=== PATIENT | male | born 1930 | race Caucasian/White ===

== ENCOUNTER 2017-02-12 05:47 | Inpatient (IN) | payer OTHER ==
[~2017-02-12] VITALS: Ht 188 cm; Wt 95.7 kg
[2017-02-12] VITALS (12 sets, daily range): BP systolic 84–130; BP diastolic 53–95; PULSE 47–72; TEMP 36.4–36.7; O2SAT 92–100; Ht 188 cm; Wt 95.7 kg
--- NOTE | 2017-02-12 08:29 | DIAGNOSTIC IMAGING REPORT ---
CHEST ONE VIEW PORTABLE HISTORY: Respiratory failure, seizure, intubated COMPARISON: Chest 02/12/2017. FINDINGS: Endotracheal tube terminates 4.3 cm from the antonino. No pleural effusions. No pneumothorax. Improved interstitial thickening within the left lung. Right perihilar airspace opacity has slightly progressed. The heart is stable in size. 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 IMPRESSION: 1. Right perihilar groundglass airspace opacities have slightly progressed. There is improvement in the interstitial thickening within the left lung. This may represent asymmetric pulmonary edema or an atypical pneumonia. 2. Endotracheal tube terminates 4.3 cm from the antonino. Electronically signed by: Warren Hwang M.D. 02/12/2017 8:27 AM Dictated Date/Time: 02/12/2017 8:20 AM
--- NOTE | 2017-02-12 09:03 | History and Physical ---
History & Physical Date & Time of Service: Feb 12, 2017 at 08:38 Chief Complaint: Encephalopathy Primary Care Physician: No Doctor, Assigned History of Present Illness Source: clinic records, hospital records Patient is an 86 y/o male, with PMHx of HTN, COPD, cardiac arrhythmia, hypothyroidism, abdominal aneurysm, CKD, h/o TIA/CVA, and GERD, who presented to [facility] due to confusion. Patient is currently intubated and history came from transferred records. Per records, patient lives with his daughter. He normally sleeps in a recliner, and was found beside the recliner, confused, slurred speech, and bedside table knocked over. He was last noted in his normal state of health around 10:00PM on 02/11. He does have a h/o TIAs in the past with similar presentation. Case was reviewed with [facility] neurologist that agreed patient did not qualify for thrombolytics. He was recently diagnosed with an abdominal aneurysm, but according to records, it has been decided that no intervention will be done. ROS cannot be obtained secondary to sedation/intubation. Per LABOR CUSTODIAN, patient was agitated at [facility] and was treated with IV Ativan. Had pulmonary edema w/ O2 sats in the 70s. Per records, patient did NOT want mechanical ventilation but POA overruled. He was treated w/ IV Bumex and has diuresed around 1200 ml since transfer. At [facility]: Head CT- unremarkable for acute process EEG- abnormal w/ moderate degree of encephalopathy and focal neuronal disturbance present in L parasagittal head region EKG without acute ischemic changes, trop mildly elevated at 0.063 Past Medical/Surgical History HTN COPD cardiac arrhythmia abdominal aneurysm h/o TIA/CVA Hypothyroidism GERD CKD Family History Unable to obtain at this time Social History Unable to obtain complete social history at this time Smoking Status: Unknown if Ever Smoked Housing status: lives with family (daughter ) Allergies Coded Allergies: Phenytoin (Verified Allergy, Severe, rash, 02/12/17) Physical Exam Vital Signs Date Time Temp Pulse Resp B/P (MAP) Pulse Ox O2 Delivery O2 Flow Rate FiO2 02/12/17 08:08 36.4 62 18 84/62 (69) 92 Mechanical Ventilator 80 General Appearance: no apparent distress Head: normocephalic, atraumatic Eyes: PERRL Neck: supple Respiratory/Chest: no accessory muscle use, + crackles (bilateral lung bases ) , + pertinent finding (intubated) Abdomen/GI: normal bowel sounds, non tender, soft Genitourinary - Male: + pertinent finding (Abebe- clear/yellow urine ) Extremities/Musculoskelatal: + swelling (+1-2 pitting edema of bilateral lower extremities ) Neurologic/Psych: + pertinent finding (sedated but responds to stimulati with movement ) Skin: normal color, warm/dry, no rash Diagnostics Laboratory Results Microbiology Results 02/12/17 MRSA DNA Surveillance Screen, Received Pending Diagnostic Radiology CHEST ONE VIEW PORTABLE HISTORY: Respiratory failure, seizure, intubated COMPARISON: Chest 02/12/2017. FINDINGS: Endotracheal tube terminates 4.3 cm from the antonino. No pleural effusions. No pneumothorax. Improved interstitial thickening within the left lung. Right perihilar airspace opacity has slightly progressed. The heart is stable in size. 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 IMPRESSION: 1. Right perihilar groundglass airspace opacities have slightly progressed. There is improvement in the interstitial thickening within the left lung. This may represent asymmetric pulmonary edema or an atypical pneumonia. 2. Endotracheal tube terminates 4.3 cm from the antonino. Electronically signed by: Warren Hwang M.D. 02/12/2017 8:27 AM Dictated Date/Time: 02/12/2017 8:20 AM The status of this report is Signed. Draft = Not yet reviewed or approved by Radiologist. Signed = Reviewed and approved by Radiologist. KUB CLINICAL HISTORY: OGT placement verification COMPARISON STUDY: No previous studies for comparison. FINDINGS: The study is performed in a portable fashion and is limited from a technical standpoint. An enteric tube projects over the gastric cardia. There is no pathologic bowel dilatation. There is a calcified abdominal aortic aneurysm. IMPRESSION: 1. Calcified abdominal aortic aneurysm measuring 5 cm uncorrected for magnification 2. Enteric tube projected over the gastric cardia Electronically signed by: Jeffry Jones M.D. 02/12/2017 11:53 AM Dictated Date/Time: 02/12/2017 11:51 AM The status of this report is Signed. Draft = Not yet reviewed or approved by Radiologist. Signed = Reviewed and approved by Radiologist. Impression Assessment and Plan Patient is an 86 y/o male, with PMHx of HTN, COPD, cardiac arrhythmia, hypothyroidism, abdominal aneurysm, CKD, h/o TIA/CVA, and GERD, who was a direct transfer from [facility] because of altered mental status, complicated by respiratory distress requiring ventilation. 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: - Intubated- sedation w/ Precedex - IV Lasix 40 mg BID - Abebe placed- monitor I&Os and daily weights - ECHO- mild LVH, systolic function normal, grade I diastolic dysfunction, right ventricular systolic pressure is normal Elevated trop, ?secondary to NSTEMI vs demand ischemia: - Cardiac monitoring - Trend cardiac enzymes - ASA 81 mg daily CKD- unknown baseline kidney function: Follow PRP Hypothyroidism- TSH 3.060: Continue Synthroid 25 mcg daily h/o TIA/CVA: Started ASA 81 mg daily Abdominal aneurysm: No surgical intervention desired GI prophylaxis: IV Pepcid DVT prophylaxis: Heparin SQ TID Code Status: FULL, NO MECHANICAL VENTILATION Dispo: From home, lives w/ daughter- will need CM and PT/OT consultation once status improves Level of Care Critical Care Resuscitation Status [facility] Prophylaxis Given or contraindicated: Unfractionated heparin SQ
[2017-02-12 09:09] LABS: BASO % 0.1 %; BASO ABS # 0.01 K/uL (0-0.2); COMPLETE YES; HEMATOCRIT 37.3 % (42-52); IG% 0.3 %; LYMPH % 5.3 %; LYMPH ABS # 0.67 K/uL (1.2-3.4); MEAN CELL VOLUME 92.6 fL (80-100); MEAN CORPUSCULAR HEMOGLOBIN 31.3 pg (25-34); MEAN CORPUSCULAR HGB CONC 33.8 g/dl (32-36); MEAN PLATELET VOLUME 10.6 fL (7.4-10.4); MONO % 13.3 %; PLATELET COUNT 119 K/uL (130-400); RED BLOOD COUNT 4.03 M/uL (4.7-6.1); WHITE BLOOD COUNT 12.67 K/uL (4.8-10.8)
[2017-02-12 09:21] LABS: INR 1.1 (0.9-1.1); PARTIAL THROMBOPLASTIN RATIO 1.1
[2017-02-12] MEDS ORDERED: PERFLUTREN LIPID MICROSPHERE (DEFINITY) IV ONE (09:29)
[2017-02-12 09:35] LABS: BUN/CREATININE RATIO 12.8 (10-20); CALCIUM 8.2 mg/dl (8.5-10.1); CREATININE 2.14 mg/dl (0.60-1.40); MAGNESIUM 1.9 mg/dl (1.8-2.4); POTASSIUM 3.6 mmol/L (3.5-5.1)
[2017-02-12] MEDS ORDERED: NURSING VERBAL MED ORDER ONE (09:45)
[2017-02-12 09:55] LABS: ALB/GLOB RATIO 1.1 (0.9-2); PHOSPHORUS 2.8 mg/dl (2.5-4.9)
[2017-02-12] MEDS ORDERED: DexMEDEtomidine HCL IV 200 MCG in SODIUM CHLORIDE 0.9% 50ML 48 ML IV STA (09:58)
[2017-02-12] MEDS ORDERED: FAMOTIDINE IV INJ 20 MG in DEXTROSE 5% 100ML 100 ML IV SCH (10:00)
[2017-02-12 10:04] LABS: ISTAT ALLEN TEST Pass; ISTAT ARTERIAL BLOOD GAS HCO3 17 meq/L (19-24); ISTAT ARTERIAL BLOOD GAS PCO2 30 mmHg (35-46); ISTAT ARTERIAL BLOOD GAS PO2 72 mmHg (80-95); ISTAT ARTERIAL BLOOD GAS pH 7.36 (7.35-7.45); ISTAT CARBON DIOXIDE 18 mEq/l (24-31); ISTAT DELIVERY SYSTEM Ventilator; ISTAT FIO2 50 %; ISTAT PEEP 5; ISTAT RATE 16; ISTAT SITE L Radial; VE 8; Vt 500
[2017-02-12] MEDS: DexMEDEtomidine HCL IV 200 MCG in SODIUM CHLORIDE 0.9% 50ML 48 ML IV PRN ×3 (10:12→20:31)
[2017-02-12] MEDS: ASPIRIN 81 MG CHEW PO SCH ×2 (10:15→11:15)
[2017-02-12] MEDS: FUROSEMIDE INJ 40 MG in SYRINGE 0 ML IV SCH ×2 (10:50→21:00)
[2017-02-12] MEDS: FAMOTIDINE IV INJ 20 MG in SYRINGE 3 ML IV SCH ×2 (10:50→22:22)
--- NOTE | 2017-02-12 11:54 | DIAGNOSTIC IMAGING REPORT ---
KUB CLINICAL HISTORY: OGT placement verification COMPARISON STUDY: No previous studies for comparison. FINDINGS: The study is performed in a portable fashion and is limited from a technical standpoint. An enteric tube projects over the gastric cardia. There is no pathologic bowel dilatation. There is a calcified abdominal aortic aneurysm. IMPRESSION: 1. Calcified abdominal aortic aneurysm measuring 5 cm uncorrected for magnification 2. Enteric tube projected over the gastric cardia Electronically signed by: Jeffry Jones M.D. 02/12/2017 11:53 AM Dictated Date/Time: 02/12/2017 11:51 AM
[2017-02-12] MEDS ORDERED: POTASSIUM CHLORIDE PWD 20 MEQ PACK PO ONE (12:00)
--- NOTE | 2017-02-12 12:05 | ECHOCARDIOGRAM REPORT ---
*NOTICE TO RECEIVING LIBERTARIAN AGENCY This information is strictly Confidential and protected under [place] law. [place] law prohibits you from making any further disclosure of this information unless further disclosure is expressly permitted by the written consent of the person to whom it pertains or is authorized by law. A general authorization for the release of medical or other information is not sufficient for this purpose. Hospital accepts no responsibility if the information is made available to any other person, INCLUDING THE PATIENT. Interpretation Summary * Name: SOCRATES SMITH Study Date: 02/12/2017 10:04 AM BP: 130/95 mmHg * Patient Location: [facility] HR: 72 * : 1930 (M/d/yyyy) Gender: Male Height: 74 in * Age: 86 yrs Ethnicity: CA Weight: 216 lb * Performed By: Sudha Caruso RDCS * * Reason For Study: AFIB * BSA: 2.2 m2 * -- Conclusions -- * Overall image quality was suboptimal * There is mild concentric left ventricular hypertrophy. * Left ventricular systolic function is normal. * Grade I diastolic dysfunction, (abnormal relaxation pattern). * Right ventricular systolic pressure is normal. Procedure Details * A contrast injection of Definity was performed to improve assessment of LV function. * Contrast was injected into an intravenous site in the right arm. * One vial of Definity ultrasound contrast was diluted in normal saline to a total volume of 10 ml. A total of '2' ml of solution was administered during imaging. * Lot # [id number] of Definity utilized for procedure. * Expiration date MAR 18. * The attending nurse who injected the contrast agent was SURINDER CONLEY. Left Ventricle * The left ventricle is grossly normal size. * There is mild concentric left ventricular hypertrophy. * Ejection Fraction = 50-55%. * Left ventricular systolic function is normal. * Grade I diastolic dysfunction, (abnormal relaxation pattern). * Regional wall motion abnormalities cannot be excluded due to limited visualization. Right Ventricle * The right ventricle is normal in size and function. * The right ventricular systolic function is normal as assessed by tricuspid annular plane systolic excursion (TAPSE) (normal >1.5 cm). Atria * The left atrial size is normal. * Right atrium not well visualized. Mitral Valve * The mitral valve is grossly normal. * Significant mitral regurgitation is absent. Tricuspid Valve * The tricuspid valve is not well visualized. * There is trace tricuspid regurgitation. * Right ventricular systolic pressure is normal. Aortic Valve * The aortic valve is not well visualized. * No hemodynamically significant valvular aortic stenosis. * There is no significant aortic regurgitation. Pericardium/Pleural * There is no pericardial effusion. MMode 2D Measurements and Calculations LA dimension 3.5 cm LVAd ap4 34.2 cm\S\2 LVLd ap4 8.8 cm EDV(MOD-sp4) 110.5 ml EDV(sp4-el) 112.4 ml LVAs ap4 19.3 cm\S\2 LVLs ap4 7.9 cm ESV(MOD-sp4) 39.9 ml ESV(sp4-el) 39.9 ml EF(MOD-sp4) 63.9 % EF(sp4-el) 64.5 % LVAd ap2 33.1 cm\S\2 LVLd ap2 8.2 cm EDV(MOD-sp2) 108.9 ml EDV(sp2-el) 112.7 ml LVAs ap2 19.8 cm\S\2 LVLs ap2 7.7 cm ESV(MOD-sp2) 42.8 ml ESV(sp2-el) 43.6 ml EF(MOD-sp2) 60.7 % EF(sp2-el) 61.3 % LVLd %diff -7.42 % EDV(MOD-bp) 114.2 ml LVLs %diff -3.11 % ESV(MOD-bp) 40.8 ml EF(MOD-bp) 64.3 % SV(MOD-sp4) 70.6 ml SI(MOD-sp4) 31.4 ml/m\S\2 SV(MOD-sp2) 66.1 ml SI(MOD-sp2) 29.4 ml/m\S\2 SV(MOD-bp) 73.5 ml SI(MOD-bp) 32.7 ml/m\S\2 SV(sp4-el) 72.5 ml SI(sp4-el) 32.3 ml/m\S\2 SV(sp2-el) 69.1 ml SI(sp2-el) 30.8 ml/m\S\2 Doppler Measurements and Calculations MV E max renita 55.3 cm/sec MV A max renita 92.9 cm/sec MV E/A 0.60 MV dec time 0.29 sec Ao V2 max 97.4 cm/sec Ao max PG 3.8 mmHg Ao max PG (full) 2.8 mmHg LV V1 max PG 0.99 mmHg LV V1 max 49.8 cm/sec TR max renita 182.8 cm/sec
--- NOTE | 2017-02-12 12:42 | Critical Care Consultation ---
Critical Care Consultation Date of Consultation: Feb 12, 2017. Attending Physician: Haider Le M.D. Reason for Consultation: Respiratory failure History of Present Illness This is a 86 year-old male transferred from [facility] for further management. The patient has a history of TIA/CVA, seizures, aortic aneurysm, carotid disease , was brought to ED of [facility] on the morning 02/11 after he was found to be confused, with slurring of the speech next to the recliner where he usually sleeps. His SBP was elevated at 190. Was admitted, CT brain was negative for CVA, neurology was contacted, deemed not a candidate for thrombolysis, recommended a CT angiogram of the brain, but could not be performed because of kidney insufficiency. Overnight, the patient was restless, was medicated with Ativan couple of times. Later he developed rapid a-fib, became restless again, developed pink frothy sputum, required endotracheal intubation. IV fluids were stopped. Patient was transferred by helicopter to our ICU. Patient displayed purposeful actions, reaching for the ET tube, was medicated with 200 mcg of fentanyl en route. Past Medical/Surgical History TIA/CVA HTN Hypothyroidism COPD Arrhythmia GERD Aortic aneurysm - refused surgery [place] Family History Unable to obtain Social History Unable to obtain Smoking Status: Unknown if Ever Smoked Allergies Coded Allergies: Phenytoin (Verified Allergy, Severe, rash, 02/12/17) Current Inpatient Medications Current Inpatient Medications Medications (Trade) Dose Ordered Sig/Casey Route Start Time Stop Time Status Last Admin Dose Admin Dexmedetomidine HCl 200 mcg/ Sodium Chloride 50 ml @ 0 mls/hr Q0M PRN IV 02/12/17 09:45 02/16/17 09:44 02/12/17 10:12 9.8 MLS/HR Furosemide 40 mg/ Syringe 4 ml @ 4 mls/min BID IV 02/12/17 10:00 03/14/17 09:59 02/12/17 10:50 4 MLS/MIN Aspirin (Aspirin Chew) 324 mg QD PO 02/12/17 10:15 03/14/17 10:14 02/12/17 11:15 324 MG Heparin Sodium (Porcine) (Heparin Sq 5000 Unit/0.5ml) 5,000 unit Q8 SQ 02/12/17 14:00 03/14/17 13:59 Famotidine 20 mg/ Syringe 5 ml @ 2.5 mls/min Q12H IV 02/12/17 11:00 03/14/17 10:59 02/12/17 10:50 2.5 MLS/MIN Potassium Chloride (Klor-Con Pwd) 40 meq ONE PO 02/12/17 11:00 03/14/17 10:59 UNV Review of Systems Unable to obtain as the patient is intubated Physical Exam Date Time Temp Pulse Resp B/P (MAP) Pulse Ox O2 Delivery O2 Flow Rate FiO2 02/12/17 10:00 72 18 130/95 (107) 100 Mechanical Ventilator 50 02/12/17 08:28 36.4 62 19 84/62 95 Mechanical Ventilator 50 02/12/17 08:08 36.4 62 18 84/62 (69) 92 Mechanical Ventilator 80 02/12/17 07:41 50 Elderly male, intubated General Appearance: WD/WN, no apparent distress Head: normocephalic, atraumatic Eyes: PERRLA, no discharge, sclerae normal Neck: trachea midline, supple Respiratory: other (bilateral crackles) Cardiovasular: regular rate/rhythm, normal S1S2 Abdomen: non tender, no rebound, no guarding Upper Extremities: no edema Lower Extremities: edema Edema: Bilateral LE (2+) Neuro: other (sedated, but has puproseful movements with greenhouse staff sedation) Laboratory Results Last 24 Hours Test 02/12/17 08:58 02/12/17 09:45 02/12/17 10:21 White Blood Count 12.67 K/uL Red Blood Count 4.03 M/uL Hemoglobin 12.6 g/dL Hematocrit 37.3 % Mean Corpuscular Volume 92.6 fL Mean Corpuscular Hemoglobin 31.3 pg Mean Corpuscular Hemoglobin Concent 33.8 g/dl Platelet Count 119 K/uL Mean Platelet Volume 10.6 fL Neutrophils (%) (Auto) 81.0 % Lymphocytes (%) (Auto) 5.3 % Monocytes (%) (Auto) 13.3 % Eosinophils (%) (Auto) 0.0 % Basophils (%) (Auto) 0.1 % Neutrophils # (Auto) 10.26 K/uL Lymphocytes # (Auto) 0.67 K/uL Monocytes # (Auto) 1.69 K/uL Eosinophils # (Auto) 0.00 K/uL Basophils # (Auto) 0.01 K/uL RDW Standard Deviation 50.8 fL RDW Coefficient of Variation 15.0 % Immature Granulocyte % (Auto) 0.3 % Immature Granulocyte # (Auto) 0.04 K/uL Prothrombin Time 12.0 SECONDS Prothromb Time International Ratio 1.1 Activated Partial Thromboplast Time 29.1 SECONDS Partial Thromboplastin Ratio 1.1 Sodium Level 141 mmol/L Potassium Level 3.6 mmol/L Chloride Level 108 mmol/L Carbon Dioxide Level 22 mmol/L Anion Gap 11.0 mmol/L Blood Urea Nitrogen 27 mg/dl Creatinine 2.14 mg/dl Est Creatinine Clear Calc Drug Dose 27.8 ml/min Estimated GFR () 30.9 Estimated GFR (Non- 26.7 BUN/Creatinine Ratio 12.8 Random Glucose 108 mg/dl Calcium Level 8.2 mg/dl Phosphorus Level 2.8 mg/dl Magnesium Level 1.9 mg/dl Total Bilirubin 1.5 mg/dl Aspartate Amino Transf (AST/SGOT) 57 U/L Alanine Aminotransferase (ALT/SGPT) 20 U/L Alkaline Phosphatase 86 U/L Total Creatine Kinase 1928 U/L Troponin I 0.394 ng/ml Pro-B-Type Natriuretic Peptide 49478 pg/ml Total Protein 6.5 gm/dl Albumin 3.4 gm/dl Globulin 3.1 gm/dl Albumin/Globulin Ratio 1.1 Thyroid Stimulating Hormone (TSH) 3.060 uIu/ml Blood Gas Sample Site L Radial Bedside Blood Gas pH (LAB) 7.36 Bedside Blood Gas pCO2 (LAB) 30 mmHg Bedside Blood Gas pO2 (LAB) 72 mmHg Bedside Blood Gas HCO3 (LAB) 17 meq/L Bedside Blood Gas Total CO2 18 mEq/l Bedside Blood Gas Base Excess (LAB) -8.0 meq/L Bedside Blood Gas O2 Saturation 95.0 % Pelon Test Pass Oxygen Delivery Device Ventilator Bedside Oxygen Rate (breaths/min) 16 Blood Gas Minute Ventilation 8 Bedside FiO2 50 % Blood Gas Tidal Volume 500 Blood Gas PEEP 5 Procalcitonin 0.19 ng/ml Diagnostic Results CXR today: 1. Right perihilar groundglass airspace opacities have slightly progressed. There is improvement in the interstitial thickening within the left lung. This may represent asymmetric pulmonary edema or an atypical pneumonia. 2. Endotracheal tube terminates 4.3 cm from the antonino. CT brain 02/11/17: No bleeding, no acute CVA Assessment & Plan 86 year old male, transferred from [facility], admitted for AMS, developed respiratory distress requiring mechanical ventilation, consistent with pulmonary edema. 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 Daily sedation vacation Avoid benzos. No evidence of seizures. EEG did not show seizures at [place] Pulmonary: Daily spontaneous breathing trials Elevate head Diuresing the patient CXR reviewed, given history, more consistent with pulmoanry edema CVS: Diuresis with BID Lasix 40 mg Monitor troponin levels. Start ASA Echo reviewed, EF seems preserved, no significant valvular disease, but has some LVH and diastolic disfunction. BP is soft, would not tolerate NTG paste HR in the 60s, which is helpful in diastolic heart failure Renal: Has known CKD, not sure of baseline creatinine Supplement K for now, especially when diuresed Keep Abebe in Endo: Resume Synthroid ID: Procalcitonin 0.19 Low threshold to institute Abx, but for the time will hold off GI: NGT inserted Start tube feedings Pepcid for GI bleeding prophylaxis DVT prophylaxis: SC heparin 5000 units q 8 h Critical care time spent with patient, reviewing the chart, greater than 35 minutes. Avtar Waters MD
[2017-02-12] MEDS: HEPARIN SOD 5000 UNIT/0.5 ML CARP SQ SCH ×2 (15:07→22:22)
[2017-02-12] MEDS ORDERED: ALBUMIN HUMAN 25% 12.5 GM/50 ML VIAL IV ONE (20:45)
[2017-02-13] VITALS (17 sets, daily range): BP systolic 111–167; BP diastolic 65–96; PULSE 41–92; TEMP 36.2–37; O2SAT 92–100
[2017-02-13] MEDS: DexMEDEtomidine HCL IV 200 MCG in SODIUM CHLORIDE 0.9% 50ML 48 ML IV PRN ×2 (01:03→04:43)
[2017-02-13] MEDS ORDERED: FENTANYL CITRATE INJ 50 MCG/1 ML 2 ML VIAL IV ONE (01:30)
[2017-02-13] MEDS ORDERED: FENTANYL CITRATE INJ 50 MCG/1 ML 2 ML VIAL IV PRN (04:45)
[2017-02-13 05:20] LABS: ISTAT ARTERIAL BLOOD GAS HCO3 22 meq/L (19-24); ISTAT ARTERIAL BLOOD GAS PCO2 36 mmHg (35-46); ISTAT ARTERIAL BLOOD GAS PO2 129 mmHg (80-95); ISTAT CARBON DIOXIDE 23 mEq/l (24-31); ISTAT DELIVERY SYSTEM Ventilator; ISTAT FIO2 40 %; ISTAT PEEP 5; ISTAT RATE 14; ISTAT SITE L Radial; VE 7.1; Vt 500
[2017-02-13] MEDS: HEPARIN SOD 5000 UNIT/0.5 ML CARP SQ SCH ×3 (06:02→21:06)
[2017-02-13 06:07] LABS: HEMATOCRIT 37.2 % (42-52); MEAN CELL VOLUME 92.1 fL (80-100); MEAN CORPUSCULAR HEMOGLOBIN 30.2 pg (25-34); MEAN CORPUSCULAR HGB CONC 32.8 g/dl (32-36); RED BLOOD COUNT 4.04 M/uL (4.7-6.1); WHITE BLOOD COUNT 9.14 K/uL (4.8-10.8)
[2017-02-13] MEDS: LEVOTHYROXINE 25 MCG TAB PO SCH (06:34)
[2017-02-13 06:40] LABS: BUN/CREATININE RATIO 18.1 (10-20); CALCIUM 8.3 mg/dl (8.5-10.1); CREATININE 2.19 mg/dl (0.60-1.40); MAGNESIUM 1.9 mg/dl (1.8-2.4); POTASSIUM 3.9 mmol/L (3.5-5.1)
[2017-02-13 06:51] LABS: CKMB/CK RATIO 0.9 (0-3.0); PHOSPHORUS 3.3 mg/dl (2.5-4.9)
--- NOTE | 2017-02-13 06:53 | DIAGNOSTIC IMAGING REPORT ---
CHEST ONE VIEW PORTABLE CLINICAL HISTORY: Tube placement. COMPARISON STUDY: Chest radiograph February 12, 2017. FINDINGS: The tip of the endotracheal tube is 4.3 cm above the antonino. The tip of the nasogastric tube is below the lower aspect of this image but at least within the body of the stomach. There is no pneumothorax. No pleural effusion is identified. Dilatation of the aortic arch and descending thoracic aorta is unchanged. Right lung and left basilar airspace opacity persists. Right lung airspace opacity is slightly improved. IMPRESSION: 1. Tip of endotracheal tube 4.3 cm above the antonino. 2. Slight improvement in extensive right lung airspace opacity with persistent left basilar opacity. The findings favor multifocal pneumonia although asymmetric pulmonary edema could appear similar. Electronically signed by: Aaron Ferreira M.D. 02/13/2017 6:52 AM Dictated Date/Time: 02/13/2017 6:49 AM
--- NOTE | 2017-02-13 07:39 | DIAGNOSTIC IMAGING REPORT ---
CHEST ONE VIEW PORTABLE CLINICAL HISTORY: Pulmonary edema. COMPARISON STUDY: Chest radiograph February 13, 2017 at 12:12 AM. FINDINGS: The tip of the nasogastric tube is below the lower aspect of this image but at least within the proximal stomach. Tip of endotracheal tube is 3.8 cm above the antonino. Aneurysmal dilatation of the aortic arch is unchanged. No pneumothorax or pleural effusion is identified. Left basilar opacity persists. Right lung airspace opacities have likely improved although this could be technical. IMPRESSION: 1. Tip of endotracheal tube 3.8 cm above the antonino. 2. Right lung and left basilar airspace opacity. Suspected slight improvement since prior exam. The findings could reflect pneumonia or asymmetric pulmonary edema. Electronically signed by: Aaron Ferreira M.D. 02/13/2017 7:38 AM Dictated Date/Time: 02/13/2017 7:36 AM
[2017-02-13 07:47] LABS: MEAN PLATELET VOLUME 11.1 fL (7.4-10.4); PLATELET COUNT 94 K/uL (130-400)
[2017-02-13 07:48] LABS: ANISOCYTOSIS PRESENT; BASO % 0.1 %; BASO ABS # 0.01 K/uL (0-0.2); COMPLETE YES; ECHINOCYTES 2+; EOS % 0.4 %; IG% 0.2 %; LYMPH % 11.5 %; LYMPH ABS # 1.05 K/uL (1.2-3.4); MONO % 9.3 %; NEUT % 78.5 %; PLT ESTIMATE DECREASED; TOXIC GRANULATION 1+
[2017-02-13] MEDS: FUROSEMIDE INJ 40 MG in SYRINGE 0 ML IV SCH ×2 (09:20→21:04)
[2017-02-13] MEDS: POTASSIUM CHLR 10 MEQ / WTR 10 MEQ in PREMIXED WATER 100 ML IV SCH ×2 (09:20→10:19)
--- NOTE | 2017-02-13 11:10 | Critical Care Progress Note ---
Critical Care Progress Note Date of Service Feb 13, 2017. ICU Day ICU Day Number: [address] Waters Subjective Patient was intubated over night, with reduction of sedation this morning and subsequent extubation. Patient's voice is hoarse after extubation, so questions deferred, but patient does denies chest pain or difficulty breathing. Will reassess patient and obtain ROS in PM Objective GENERAL: alert, well appearing, sitting in bed, no acute distress, non-toxic HEAD: NC/AT EYES: Normal sclera and conjunctiva OROPHARYNX: No exudate, no erythema. Lips, buccal mucosa, and tongue normal and mucous membranes are dry NECK: Supple, no adenopathy LUNGS: Normal chest wall mechanics, Course breath sounds, diminished sounds and diffuse crackles bibasilarly. No wheezes HEART: RRR, S1 and S2 normal, no murmurs appreciated ABDOMEN: Soft, non-tender, normo-active bowel sounds, no masses, no rebound or guarding. SKIN: Warm, pink, dry. No erythema, rashes, or bruising. EXTREMITIES: Grossly normal. Moving all 4 limbs. 1+ pitting edema. Calves supple. NEURO: Alert. No focal deficits. Cranial nerves II-XII grossly intact Current SOFA Score SOFA Score Response (Comments) Value Platelets (x10) < 100 2 Bilirubin (mg/dL) < 1.2 0 [place] Coma Score 13 - 14 1 Level of Hypotension No Hypotension 0 Creatinine (mg/dL) 2.0 - 3.4 2 Total 5 Assessment & Plan Reason critically ill: 86 year old male transferred from [facility] with AMS and respiratory distress, consistent with pulmonary edema, requiring mechanical ventilation. Neuro - RASS -1 to 0. Precedex discontinued this AM. Continue to monitor for changes in RASS - Avoid benzos. - No evidence of seizures, per EEG done at [place] - h/o CVA - monitor for facial changes/changes in mentation - Analgesia: Fentanyl 12.5mcg CV - Vitals HR sinus leonie (helpful given CHF), SBP 100-130 - hemodynamically stable - Echo: Mild concentric LV hypertrophy, EF 50-55%. Grade I diastolic dysfunction , with normal pressures. No significant valvular disease - CHF exacerbation: continue IV Lasix 40 mg BID - NSTEMI vs demand ischemia: trend troponin. Start aspirin Resp - Acute respiratory failure with hypoxia requiring ventilator support. s/p extubation this AM - CXR: Right lung and left basilar airspace opacity. Suspected slight improvement since prior exam. - Continue diuresing the patient with potential improvement in respiration GI/Nutrition - Diet: will consider post speech evaluation at bedside prior to lunch - PPx: Famotidine q12h Renal/ - Known CKD, unsure of baseline creatinine, current creatinine 2.19 - Trend BMP - will replete K+ today in setting of diuresis - Keep Abebe in today ID - No leukocytosis, afebrile, procalcitonin 0.19. Antibiotics not warranted currently - Monitor fever curve and keep low threshold to institute antibiotics if indicated Endo - No history of DM: Glucose checks per ICU protocol - Hypothyroid: Continue levothyroxine Heme - H/H stable. Platelets good. Caogs WNL Access/Line - PIV VTE Prophylaxis - SC heparin 5000 units q 8 h Resident Physician Supervision Note: I was present with Dr. Barry during the history and exam. I discussed the case with the resident and agree with the findings and plan as documented in the note. Any exceptions or clarifications are listed here: 86 year old male, transferred from [facility], admitted for AMS, developed respiratory distress requiring mechanical ventilation, consistent with pulmonary edema. 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 No evidence of seizures. EEG did not show seizures at [place] Pulmonary: Extubated today CXR reviewed, clearing up Elevate head Diuresing the patient CXR reviewed, given history, more consistent with pulmoanry edema CVS: Diuresis with BID Lasix 40 mg Troponin trending down, peaked at 0.431. Likely demand ischemia coupled with kidney failure ASA 81 mg daily Echo reviewed, EF seems preserved, no significant valvular disease, but has some LVH and diastolic disfunction. HR in the 60s, which is helpful in diastolic heart failure Renal: Has known CKD, not sure of baseline creatinine Supplement K, especially when diuresed Keep Abebe in Endo: Continue Synthroid ID: Procalcitonin 0.19 Low threshold to institute Abx, but for the time will hold off GI: Start oral diet Pepcid for GI bleeding prophylaxis DVT prophylaxis: SC heparin 5000 units q 8 h Critical care time spent with patient, reviewing the chart, greater than 35 minutes. Documented By: Avtar Waters MD Consults & Procedures Consultants: Critical care Procedures: Extubation Data Medications: Current Inpatient Medications Medications (Trade) Dose Ordered Sig/Casey Route Start Time Stop Time Status Last Admin Dose Admin Dexmedetomidine HCl 200 mcg/ Sodium Chloride 50 ml @ 0 mls/hr Q0M PRN IV 02/12/17 09:45 02/16/17 09:44 02/13/17 04:43 14.7 MLS/HR Furosemide 40 mg/ Syringe 4 ml @ 4 mls/min BID IV 02/12/17 10:00 03/14/17 09:59 02/13/17 09:20 4 MLS/MIN Heparin Sodium (Porcine) (Heparin Sq 5000 Unit/0.5ml) 5,000 unit Q8 SQ 02/12/17 14:00 03/14/17 13:59 02/13/17 06:02 5,000 UNIT Famotidine 20 mg/ Syringe 5 ml @ 2.5 mls/min Q12H IV 02/12/17 11:00 03/14/17 10:59 02/12/17 22:22 2.5 MLS/MIN Levothyroxine Sodium (Synthroid Tab) 25 mcg DAILYBB PO 02/13/17 06:00 03/15/17 05:59 02/13/17 06:34 25 MCG Fentanyl Citrate (Fentanyl Inj) 12.5 mcg Q1H PRN IV 02/13/17 04:45 02/27/17 04:44 02/13/17 05:09 12.5 MCG Potassium Chloride 10 meq/ Prmx 100 ml @ 100 mls/hr Q1H IV 02/13/17 08:45 02/13/17 10:44 02/13/17 10:19 100 MLS/HR Aspirin (Aspirin Chew) 81 mg DAILY PO 02/13/17 10:15 03/15/17 10:14 Vital Signs: Date Time Temp Pulse Resp B/P (MAP) Pulse Ox O2 Delivery O2 Flow Rate FiO2 02/13/17 10:00 62 16 140/96 (111) 99 Nasal Cannula 2.0 02/13/17 08:40 100 CPAP 30 Mechanical Ventilator 02/13/17 08:40 30 02/13/17 08:00 36.2 47 16 138/92 (107) 99 CPAP 30 Mechanical Ventilator 02/13/17 07:37 30 02/13/17 07:25 40 02/13/17 06:00 41 17 131/79 (96) 99 Mechanical Ventilator 40 02/13/17 05:10 50 02/13/17 05:01 49 14 149/87 (107) 98 Mechanical Ventilator 40 02/13/17 04:01 47 15 124/92 (103) 99 Mechanical Ventilator 40 02/13/17 04:00 99 Mechanical Ventilator 40 02/13/17 04:00 40 02/13/17 03:01 36.3 47 14 135/82 (99) 99 Mechanical Ventilator 40 02/13/17 02:10 50 02/13/17 02:00 47 16 126/85 (99) 99 Mechanical Ventilator 40 02/13/17 01:00 47 16 116/78 (91) 98 Mechanical Ventilator 40 02/13/17 00:00 36.7 52 16 127/85 (99) 99 Mechanical Ventilator 40 02/12/17 23:59 99 Mechanical Ventilator 40 02/12/17 23:59 40 02/12/17 23:00 47 17 110/74 (86) 97 Mechanical Ventilator 40 02/12/17 22:26 50 02/12/17 22:00 50 16 100/74 (83) 96 Mechanical Ventilator 40 02/12/17 21:00 51 16 107/78 (88) 97 Mechanical Ventilator 40 02/12/17 20:00 36.7 50 18 104/78 (87) 97 Mechanical Ventilator 40 02/12/17 20:00 97 Mechanical Ventilator 40 02/12/17 20:00 40 02/12/17 19:20 50 02/12/17 18:00 53 17 106/76 (86) 97 Mechanical Ventilator 40 02/12/17 17:20 50 02/12/17 16:00 50 02/12/17 16:00 36.4 54 20 118/82 (94) 98 Mechanical Ventilator 50 02/12/17 16:00 100 Mechanical Ventilator 50 02/12/17 14:10 50 02/12/17 14:00 63 22 91/72 (78) 100 Mechanical Ventilator 50 02/12/17 12:00 36.5 60 21 108/53 (71) 95 Mechanical Ventilator 50 02/12/17 12:00 95 Mechanical Ventilator 50 02/12/17 12:00 50 02/12/17 11:12 50 Laboratory Results: Last 24 Hours Test 02/12/17 11:55 02/12/17 16:10 02/12/17 18:16 02/12/17 21:56 Bedside Glucose 79 mg/dl 83 mg/dl Troponin I 0.431 ng/ml 0.352 ng/ml Test 02/13/17 00:25 02/13/17 05:03 02/13/17 05:44 02/13/17 05:47 Bedside Glucose 97 mg/dl 99 mg/dl Blood Gas Sample Site L Radial Bedside Blood Gas pH (LAB) 7.40 Bedside Blood Gas pCO2 (LAB) 36 mmHg Bedside Blood Gas pO2 (LAB) 129 mmHg Bedside Blood Gas HCO3 (LAB) 22 meq/L Bedside Blood Gas Total CO2 23 mEq/l Bedside Blood Gas Base Excess (LAB) -3.0 meq/L Bedside Blood Gas O2 Saturation 99.0 % Pelon Test NA Oxygen Delivery Device Ventilator Bedside Oxygen Rate (breaths/min) 14 Blood Gas Minute Ventilation 7.1 Bedside FiO2 40 % Blood Gas Tidal Volume 500 Blood Gas PEEP 5 White Blood Count 9.14 K/uL Red Blood Count 4.04 M/uL Hemoglobin 12.2 g/dL Hematocrit 37.2 % Mean Corpuscular Volume 92.1 fL Mean Corpuscular Hemoglobin 30.2 pg Mean Corpuscular Hemoglobin Concent 32.8 g/dl Platelet Count 94 K/uL Mean Platelet Volume 11.1 fL Neutrophils (%) (Auto) 78.5 % Lymphocytes (%) (Auto) 11.5 % Monocytes (%) (Auto) 9.3 % Eosinophils (%) (Auto) 0.4 % Basophils (%) (Auto) 0.1 % Neutrophils # (Auto) 7.17 K/uL Lymphocytes # (Auto) 1.05 K/uL Monocytes # (Auto) 0.85 K/uL Eosinophils # (Auto) 0.04 K/uL Basophils # (Auto) 0.01 K/uL RDW Standard Deviation 51.0 fL RDW Coefficient of Variation 15.0 % Immature Granulocyte % (Auto) 0.2 % Immature Granulocyte # (Auto) 0.02 K/uL Toxic Granulation 1+ Platelet Estimate DECREASED Anisocytosis PRESENT Echinocytes 2+ Sodium Level 139 mmol/L Potassium Level 3.9 mmol/L Chloride Level 106 mmol/L Carbon Dioxide Level 22 mmol/L Anion Gap 11.0 mmol/L Blood Urea Nitrogen 40 mg/dl Creatinine 2.19 mg/dl Est Creatinine Clear Calc Drug Dose 27.1 ml/min Estimated GFR () 30.1 Estimated GFR (Non- 25.9 BUN/Creatinine Ratio 18.1 Random Glucose 104 mg/dl Calcium Level 8.3 mg/dl Phosphorus Level 3.3 mg/dl Magnesium Level 1.9 mg/dl Total Bilirubin 1.0 mg/dl Aspartate Amino Transf (AST/SGOT) 39 U/L Alanine Aminotransferase (ALT/SGPT) 19 U/L Alkaline Phosphatase 75 U/L Total Creatine Kinase 556 U/L Creatine Kinase MB 5.1 ng/ml Creatine Kinase MB Ratio 0.9 Troponin I 0.263 ng/ml Total Protein 6.4 gm/dl Albumin 3.2 gm/dl Globulin 3.2 gm/dl Albumin/Globulin Ratio 1.0 Resident Tracking Resident Involvement: Resident Care Provided Care Provided: Adult Hospital Medicine
[2017-02-13] MEDS: FAMOTIDINE IV INJ 20 MG in SYRINGE 3 ML IV SCH (12:18)
[2017-02-13] MEDS: ASPIRIN 81 MG CHEW PO SCH (13:33)
--- NOTE | 2017-02-13 13:47 | Hospitalist Progress Note ---
Hospitalist Progress Note Date of Service Feb 13, 2017. Subjective Pt evaluation today including: conversation w/ patient, physical exam, lab review, review of studies, review of inpatient medication list Voiding: sweeney catheter in place (draining clear/yellow urine ) Patient sleeping, easily wakes to name. Denies any complaints other than sore throat. Recalls he is at [facility] and remembers being at [place]. NPO- per ICU resident note, speech therapy to assess prior to lunch. Extubated today- now on O2 NC Patient denies any fever, chills, sweats, lightheadedness, dizziness, vision changes, CP, palpitations, edema, SOB, wheezing, cough, abdominal pain, nausea, vomiting, diarrhea, urinary symptoms, melena, numbness/tingling, weakness, muscle/joint pain, anxiety/depression, active bleeding, or new skin discoloration/changes. Medications Current Inpatient Medications Medications (Trade) Dose Ordered Sig/Casey Route Start Time Stop Time Status Last Admin Dose Admin Dexmedetomidine HCl 200 mcg/ Sodium Chloride 50 ml @ 0 mls/hr Q0M PRN IV 02/12/17 09:45 02/16/17 09:44 02/13/17 04:43 14.7 MLS/HR Furosemide 40 mg/ Syringe 4 ml @ 4 mls/min BID IV 02/12/17 10:00 03/14/17 09:59 02/13/17 09:20 4 MLS/MIN Heparin Sodium (Porcine) (Heparin Sq 5000 Unit/0.5ml) 5,000 unit Q8 SQ 02/12/17 14:00 03/14/17 13:59 02/13/17 06:02 5,000 UNIT Famotidine 20 mg/ Syringe 5 ml @ 2.5 mls/min Q12H IV 02/12/17 11:00 03/14/17 10:59 02/13/17 12:18 2.5 MLS/MIN Levothyroxine Sodium (Synthroid Tab) 25 mcg DAILYBB PO 02/13/17 06:00 03/15/17 05:59 02/13/17 06:34 25 MCG Fentanyl Citrate (Fentanyl Inj) 12.5 mcg Q1H PRN IV 02/13/17 04:45 02/27/17 04:44 02/13/17 05:09 12.5 MCG Aspirin (Aspirin Chew) 81 mg DAILY PO 02/13/17 10:15 03/15/17 10:14 Objective Vital Signs Date Time Temp Pulse Resp B/P (MAP) Pulse Ox O2 Delivery O2 Flow Rate FiO2 02/13/17 12:00 100 Nasal Cannula 02/13/17 12:00 36.2 65 16 133/91 (105) 99 Nasal Cannula 2.0 02/13/17 10:00 62 16 140/96 (111) 99 Nasal Cannula 2.0 02/13/17 08:40 100 CPAP 30 Mechanical Ventilator 02/13/17 08:40 30 02/13/17 08:00 CPAP 02/13/17 08:00 36.2 47 16 138/92 (107) 99 CPAP 30 Mechanical Ventilator 02/13/17 07:37 30 02/13/17 07:25 40 02/13/17 06:00 41 17 131/79 (96) 99 Mechanical Ventilator 40 02/13/17 05:10 50 02/13/17 05:01 49 14 149/87 (107) 98 Mechanical Ventilator 40 02/13/17 04:01 47 15 124/92 (103) 99 Mechanical Ventilator 40 02/13/17 04:00 99 Mechanical Ventilator 40 02/13/17 04:00 40 02/13/17 03:01 36.3 47 14 135/82 (99) 99 Mechanical Ventilator 40 02/13/17 02:10 50 02/13/17 02:00 47 16 126/85 (99) 99 Mechanical Ventilator 40 02/13/17 01:00 47 16 116/78 (91) 98 Mechanical Ventilator 40 02/13/17 00:00 36.7 52 16 127/85 (99) 99 Mechanical Ventilator 40 02/12/17 23:59 99 Mechanical Ventilator 40 02/12/17 23:59 40 02/12/17 23:00 47 17 110/74 (86) 97 Mechanical Ventilator 40 02/12/17 22:26 50 02/12/17 22:00 50 16 100/74 (83) 96 Mechanical Ventilator 40 02/12/17 21:00 51 16 107/78 (88) 97 Mechanical Ventilator 40 02/12/17 20:00 36.7 50 18 104/78 (87) 97 Mechanical Ventilator 40 02/12/17 20:00 97 Mechanical Ventilator 40 02/12/17 20:00 40 11/14/17 19:20 50 02/12/17 18:00 53 17 106/76 (86) 97 Mechanical Ventilator 40 02/12/17 17:20 50 02/12/17 16:00 50 02/12/17 16:00 36.4 54 20 118/82 (94) 98 Mechanical Ventilator 50 02/12/17 16:00 100 Mechanical Ventilator 50 02/12/17 14:10 50 02/12/17 14:00 63 22 91/72 (78) 100 Mechanical Ventilator 50 Physical Exam General Appearance: no apparent distress, + pertinent finding (O2 NC ) Eyes: PERRL ENT: hearing grossly normal Neck: supple Respiratory/Chest: no respiratory distress, no accessory muscle use, + decreased breath sounds Cardiovascular: regular rate, rhythm Abdomen: normal bowel sounds, non tender, soft Extremities: no calf tenderness, + swelling (+1 pitting edema to bilateral lower extremities ) Neurologic/Psychiatric: alert Skin: normal color, warm/dry, no rash Laboratory Results Last 24 Hours Test 02/12/17 16:10 02/12/17 18:16 02/12/17 21:56 02/13/17 00:25 Troponin I 0.431 ng/ml 0.352 ng/ml Bedside Glucose 83 mg/dl 97 mg/dl Test 02/13/17 05:03 02/13/17 05:44 02/13/17 05:47 Blood Gas Sample Site L Radial Bedside Blood Gas pH (LAB) 7.40 Bedside Blood Gas pCO2 (LAB) 36 mmHg Bedside Blood Gas pO2 (LAB) 129 mmHg Bedside Blood Gas HCO3 (LAB) 22 meq/L Bedside Blood Gas Total CO2 23 mEq/l Bedside Blood Gas Base Excess (LAB) -3.0 meq/L Bedside Blood Gas O2 Saturation 99.0 % Pelon Test NA Oxygen Delivery Device Ventilator Bedside Oxygen Rate (breaths/min) 14 Blood Gas Minute Ventilation 7.1 Bedside FiO2 40 % Blood Gas Tidal Volume 500 Blood Gas PEEP 5 White Blood Count 9.14 K/uL Red Blood Count 4.04 M/uL Hemoglobin 12.2 g/dL Hematocrit 37.2 % Mean Corpuscular Volume 92.1 fL Mean Corpuscular Hemoglobin 30.2 pg Mean Corpuscular Hemoglobin Concent 32.8 g/dl Platelet Count 94 K/uL Mean Platelet Volume 11.1 fL Neutrophils (%) (Auto) 78.5 % Lymphocytes (%) (Auto) 11.5 % Monocytes (%) (Auto) 9.3 % Eosinophils (%) (Auto) 0.4 % Basophils (%) (Auto) 0.1 % Neutrophils # (Auto) 7.17 K/uL Lymphocytes # (Auto) 1.05 K/uL Monocytes # (Auto) 0.85 K/uL Eosinophils # (Auto) 0.04 K/uL Basophils # (Auto) 0.01 K/uL RDW Standard Deviation 51.0 fL RDW Coefficient of Variation 15.0 % Immature Granulocyte % (Auto) 0.2 % Immature Granulocyte # (Auto) 0.02 K/uL Toxic Granulation 1+ Platelet Estimate DECREASED Anisocytosis PRESENT Echinocytes 2+ Sodium Level 139 mmol/L Potassium Level 3.9 mmol/L Chloride Level 106 mmol/L Carbon Dioxide Level 22 mmol/L Anion Gap 11.0 mmol/L Blood Urea Nitrogen 40 mg/dl Creatinine 2.19 mg/dl Est Creatinine Clear Calc Drug Dose 27.1 ml/min Estimated GFR () 30.1 Estimated GFR (Non- 25.9 BUN/Creatinine Ratio 18.1 Random Glucose 104 mg/dl Calcium Level 8.3 mg/dl Phosphorus Level 3.3 mg/dl Magnesium Level 1.9 mg/dl Total Bilirubin 1.0 mg/dl Aspartate Amino Transf (AST/SGOT) 39 U/L Alanine Aminotransferase (ALT/SGPT) 19 U/L Alkaline Phosphatase 75 U/L Total Creatine Kinase 556 U/L Creatine Kinase MB 5.1 ng/ml Creatine Kinase MB Ratio 0.9 Troponin I 0.263 ng/ml Total Protein 6.4 gm/dl Albumin 3.2 gm/dl Globulin 3.2 gm/dl Albumin/Globulin Ratio 1.0 Bedside Glucose 99 mg/dl Assessment and Plan Patient is an 86 y/o male, with PMHx of HTN, COPD, cardiac arrhythmia, hypothyroidism, abdominal aneurysm, CKD, h/o TIA/CVA, and GERD, who was a direct transfer from [facility] because of altered mental status, complicated by respiratory distress requiring ventilation. Acute respiratory failure w/ hypoxia, acute diastolic CHF exacerbation- management as per watch caser: - Admitted to ICU - Intubated- sedation w/ Precedex; Extubated on 02/13, now on O2 2L NC - IV Lasix 40 mg BID - Sweeney placed- monitor I&Os and daily weights - ECHO- mild LVH, systolic function normal, grade I diastolic dysfunction, right ventricular systolic pressure is normal Elevated trop, ?secondary to NSTEMI vs demand ischemia: - Cardiac monitoring - Trend cardiac enzymes- peak trop 0.431 - ASA 81 mg daily CKD- unknown baseline kidney function- STABLE: Follow PRP Hypothyroidism- TSH 3.060: Continue Synthroid 25 mcg daily h/o TIA/CVA: Started ASA 81 mg daily Abdominal aneurysm: No surgical intervention desired GI prophylaxis: IV Pepcid DVT prophylaxis: Heparin SQ TID Code Status: FULL, NO MECHANICAL VENTILATION Dispo: From home, lives w/ daughter- will need CM and PT/OT consultation once status improves
[2017-02-13] MEDS ORDERED: ACETAMINOPHEN 325 MG TAB PO STA (21:55)
[2017-02-14] VITALS (26 sets, daily range): BP systolic 100–189; BP diastolic 65–106; PULSE 62–93; TEMP 36.7–37.8; O2SAT 91–100
[2017-02-14] MEDS ORDERED: HydrALAZINE HCL 20 MG/ML VIAL IV. STA ×2 (00:25→22:18)
[2017-02-14] MEDS: LEVOTHYROXINE 25 MCG TAB PO SCH (05:36)
[2017-02-14] MEDS: HEPARIN SOD 5000 UNIT/0.5 ML CARP SQ SCH ×3 (05:37→20:09)
[2017-02-14 05:54] LABS: BASO % 0.2 %; BASO ABS # 0.02 K/uL (0-0.2); COMPLETE YES; EOS % 0.5 %; HEMATOCRIT 37.5 % (42-52); IG% 0.3 %; LYMPH % 13.7 %; LYMPH ABS # 1.18 K/uL (1.2-3.4); MEAN CELL VOLUME 90.1 fL (80-100); MEAN CORPUSCULAR HEMOGLOBIN 30.8 pg (25-34); MEAN CORPUSCULAR HGB CONC 34.1 g/dl (32-36); MONO % 10.9 %; NEUT % 74.4 %; PLATELET COUNT 138 K/uL (130-400); RED BLOOD COUNT 4.16 M/uL (4.7-6.1)
[2017-02-14 06:46] LABS: ALB/GLOB RATIO 1.1 (0.9-2); BUN/CREATININE RATIO 21.2 (10-20); CALCIUM 8.5 mg/dl (8.5-10.1); CREATININE 2.32 mg/dl (0.60-1.40); MAGNESIUM 2.1 mg/dl (1.8-2.4); PHOSPHORUS 2.4 mg/dl (2.5-4.9); POTASSIUM 3.1 mmol/L (3.5-5.1)
--- NOTE | 2017-02-14 06:59 | DIAGNOSTIC IMAGING REPORT ---
CHEST ONE VIEW PORTABLE CLINICAL HISTORY: Pulmonary edema COMPARISON STUDY: 02/13/2017 FINDINGS: The heart remains enlarged. There is persistent dilatation of the aortic arch. There has been interval removal of the nasogastric tube and endotracheal tube. There is minimal interval improvement in the right lung airspace opacities. Left medial basal airspace opacities remain stable. There is minor blunting of the right costophrenic angle.[ IMPRESSION: 1. Continued slight improvement in the right lung airspace opacities 2. Interval removal of the endotracheal tube and nasogastric tubes. Electronically signed by: Jeffry Jones M.D. 02/14/2017 6:57 AM Dictated Date/Time: 02/14/2017 6:56 AM
--- NOTE | 2017-02-14 07:35 | DIAGNOSTIC IMAGING REPORT ---
RIGHT HAND 3 VIEWS CLINICAL HISTORY: Right hand pain and swelling. FINDINGS: 3 portable views of the right hand are obtained. No prior studies are available for comparison at the time of dictation. The skeletal structures are osteopenic. There is a minimally distracted avulsion fracture through the base of the first distal phalanx with intra-articular extension. There is erosive change versus age indeterminant posttraumatic change seen involving the tuft of the third distal phalanx. Soft tissue edema is present throughout the hand, greatest in the thumb. There is advanced osteoarthritic change at the first carpometacarpal joint with bony sclerosis, overgrowth, subchondral cyst formation, and mild subluxation. Mild osteoarthritic change is also seen involving the first metacarpophalangeal joint as well as the interphalangeal joints. IMPRESSION: 1. There is a mildly distracted fracture through the base of the first distal phalanx with intra-articular extension. 2. There is erosive change versus age indeterminant posttraumatic change involving the tuft of the third distal phalanx. 3. Soft tissue edema is present throughout the hand. 4. Osteopenia and arthritic change as above. Electronically signed by: Mauricio Shetty M.D. 02/14/2017 7:34 AM Dictated Date/Time: 02/14/2017 7:29 AM
[2017-02-14] MEDS: POT PHOSPHATE MONOBASIC W/ SOD TAB PO SCH ×4 (08:03→20:08)
[2017-02-14] MEDS: POTASSIUM CITRATE 10 MEQ TAB PO SCH ×3 (08:04→20:07)
[2017-02-14] MEDS: FUROSEMIDE INJ 40 MG in SYRINGE 0 ML IV SCH (08:05)
[2017-02-14] MEDS: ASPIRIN 81 MG CHEW PO SCH (08:05)
--- NOTE | 2017-02-14 10:35 | Critical Care Progress Note ---
Critical Care Progress Note Date of Service Feb 14, 2017. ICU Day ICU Day Number: [address] Waters Subjective Patient well, denies acute overnight events. Is pleasantly disoriented. Says he is comfortable breathing on room air. Denies chest pain or palpitations. Tolerating diet without N/V or abdominal pain. Abebe in situ. Has not had a BM yet, but denies feeling constipated Objective GENERAL: alert, well appearing, sitting out of bed, no acute distress, non- toxic HEAD: NC/AT EYES: Normal sclera and conjunctiva OROPHARYNX: No exudate, no erythema. Lips, buccal mucosa, and tongue normal and mucous membranes are dry NECK: Supple, no adenopathy LUNGS: Normal chest wall mechanics, Course breath sounds, diminished sounds and diffuse crackles bibasilarly. No wheezes HEART: RRR, S1 and S2 normal, no murmurs appreciated ABDOMEN: Soft, non-tender, normo-active bowel sounds, no masses, no rebound or guarding. SKIN: Warm, pink, dry. No erythema, rashes, or bruising. EXTREMITIES: Grossly normal. Moving all 4 limbs. 1+ pitting edema - although skin less tense. Calves supple. NEURO: Alert. Oriented to person only. No focal deficits. Cranial nerves II-XII grossly intact Current SOFA Score SOFA Score Response (Comments) Value Platelets (x10) < 150 1 Bilirubin (mg/dL) < 1.2 0 [place] Coma Score 15 0 Level of Hypotension No Hypotension 0 Creatinine (mg/dL) 2.0 - 3.4 2 Total 3 Assessment & Plan Reason critically ill: 86 year old male transferred from [facility] with AMS and respiratory distress, consistent with pulmonary edema, requiring mechanical ventilation. Neuro - CAM ICU negative - Avoid benzos. - h/o CVA - monitor for facial changes/changes in mentation - Analgesia: Fentanyl 12.5mcg CV - Vitals 60-90, SBP 120-155 - hemodynamically stable - Echo: Mild concentric LV hypertrophy, EF 50-55%. Grade I diastolic dysfunction , with normal pressures. No significant valvular disease - CHF exacerbation: transition from IV to PO Lasix 40 mg daily. Commence metoprolol. - NSTEMI vs demand ischemia: troponin trending downwards. Continue aspirin Resp - Acute respiratory failure with hypoxia requiring ventilator support resolved - CXR: continued slight improvement in the right lung airspace opacities - Continue diuresing the patient with ongoing improvement in respiration GI/Nutrition - Diet: liquid diet - PPx: Famotidine q12h Renal/ - Known CKD, unsure of baseline creatinine, current creatinine 2.32 - Trend BMP - will replete K+ and PO4 today - Keep Abebe in today ID - No leukocytosis, afebrile, procalcitonin negative. Antibiotics not warranted currently - Monitor fever curve and keep low threshold to institute antibiotics if indicated Endo - No history of DM: Glucose checks per ICU protocol - Hypothyroid: Continue levothyroxine Heme - H/H stable. Platelets good. Caogs WNL MSK/Skin - Hand XR: mildly distracted fracture through the base of the first distal phalanx with intra-articular extension. Erosive change versus age indeterminant posttraumatic change involving the tuft of the third distal phalanx. Soft tissue edema is present throughout the hand. Osteopenia and arthritic change. Access/Line - PIV VTE Prophylaxis - SC heparin 5000 units q8h Resident Physician Supervision Note: I was present with Dr. Barry during the history and exam. I discussed the case with the resident and agree with the findings and plan as documented in the note. Any exceptions or clarifications are listed here: 86 year old male, transferred from [facility], admitted for AMS, developed respiratory distress requiring mechanical ventilation, consistent with pulmonary edema. 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 No evidence of seizures. EEG did not show seizures at [place] [facility] Pulmonary: Extubated on 02/13 CXR reviewed, continues to clear up Elevate head. Out of bed to chair Continue diuresis CVS: Diuresis with BID Lasix 40 mg, may decrease to Lasix 40 mg po daily now Troponin trending down, peaked at 0.431. Likely demand ischemia coupled with kidney failure ASA 81 mg daily Echo reviewed, EF seems preserved, no significant valvular disease, but has some LVH and diastolic disfunction. Add metoprolol 12.5 mg bid, uptitrate as tolerated Renal: Has known CKD, not sure of baseline creatinine Supplement K and phos Keep Abebe in for today Endo: Continue Synthroid ID: Procalcitonin 0.19 Low threshold to institute Abx, but for the time will hold off GI: Start oral diet Pepcid for GI bleeding prophylaxis DVT prophylaxis: SC heparin 5000 units q 8 h Critical care time spent with patient, reviewing the chart, greater than 25 minutes. Documented By: Avtar Waters MD Consults & Procedures Consultants: Critical care Procedures: Extubation Data Medications: Current Inpatient Medications Medications (Trade) Dose Ordered Sig/Casey Route Start Time Stop Time Status Last Admin Dose Admin Heparin Sodium (Porcine) (Heparin Sq 5000 Unit/0.5ml) 5,000 unit Q8 SQ 02/12/17 14:00 03/14/17 13:59 02/14/17 05:37 5,000 UNIT Levothyroxine Sodium (Synthroid Tab) 25 mcg DAILYBB PO 02/13/17 06:00 03/15/17 05:59 02/14/17 05:36 25 MCG Aspirin (Aspirin Chew) 81 mg DAILY PO 02/13/17 10:15 03/15/17 10:14 02/14/17 08:05 81 MG Famotidine 20 mg/ Syringe 5 ml @ 2.5 mls/min Q24H IV 02/14/17 11:00 03/16/17 10:59 Potassium Citrate (Urocit-K Tab) 20 meq TID PO 02/14/17 09:00 02/15/17 08:59 02/14/17 08:04 20 MEQ Potassium/ Phosphorus/Sodium (Phospha 250 Neutral 155-852-130 Mg) 2 tab QID PO 02/14/17 09:00 02/15/17 08:59 02/14/17 08:03 2 TAB Furosemide (Lasix Tab) 40 mg QAM PO 02/15/17 09:00 03/17/17 08:59 Vital Signs: Date Time Temp Pulse Resp B/P (MAP) Pulse Ox O2 Delivery O2 Flow Rate FiO2 02/14/17 09:00 36.8 71 23 91 Room Air 02/14/17 08:01 74 22 100/69 (79) 100 02/14/17 08:00 Room Air 02/14/17 08:00 Room Air 02/14/17 08:00 76 21 100 02/14/17 07:00 80 13 95 02/14/17 06:00 78 20 167/96 (119) 96 Room Air 02/14/17 04:00 37.2 89 20 149/75 (99) 97 Room Air 02/14/17 04:00 Room Air 02/14/17 02:00 81 14 139/65 (89) 95 Room Air 02/14/17 00:01 37.8 84 14 181/93 (122) 97 Room Air 02/13/17 23:59 Room Air 02/13/17 22:00 92 20 165/65 (98) 92 Nasal Cannula 2.0 02/13/17 20:00 Nasal Cannula 2.0 02/13/17 20:00 36.8 83 20 167/65 (99) 93 Nasal Cannula 2.0 02/13/17 18:00 80 16 111/83 (92) 93 Room Air 02/13/17 16:00 37.0 74 16 127/82 (97) 95 Room Air 02/13/17 16:00 95 Room Air 02/13/17 14:00 68 16 117/87 (97) 97 Nasal Cannula 2.0 02/13/17 12:00 100 Nasal Cannula 02/13/17 12:00 36.2 65 16 133/91 (105) 99 Nasal Cannula 2.0 Laboratory Results: Last 24 Hours Test 02/13/17 12:38 02/13/17 18:17 02/13/17 21:52 02/14/17 05:33 Bedside Glucose 74 mg/dl 88 mg/dl 75 mg/dl White Blood Count 8.60 K/uL Red Blood Count 4.16 M/uL Hemoglobin 12.8 g/dL Hematocrit 37.5 % Mean Corpuscular Volume 90.1 fL Mean Corpuscular Hemoglobin 30.8 pg Mean Corpuscular Hemoglobin Concent 34.1 g/dl Platelet Count 138 K/uL Mean Platelet Volume 11.0 fL Neutrophils (%) (Auto) 74.4 % Lymphocytes (%) (Auto) 13.7 % Monocytes (%) (Auto) 10.9 % Eosinophils (%) (Auto) 0.5 % Basophils (%) (Auto) 0.2 % Neutrophils # (Auto) 6.39 K/uL Lymphocytes # (Auto) 1.18 K/uL Monocytes # (Auto) 0.94 K/uL Eosinophils # (Auto) 0.04 K/uL Basophils # (Auto) 0.02 K/uL RDW Standard Deviation 49.1 fL RDW Coefficient of Variation 14.8 % Immature Granulocyte % (Auto) 0.3 % Immature Granulocyte # (Auto) 0.03 K/uL Sodium Level 139 mmol/L Potassium Level 3.1 mmol/L Chloride Level 105 mmol/L Carbon Dioxide Level 22 mmol/L Anion Gap 12.0 mmol/L Blood Urea Nitrogen 49 mg/dl Creatinine 2.32 mg/dl Est Creatinine Clear Calc Drug Dose 25.6 ml/min Estimated GFR () 28.0 Estimated GFR (Non- 24.2 BUN/Creatinine Ratio 21.2 Random Glucose 93 mg/dl Calcium Level 8.5 mg/dl Phosphorus Level 2.4 mg/dl Magnesium Level 2.1 mg/dl Total Bilirubin 1.1 mg/dl Aspartate Amino Transf (AST/SGOT) 34 U/L Alanine Aminotransferase (ALT/SGPT) 21 U/L Alkaline Phosphatase 78 U/L Troponin I 0.239 ng/ml Total Protein 6.6 gm/dl Albumin 3.5 gm/dl Globulin 3.1 gm/dl Albumin/Globulin Ratio 1.1 Resident Tracking Resident Involvement: Resident Care Provided Care Provided: Adult Hospital Medicine
[2017-02-14] MEDS: FAMOTIDINE IV INJ 20 MG in SYRINGE 3 ML IV SCH (11:03)
--- NOTE | 2017-02-14 12:56 | Hospitalist Progress Note ---
Hospitalist Progress Note Date of Service Feb 14, 2017. Subjective Pt evaluation today including: conversation w/ patient, physical exam, lab review, review of studies, review of inpatient medication list Voiding: sweeney catheter in place (draining clear/yellow urine ) Patient resting in bed. Alert. Slowly advancing diet per ICU physician. Patient denies any fever, chills, CP, palpitations, SOB,cough, abdominal pain, nausea, vomiting, diarrhea, muscle/joint pain, anxiety/depression. Medications Current Inpatient Medications Medications (Trade) Dose Ordered Sig/Casey Route Start Time Stop Time Status Last Admin Dose Admin Heparin Sodium (Porcine) (Heparin Sq 5000 Unit/0.5ml) 5,000 unit Q8 SQ 02/12/17 14:00 03/14/17 13:59 02/14/17 05:37 5,000 UNIT Levothyroxine Sodium (Synthroid Tab) 25 mcg DAILYBB PO 02/13/17 06:00 03/15/17 05:59 02/14/17 05:36 25 MCG Aspirin (Aspirin Chew) 81 mg DAILY PO 02/13/17 10:15 03/15/17 10:14 02/14/17 08:05 81 MG Famotidine 20 mg/ Syringe 5 ml @ 2.5 mls/min Q24H IV 02/14/17 11:00 03/16/17 10:59 02/14/17 11:03 2.5 MLS/MIN Potassium Citrate (Urocit-K Tab) 20 meq TID PO 02/14/17 09:00 02/15/17 08:59 02/14/17 08:04 20 MEQ Potassium/ Phosphorus/Sodium (Phospha 250 Neutral 155-852-130 Mg) 2 tab QID PO 02/14/17 09:00 02/15/17 08:59 02/14/17 12:12 2 TAB Furosemide (Lasix Tab) 40 mg QAM PO 02/15/17 09:00 03/17/17 08:59 Metoprolol Tartrate (Lopressor Tab) 12.5 mg BID PO 02/14/17 21:00 03/16/17 20:59 Objective Vital Signs Date Time Temp Pulse Resp B/P (MAP) Pulse Ox O2 Delivery O2 Flow Rate FiO2 02/14/17 11:19 Room Air 02/14/17 11:07 36.8 80 20 131/97 (108) 94 Room Air 02/14/17 10:30 75 10 95 02/14/17 10:01 72 21 112/79 (90) 98 02/14/17 09:30 93 21 02/14/17 09:00 36.8 71 23 91 Room Air 02/14/17 08:01 74 22 100/69 (79) 100 02/14/17 08:00 Room Air 02/14/17 08:00 Room Air 02/14/17 08:00 76 21 100 02/14/17 07:00 80 13 95 02/14/17 06:00 78 20 167/96 (119) 96 Room Air 02/14/17 04:00 37.2 89 20 149/75 (99) 97 Room Air 02/14/17 04:00 Room Air 02/14/17 02:00 81 14 139/65 (89) 95 Room Air 02/14/17 00:01 37.8 84 14 181/93 (122) 97 Room Air 02/13/17 23:59 Room Air 02/13/17 22:00 92 20 165/65 (98) 92 Nasal Cannula 2.0 02/13/17 20:00 Nasal Cannula 2.0 02/13/17 20:00 36.8 83 20 167/65 (99) 93 Nasal Cannula 2.0 02/13/17 18:00 80 16 111/83 (92) 93 Room Air 02/13/17 16:00 37.0 74 16 127/82 (97) 95 Room Air 02/13/17 16:00 95 Room Air 02/13/17 14:00 68 16 117/87 (97) 97 Nasal Cannula 2.0 Physical Exam General Appearance: no apparent distress Eyes: PERRL ENT: hearing grossly normal Neck: supple Respiratory/Chest: + decreased breath sounds, + crackles (bilateral lung bases ) Cardiovascular: regular rate, rhythm Abdomen: normal bowel sounds, non tender, soft Extremities: + swelling (+1 pitting edema to bilateral lower extremities ), + pertinent finding (SCDs on ) Neurologic/Psychiatric: alert Skin: normal color, warm/dry, no rash Laboratory Results Last 24 Hours Test 02/13/17 18:17 02/13/17 21:52 02/14/17 05:33 Bedside Glucose 88 mg/dl 75 mg/dl White Blood Count 8.60 K/uL Red Blood Count 4.16 M/uL Hemoglobin 12.8 g/dL Hematocrit 37.5 % Mean Corpuscular Volume 90.1 fL Mean Corpuscular Hemoglobin 30.8 pg Mean Corpuscular Hemoglobin Concent 34.1 g/dl Platelet Count 138 K/uL Mean Platelet Volume 11.0 fL Neutrophils (%) (Auto) 74.4 % Lymphocytes (%) (Auto) 13.7 % Monocytes (%) (Auto) 10.9 % Eosinophils (%) (Auto) 0.5 % Basophils (%) (Auto) 0.2 % Neutrophils # (Auto) 6.39 K/uL Lymphocytes # (Auto) 1.18 K/uL Monocytes # (Auto) 0.94 K/uL Eosinophils # (Auto) 0.04 K/uL Basophils # (Auto) 0.02 K/uL RDW Standard Deviation 49.1 fL RDW Coefficient of Variation 14.8 % Immature Granulocyte % (Auto) 0.3 % Immature Granulocyte # (Auto) 0.03 K/uL Sodium Level 139 mmol/L Potassium Level 3.1 mmol/L Chloride Level 105 mmol/L Carbon Dioxide Level 22 mmol/L Anion Gap 12.0 mmol/L Blood Urea Nitrogen 49 mg/dl Creatinine 2.32 mg/dl Est Creatinine Clear Calc Drug Dose 25.6 ml/min Estimated GFR () 28.0 Estimated GFR (Non- 24.2 BUN/Creatinine Ratio 21.2 Random Glucose 93 mg/dl Calcium Level 8.5 mg/dl Phosphorus Level 2.4 mg/dl Magnesium Level 2.1 mg/dl Total Bilirubin 1.1 mg/dl Aspartate Amino Transf (AST/SGOT) 34 U/L Alanine Aminotransferase (ALT/SGPT) 21 U/L Alkaline Phosphatase 78 U/L Troponin I 0.239 ng/ml Total Protein 6.6 gm/dl Albumin 3.5 gm/dl Globulin 3.1 gm/dl Albumin/Globulin Ratio 1.1 Assessment and Plan Patient is an 86 y/o male, with PMHx of HTN, COPD, cardiac arrhythmia, hypothyroidism, abdominal aneurysm, CKD, h/o TIA/CVA, and GERD, who was a direct transfer from [facility] because of altered mental status, complicated by respiratory distress requiring ventilation. 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: - Admitted to ICU - Intubated- sedation w/ Precedex; Extubated on 02/13, now on RA - IV Lasix 40 mg BID- transitioned to PO 40 mg daily - Sweeney placed- monitor I&Os and daily weights - ECHO- mild LVH, systolic function normal, grade I diastolic dysfunction, right ventricular systolic pressure is normal Elevated trop, likely secondary to demand ischemia: - Cardiac monitoring - Trend cardiac enzymes- peak trop 0.431 - ASA 81 mg daily - Started Metoprolol 12.5 mg BID Hypokalemia: Replacing with PO KCL supplement, follow PRP and replace PRN Hypophosphatemia: Continue Phosphate supplement CKD- unknown baseline kidney function- STABLE: Slight increase in Cr.- transitioned to PO Lasix- follow PRP Mildly distracted fracture through the base of the first distal phalanx with intra-articular extension Hypothyroidism- TSH 3.060: Continue Synthroid 25 mcg daily h/o TIA/CVA: Started ASA 81 mg daily Abdominal aneurysm: No surgical intervention desired GI prophylaxis: IV Pepcid DVT prophylaxis: Heparin SQ TID Code Status: FULL, NO MECHANICAL VENTILATION Dispo: From home, lives w/ daughter- CM and PT/OT consulted
[2017-02-14] MEDS ORDERED: METOPROLOL TARTRATE 25 MG TAB PO ONE (13:30)
[2017-02-14] MEDS: METOPROLOL TARTRATE 25 MG TAB PO SCH (20:06)
[2017-02-15] VITALS (10 sets, daily range): BP systolic 97–164; BP diastolic 54–105; PULSE 59–84; TEMP 36.5–37; O2SAT 92–100
[2017-02-15 05:49] LABS: HEMATOCRIT 38.9 % (42-52); MEAN CELL VOLUME 90.5 fL (80-100); MEAN CORPUSCULAR HEMOGLOBIN 31.2 pg (25-34); MEAN CORPUSCULAR HGB CONC 34.4 g/dl (32-36); MEAN PLATELET VOLUME 10.4 fL (7.4-10.4); PLATELET COUNT 146 K/uL (130-400); WHITE BLOOD COUNT 8.89 K/uL (4.8-10.8)
[2017-02-15] MEDS: LEVOTHYROXINE 25 MCG TAB PO SCH (05:51)
[2017-02-15] MEDS: HEPARIN SOD 5000 UNIT/0.5 ML CARP SQ SCH ×3 (05:52→20:09)
[2017-02-15 06:22] LABS: BUN/CREATININE RATIO 21.8 (10-20); CALCIUM 8.3 mg/dl (8.5-10.1); CREATININE 2.35 mg/dl (0.60-1.40); MAGNESIUM 2.2 mg/dl (1.8-2.4); POTASSIUM 3.3 mmol/L (3.5-5.1)
[2017-02-15 06:27] LABS: PHOSPHORUS 4.8 mg/dl (2.5-4.9)
[2017-02-15] MEDS: FUROSEMIDE 40 MG TAB PO SCH (08:09)
[2017-02-15] MEDS: POTASSIUM CHLORIDE 20 MEQ TABCR PO SCH ×2 (08:09→20:06)
[2017-02-15] MEDS: METOPROLOL TARTRATE 25 MG TAB PO SCH ×2 (08:10→20:05)
[2017-02-15] MEDS: ASPIRIN 81 MG CHEW PO SCH (08:25)
--- NOTE | 2017-02-15 09:57 | Critical Care Progress Note ---
Critical Care Progress Note Date of Service Feb 15, 2017. ICU Day ICU Day Number: [address] Waters Subjective Patient well, denies acute overnight events. Is pleasantly disoriented. Denies issues with chest pain, dyspnea or palpitations. Tolerating diet without N/V or abdominal pain. Says he had no issues with sleep. Abebe in situ. Has not had a BM yet, but denies feeling constipated. Objective GENERAL: alert, well appearing, sitting out of bed, no acute distress, non- toxic HEAD: NC/AT EYES: Normal sclera and conjunctiva OROPHARYNX: No exudate, no erythema. Lips, buccal mucosa, and tongue normal and mucous membranes are dry NECK: Supple, no adenopathy LUNGS: Normal chest wall mechanics, Course breath sounds, diminished sounds and diffuse crackles bibasilarly. No wheezes HEART: RRR, S1 and S2 normal, no murmurs appreciated ABDOMEN: Soft, non-tender, normo-active bowel sounds, no masses, no rebound or guarding. SKIN: Warm, pink, dry. No erythema, rashes, or bruising. EXTREMITIES: Grossly normal. Moving all 4 limbs. 1+ pitting edema - although skin less tense. Calves supple. SCDs on NEURO: Alert. Oriented to person only. No focal deficits. Cranial nerves II-XII grossly intact Current SOFA Score SOFA Score Response (Comments) Value Platelets (x10) < 150 1 Bilirubin (mg/dL) < 1.2 0 [place] Coma Score 15 0 Level of Hypotension No Hypotension 0 Creatinine (mg/dL) 2.0 - 3.4 2 Total 3 Assessment & Plan Reason critically ill: 86 year old male transferred from [facility] with AMS and respiratory distress, consistent with pulmonary edema, requiring mechanical ventilation. Neuro - CAM ICU negative - Avoid benzos. - h/o CVA - monitor for facial changes/changes in mentation - Analgesia: Fentanyl 12.5mcg PRN CV - Vitals 60-90, SBP 120-160 - hemodynamically stable - Echo: Mild concentric LV hypertrophy, EF 50-55%. Grade I diastolic dysfunction , with normal pressures. No significant valvular disease - CHF exacerbation: continue PO Lasix 40 mg daily and metoprolol. - NSTEMI vs demand ischemia: troponin trending downwards. Continue aspirin Resp - Acute respiratory failure with hypoxia requiring ventilator support resolved - Continue diuresing the patient with ongoing improvement in respiration GI/Nutrition - Diet: AHA diet - PPx: Famotidine q12h Renal/ - Known CKD, unsure of baseline creatinine, current creatinine 2.35 - Trend BMP - will replete K+ today - D/C Abebe in today ID - No leukocytosis, afebrile, procalcitonin negative. Antibiotics not warranted currently - Monitor fever curve and keep low threshold to institute antibiotics if indicated Endo - No history of DM: Glucose checks per ICU protocol - Hypothyroid: Continue levothyroxine Heme - H/H stable. Platelets good. Caogs WNL MSK/Skin - Splint on right hand for mildly distracted fracture through the base of the first distal phalanx with intra-articular extension and posttraumatic change involving the tuft of the third distal phalanx Access/Line - PIV VTE Prophylaxis - SC heparin 5000 units q8h Resident Physician Supervision Note: I was present with Dr. Barry during the history and exam. I discussed the case with the resident and agree with the findings and plan as documented in the note. Any exceptions or clarifications are listed here: 86 year old male, transferred from [facility], admitted for AMS, developed respiratory distress requiring mechanical ventilation, consistent with pulmonary edema. 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 No evidence of seizures. EEG did not show seizures at [place] [facility] Pulmonary: Extubated on 02/13 CXR reviewed, continues to clear up Elevate head. Out of bed to chair Continue diuresis CVS: Diuresis with Lasix 40 mg po daily now, still achieving a negative balance Troponin trending down, peaked at 0.431. Likely demand ischemia coupled with kidney failure ASA 81 mg daily Echo reviewed, EF seems preserved, no significant valvular disease, but has some LVH and diastolic disfunction. Metoprolol increased to 25 mg bid Renal: Has known CKD, not sure of baseline creatinine Supplement K May discontinue Abebe Endo: Continue Synthroid ID: Procalcitonin 0.19 Doubt pneumonic process, CXR clearing up without any antibiotic treatment GI: Tolerating oral diet Pepcid for GI bleeding prophylaxis Musculoskeletal: Hand xray showing fracture of first phalanx. Splint applied. Consider ortho consult DVT prophylaxis: SC heparin 5000 units q 8 h Critical care time spent with patient, reviewing the chart, greater than 25 minutes. At this point the patient is stable for transfer to monitored floor Documented By: Avtar Waters MD Consults & Procedures Consultants: Critical care Procedures: Extubation Data Medications: Current Inpatient Medications Medications (Trade) Dose Ordered Sig/Casey Route Start Time Stop Time Status Last Admin Dose Admin Heparin Sodium (Porcine) (Heparin Sq 5000 Unit/0.5ml) 5,000 unit Q8 SQ 02/12/17 14:00 03/14/17 13:59 02/15/17 05:52 5,000 UNIT Levothyroxine Sodium (Synthroid Tab) 25 mcg DAILYBB PO 02/13/17 06:00 03/15/17 05:59 02/15/17 05:51 25 MCG Aspirin (Aspirin Chew) 81 mg DAILY PO 02/13/17 10:15 03/15/17 10:14 02/15/17 08:25 81 MG Famotidine 20 mg/ Syringe 5 ml @ 2.5 mls/min Q24H IV 02/14/17 11:00 03/16/17 10:59 02/14/17 11:03 2.5 MLS/MIN Furosemide (Lasix Tab) 40 mg QAM PO 02/15/17 09:00 03/17/17 08:59 02/15/17 08:09 40 MG Metoprolol Tartrate (Lopressor Tab) 12.5 mg BID PO 02/14/17 21:00 03/16/17 20:59 02/15/17 08:10 12.5 MG Potassium Chloride (Klor-Con Tab) 20 meq BID PO 02/15/17 09:00 02/18/17 08:59 02/15/17 08:09 20 MEQ Vital Signs: Date Time Temp Pulse Resp B/P (MAP) Pulse Ox O2 Delivery O2 Flow Rate FiO2 02/15/17 08:00 Room Air 02/15/17 08:00 36.8 75 21 163/91 (115) 100 Room Air 02/15/17 06:00 36.8 74 23 146/105 (119) 97 Room Air 02/15/17 04:00 36.7 75 14 160/72 (101) 94 Room Air 02/15/17 04:00 94 Room Air 02/15/17 02:00 84 16 157/79 (105) 95 Room Air 02/15/17 00:00 36.7 68 14 97/70 (79) 95 Room Air 02/15/17 00:00 95 Room Air 02/14/17 23:00 83 163/92 (115) 02/14/17 22:00 79 24 189/90 (123) 96 Room Air 02/14/17 20:00 36.7 86 19 126/82 (97) 94 Room Air 02/14/17 20:00 95 Room Air 02/14/17 18:01 70 19 126/83 (97) 97 Room Air 02/14/17 17:30 74 22 96 02/14/17 16:30 36.9 68 23 98 02/14/17 16:15 Room Air 02/14/17 16:00 63 13 145/106 (119) 96 Room Air 02/14/17 15:45 76 15 124/80 (95) 96 02/14/17 15:00 62 20 96 02/14/17 14:01 69 19 124/80 (95) 97 02/14/17 14:00 66 24 97 02/14/17 13:00 90 19 96 02/14/17 12:01 78 15 140/99 (113) 92 02/14/17 12:00 85 23 97 02/14/17 11:19 Room Air 02/14/17 11:07 36.8 80 20 131/97 (108) 94 Room Air 02/14/17 10:30 75 10 95 02/14/17 10:01 72 21 112/79 (90) 98 Laboratory Results: Last 24 Hours Test 02/14/17 21:26 02/15/17 05:38 02/15/17 05:42 Bedside Glucose 84 mg/dl 93 mg/dl White Blood Count 8.89 K/uL Red Blood Count 4.30 M/uL Hemoglobin 13.4 g/dL Hematocrit 38.9 % Mean Corpuscular Volume 90.5 fL Mean Corpuscular Hemoglobin 31.2 pg Mean Corpuscular Hemoglobin Concent 34.4 g/dl RDW Standard Deviation 49.4 fL RDW Coefficient of Variation 15.0 % Platelet Count 146 K/uL Mean Platelet Volume 10.4 fL Sodium Level 139 mmol/L Potassium Level 3.3 mmol/L Chloride Level 103 mmol/L Carbon Dioxide Level 24 mmol/L Anion Gap 12.0 mmol/L Blood Urea Nitrogen 51 mg/dl Creatinine 2.35 mg/dl Est Creatinine Clear Calc Drug Dose 25.3 ml/min Estimated GFR () 27.6 Estimated GFR (Non- 23.8 BUN/Creatinine Ratio 21.8 Random Glucose 100 mg/dl Calcium Level 8.3 mg/dl Phosphorus Level 4.8 mg/dl Magnesium Level 2.2 mg/dl Resident Tracking Resident Involvement: Resident Care Provided Care Provided: Adult Hospital Medicine
[2017-02-15] MEDS ORDERED: POLYETHYLENE (MIRALAX) 17 GM PACK PO PRN (10:45)
[2017-02-15] MEDS ORDERED: POLYETHYLENE (MIRALAX) 17 GM PACK PO ONE (11:00)
[2017-02-15] MEDS: FAMOTIDINE IV INJ 20 MG in SYRINGE 3 ML IV SCH (11:52)
--- NOTE | 2017-02-15 14:36 | Hospitalist Progress Note ---
Hospitalist Progress Note Date of Service Feb 15, 2017. Subjective Pt evaluation today including: conversation w/ patient, physical exam, lab review, review of inpatient medication list Patient sitting in wheelchair at bedside- transferring to tele Abebe removed. Denies chest pain, SOB, cough, abdominal pain, muscle/joint pain. Medications Current Inpatient Medications Medications (Trade) Dose Ordered Sig/Casey Route Start Time Stop Time Status Last Admin Dose Admin Heparin Sodium (Porcine) (Heparin Sq 5000 Unit/0.5ml) 5,000 unit Q8 SQ 02/12/17 14:00 03/14/17 13:59 02/15/17 14:12 5,000 UNIT Levothyroxine Sodium (Synthroid Tab) 25 mcg DAILYBB PO 02/13/17 06:00 03/15/17 05:59 02/15/17 05:51 25 MCG Aspirin (Aspirin Chew) 81 mg DAILY PO 02/13/17 10:15 03/15/17 10:14 02/15/17 08:25 81 MG Famotidine 20 mg/ Syringe 5 ml @ 2.5 mls/min Q24H IV 02/14/17 11:00 03/16/17 10:59 02/15/17 11:52 2.5 MLS/MIN Furosemide (Lasix Tab) 40 mg QAM PO 02/15/17 09:00 03/17/17 08:59 02/15/17 08:09 40 MG Metoprolol Tartrate (Lopressor Tab) 12.5 mg BID PO 02/14/17 21:00 03/16/17 20:59 02/15/17 08:10 12.5 MG Potassium Chloride (Klor-Con Tab) 20 meq BID PO 02/15/17 09:00 02/18/17 08:59 02/15/17 08:09 20 MEQ Polyethylene (Miralax Powder Packet) 17 gm DAILY PRN PO 02/15/17 10:45 03/17/17 10:44 Docusate Sodium (coLACE CAP) 100 mg BID PO 02/15/17 21:00 03/17/17 20:59 Objective Vital Signs Date Time Temp Pulse Resp B/P (MAP) Pulse Ox O2 Delivery O2 Flow Rate FiO2 02/15/17 12:00 Room Air 02/15/17 12:00 36.8 78 21 100/54 (69) 94 Room Air 02/15/17 10:00 68 14 150/87 (108) 96 Room Air 02/15/17 08:00 Room Air 02/15/17 08:00 36.8 75 21 163/91 (115) 100 Room Air 02/15/17 06:00 36.8 74 23 146/105 (119) 97 Room Air 02/15/17 04:00 36.7 75 14 160/72 (101) 94 Room Air 02/15/17 04:00 94 Room Air 02/15/17 02:00 84 16 157/79 (105) 95 Room Air 02/15/17 00:00 36.7 68 14 97/70 (79) 95 Room Air 02/15/17 00:00 95 Room Air 02/14/17 23:00 83 163/92 (115) 02/14/17 22:00 79 24 189/90 (123) 96 Room Air 02/14/17 20:00 36.7 86 19 126/82 (97) 94 Room Air 02/14/17 20:00 95 Room Air 02/14/17 18:01 70 19 126/83 (97) 97 Room Air 02/14/17 17:30 74 22 96 02/14/17 16:30 36.9 68 23 98 02/14/17 16:15 Room Air 02/14/17 16:00 63 13 145/106 (119) 96 Room Air 02/14/17 15:45 76 15 124/80 (95) 96 02/14/17 15:00 62 20 96 Physical Exam General Appearance: no apparent distress Eyes: PERRL ENT: hearing grossly normal Neck: supple Respiratory/Chest: no respiratory distress, no accessory muscle use, + decreased breath sounds (throughout- poor inspiratory effort ) Cardiovascular: regular rate, rhythm Abdomen: normal bowel sounds, non tender, soft Extremities: no calf tenderness, + swelling (trace pitting edema to bilateral lower extremities ) Neurologic/Psychiatric: alert, + disoriented Skin: normal color, warm/dry, no rash Laboratory Results Last 24 Hours Test 02/14/17 21:26 02/15/17 05:38 02/15/17 05:42 Bedside Glucose 84 mg/dl 93 mg/dl White Blood Count 8.89 K/uL Red Blood Count 4.30 M/uL Hemoglobin 13.4 g/dL Hematocrit 38.9 % Mean Corpuscular Volume 90.5 fL Mean Corpuscular Hemoglobin 31.2 pg Mean Corpuscular Hemoglobin Concent 34.4 g/dl RDW Standard Deviation 49.4 fL RDW Coefficient of Variation 15.0 % Platelet Count 146 K/uL Mean Platelet Volume 10.4 fL Sodium Level 139 mmol/L Potassium Level 3.3 mmol/L Chloride Level 103 mmol/L Carbon Dioxide Level 24 mmol/L Anion Gap 12.0 mmol/L Blood Urea Nitrogen 51 mg/dl Creatinine 2.35 mg/dl Est Creatinine Clear Calc Drug Dose 25.3 ml/min Estimated GFR () 27.6 Estimated GFR (Non- 23.8 BUN/Creatinine Ratio 21.8 Random Glucose 100 mg/dl Calcium Level 8.3 mg/dl Phosphorus Level 4.8 mg/dl Magnesium Level 2.2 mg/dl Assessment and Plan Patient is an 86 y/o male, with PMHx of HTN, COPD, cardiac arrhythmia, hypothyroidism, abdominal aneurysm, CKD, h/o TIA/CVA, and GERD, who was a direct transfer from [facility] because of altered mental status, complicated by respiratory distress requiring ventilation. Acute respiratory failure w/ hypoxia, acute diastolic CHF exacerbation- RESOLVING: - Admitted to ICU- transfer to [facility] on 02/15 - Intubated- sedation w/ Precedex; Extubated on 02/13, now on RA - IV Lasix 40 mg BID- transitioned to PO 40 mg daily - Abebe placed- monitor I&Os and daily weights - ECHO- mild LVH, systolic function normal, grade I diastolic dysfunction, right ventricular systolic pressure is normal Elevated trop, likely secondary to demand ischemia: - Cardiac monitoring - Trend cardiac enzymes- peak trop 0.431 - ASA 81 mg daily - Started Metoprolol 12.5 mg BID Hypokalemia: Replacing with PO KCL supplement, follow PRP and replace PRN Hypophosphatemia- RESOLVED: Replaced with PO phosphate supplement CKD- unknown baseline kidney function- STABLE: Follow PRP Mildly distracted fracture through the base of the first distal phalanx with intra-articular extension- Splint Hypothyroidism- TSH 3.060: Continue Synthroid 25 mcg daily h/o TIA/CVA: Started ASA 81 mg daily Abdominal aneurysm: No surgical intervention desired GI prophylaxis: IV Pepcid DVT prophylaxis: Heparin SQ TID Code Status: FULL, NO MECHANICAL VENTILATION Dispo: From home, lives w/ daughter- CM and PT/OT consulted
[2017-02-15] MEDS: DOCUSATE SODIUM 100 MG CAP PO SCH (20:06)
[2017-02-16] VITALS (10 sets, daily range): BP systolic 124–188; BP diastolic 78–98; PULSE 57–79; TEMP 36.4–37.5; O2SAT 94–98
[2017-02-16 06:15] LABS: BUN/CREATININE RATIO 24.4 (10-20); CALCIUM 8.1 mg/dl (8.5-10.1); CREATININE 2.35 mg/dl (0.60-1.40); POTASSIUM 3.5 mmol/L (3.5-5.1)
[2017-02-16] MEDS: LEVOTHYROXINE 25 MCG TAB PO SCH (06:27)
[2017-02-16] MEDS: HEPARIN SOD 5000 UNIT/0.5 ML CARP SQ SCH ×3 (06:29→21:21)
[2017-02-16] MEDS: DOCUSATE SODIUM 100 MG CAP PO SCH ×2 (07:48→21:20)
[2017-02-16] MEDS: METOPROLOL TARTRATE 25 MG TAB PO SCH ×2 (07:48→21:20)
[2017-02-16] MEDS: FUROSEMIDE 40 MG TAB PO SCH (07:48)
[2017-02-16] MEDS: ASPIRIN 81 MG CHEW PO SCH (08:36)
[2017-02-16] MEDS: POTASSIUM CHLORIDE 20 MEQ TABCR PO SCH ×2 (08:37→21:19)
[2017-02-16] MEDS: FAMOTIDINE IV INJ 20 MG in SYRINGE 3 ML IV SCH (11:56)
--- NOTE | 2017-02-16 14:58 | Progress Note ---
Subjective Date of Service: Feb 16, 2017. Subjective Pt evaluation today including: conversation w/ patient, physical exam, review of inpatient medication list Pain: no pain PO Intake: adequate Voiding: no voiding problems patient doing well, no new issues completed mini mental exam, did not perform well, will update daughter vitals and labs stable, transfer to the floor today Review of Systems Constitutional: + weakness, + fatigue All Other Systems: Reviewed and Negative Medications Current Inpatient Medications Medications (Trade) Dose Ordered Sig/Casey Route Start Time Stop Time Status Last Admin Dose Admin Heparin Sodium (Porcine) (Heparin Sq 5000 Unit/0.5ml) 5,000 unit Q8 SQ 02/12/17 14:00 03/14/17 13:59 02/16/17 13:59 5,000 UNIT Levothyroxine Sodium (Synthroid Tab) 25 mcg DAILYBB PO 02/13/17 06:00 03/15/17 05:59 02/16/17 06:27 25 MCG Aspirin (Aspirin Chew) 81 mg DAILY PO 02/13/17 10:15 03/15/17 10:14 02/16/17 08:36 81 MG Famotidine 20 mg/ Syringe 5 ml @ 2.5 mls/min Q24H IV 02/14/17 11:00 03/16/17 10:59 02/16/17 11:56 2.5 MLS/MIN Furosemide (Lasix Tab) 40 mg QAM PO 02/15/17 09:00 03/17/17 08:59 02/16/17 07:48 40 MG Metoprolol Tartrate (Lopressor Tab) 12.5 mg BID PO 02/14/17 21:00 03/16/17 20:59 02/16/17 07:48 12.5 MG Potassium Chloride (Klor-Con Tab) 20 meq BID PO 02/15/17 09:00 02/18/17 08:59 02/16/17 08:37 20 MEQ Polyethylene (Miralax Powder Packet) 17 gm DAILY PRN PO 02/15/17 10:45 03/17/17 10:44 Docusate Sodium (coLACE CAP) 100 mg BID PO 02/15/17 21:00 03/17/17 20:59 02/16/17 07:48 100 MG Objective Vital Signs Date Time Temp Pulse Resp B/P (MAP) Pulse Ox O2 Delivery O2 Flow Rate FiO2 02/16/17 12:00 Room Air 02/16/17 11:24 36.7 62 18 160/78 (105) 97 02/16/17 08:00 Room Air 02/16/17 07:48 36.8 79 18 143/98 (113) 98 02/16/17 04:04 37.5 57 17 124/80 (95) 95 Room Air 02/16/17 04:00 Room Air 02/16/17 00:02 Room Air 02/15/17 22:51 36.6 64 18 164/80 (108) 97 Room Air 02/15/17 20:00 Room Air 02/15/17 19:08 37.0 71 22 124/90 (101) 96 Room Air 02/15/17 16:00 Room Air 02/15/17 15:24 36.5 59 20 157/97 (117) 92 Room Air Physical Exam General Appearance: WD/WN, no apparent distress Eyes: normal inspection, EOMI, sclerae normal ENT: normal ENT inspection, hearing grossly normal, pharynx normal Neck: supple, no adenopathy, no JVD, trachea midline Respiratory/Chest: chest non-tender, lungs clear, normal breath sounds, no respiratory distress, no accessory muscle use Cardiovascular: regular rate, rhythm, no edema, no gallop, no JVD, no murmur Abdomen: normal bowel sounds, non tender, soft, no organomegaly Extremities: normal range of motion, non-tender, normal inspection, no pedal edema, no calf tenderness, pelvis stable Neurologic/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, alert, normal mood/affect, + motor weakness, + pertinent finding (oriented to person, place, not time) Skin: normal color, warm/dry, no rash Laboratory Results Last 24 Hours Test 02/16/17 05:17 Sodium Level 139 mmol/L Potassium Level 3.5 mmol/L Chloride Level 104 mmol/L Carbon Dioxide Level 25 mmol/L Anion Gap 10.0 mmol/L Blood Urea Nitrogen 57 mg/dl Creatinine 2.35 mg/dl Est Creatinine Clear Calc Drug Dose 25.3 ml/min Estimated GFR () 27.6 Estimated GFR (Non- 23.8 BUN/Creatinine Ratio 24.4 Random Glucose 100 mg/dl Calcium Level 8.1 mg/dl Assessment and Plan - Acute hypoxic respiratory failure secondary to acute diastolic heart failure acute hypoxia resolved, extubated in morning on 02/13 breathing well on room air, no distress, lungs clear - Demand ischemia: mild troponin elevation likely due to hypoxia, strain on heart no EKG changes echo without wall motion abnormalities continues to deny any chest pain or pressure now that he is awake - Acute diastolic HF: elevated BNP, grade I diastolic dysfunction on echo, preserved EF continue lasix 40mg PO daily, continues to examine euvolemic, weigh daily - CKD stage IV Cr 2.35 again today, remaining stable on Lasix - Hypokalemia: 3.5 today, continue 20mEq BID - Dementia: scored 15 on mini mental exam, even corrected for his education level (did not complete high school) this is moderate to severe highly functional according to daughter, he lives with her hesitant to add Aricept at age 86 with other comorbidities - Finger fracture: [facility] tomorrow about follow up transfer to medical floor today PT/OT anticipate him needing rehab/SNF
[2017-02-17] MEDS: HEPARIN SOD 5000 UNIT/0.5 ML CARP SQ SCH ×3 (06:20→20:37)
[2017-02-17] MEDS: LEVOTHYROXINE 25 MCG TAB PO SCH (06:22)
[2017-02-17 07:05] VITALS: BP 179/88; PULSE 61; TEMP 36.4; O2SAT 94
[2017-02-17 07:20] LABS: BUN/CREATININE RATIO 22.1 (10-20); CALCIUM 8.5 mg/dl (8.5-10.1); CREATININE 2.35 mg/dl (0.60-1.40)
[2017-02-17] MEDS: FUROSEMIDE 40 MG TAB PO SCH (08:46)
[2017-02-17] MEDS: METOPROLOL TARTRATE 25 MG TAB PO SCH ×2 (08:46→20:35)
[2017-02-17] MEDS: DOCUSATE SODIUM 100 MG CAP PO SCH ×2 (08:46→20:34)
[2017-02-17] MEDS: POTASSIUM CHLORIDE 20 MEQ TABCR PO SCH (08:47)
[2017-02-17] MEDS: ASPIRIN 81 MG CHEW PO SCH (08:51)
[2017-02-17] MEDS: FAMOTIDINE IV INJ 20 MG in SYRINGE 3 ML IV SCH (11:17)
[2017-02-17] MEDS ORDERED: LISINOPRIL 20 MG TAB PO ONE (11:45)
[2017-02-17 14:39] VITALS: BP 180/85; PULSE 58; TEMP 36.7; O2SAT 97
--- NOTE | 2017-02-17 15:11 | Progress Note ---
Subjective Date of Service: Feb 17, 2017. Subjective Pt evaluation today including: conversation w/ patient, conversation w/ family , physical exam, lab review, review of inpatient medication list Pain: no pain PO Intake: adequate Voiding: no voiding problems patient doing well, breathing well, no pain eating well, moved bowels yesterday BP elevated in 180's systolic, cannot titrate metoprolol up due to HR, will add Lisinopril Cr stable at 2.35 discussed discharge plans with patient's daughter she agrees to him going somewhere for rehab prior to going home CM can start to make arrangements tomorrow Review of Systems Constitutional: + weakness, + fatigue Neurologic: + memory loss All Other Systems: Reviewed and Negative Medications Current Inpatient Medications Medications (Trade) Dose Ordered Sig/Casey Route Start Time Stop Time Status Last Admin Dose Admin Heparin Sodium (Porcine) (Heparin Sq 5000 Unit/0.5ml) 5,000 unit Q8 SQ 02/12/17 14:00 03/14/17 13:59 02/17/17 13:34 5,000 UNIT Levothyroxine Sodium (Synthroid Tab) 25 mcg DAILYBB PO 02/13/17 06:00 03/15/17 05:59 02/17/17 06:22 25 MCG Aspirin (Aspirin Chew) 81 mg DAILY PO 02/13/17 10:15 03/15/17 10:14 02/17/17 08:51 81 MG Famotidine 20 mg/ Syringe 5 ml @ 2.5 mls/min Q24H IV 02/14/17 11:00 03/16/17 10:59 02/17/17 11:17 2.5 MLS/MIN Furosemide (Lasix Tab) 40 mg QAM PO 02/15/17 09:00 03/17/17 08:59 02/17/17 08:46 40 MG Metoprolol Tartrate (Lopressor Tab) 12.5 mg BID PO 02/14/17 21:00 03/16/17 20:59 02/17/17 08:46 12.5 MG Polyethylene (Miralax Powder Packet) 17 gm DAILY PRN PO 02/15/17 10:45 03/17/17 10:44 Docusate Sodium (coLACE CAP) 100 mg BID PO 02/15/17 21:00 03/17/17 20:59 02/17/17 08:46 100 MG Potassium Chloride (Klor-Con Tab) 20 meq DAILY PO 02/18/17 09:00 02/21/17 08:59 Lisinopril (Zestril Tab) 20 mg QAM PO 02/18/17 09:00 03/20/17 08:59 Objective Vital Signs Date Time Temp Pulse Resp B/P (MAP) Pulse Ox O2 Delivery O2 Flow Rate FiO2 02/17/17 14:39 36.7 58 20 180/85 (116) 97 Room Air 02/17/17 08:00 Room Air 02/17/17 07:05 36.4 61 20 179/88 (118) 94 02/17/17 04:05 Room Air 02/16/17 23:30 60 143/79 (100) 02/16/17 22:59 60 161/85 (110) 02/16/17 22:42 36.4 60 16 188/93 (124) 95 Room Air 02/16/17 21:18 63 185/86 (119) 02/16/17 20:05 Room Air 02/16/17 16:00 36.6 63 18 139/87 (104) 94 Room Air 02/16/17 16:00 Room Air 02/16/17 15:55 36.7 65 20 96 Physical Exam General Appearance: WD/WN, no apparent distress Eyes: normal inspection, EOMI, sclerae normal Neck: supple, no adenopathy, no JVD, trachea midline Respiratory/Chest: chest non-tender, lungs clear, normal breath sounds, no respiratory distress, no accessory muscle use Cardiovascular: regular rate, rhythm, no edema, no gallop, no JVD, no murmur Abdomen: normal bowel sounds, non tender, soft, no organomegaly Extremities: normal range of motion, non-tender, normal inspection, no pedal edema, no calf tenderness, pelvis stable Neurologic/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, alert, normal mood/affect, + abnormal gait (unsteady), + motor weakness (generalized), + pertinent finding ( oriented to person and place, not time) Skin: normal color, warm/dry, no rash Lymphatic: no adenopathy Laboratory Results Last 24 Hours Test 02/17/17 06:10 Sodium Level 138 mmol/L Potassium Level 4.0 mmol/L Chloride Level 105 mmol/L Carbon Dioxide Level 26 mmol/L Anion Gap 8.0 mmol/L Blood Urea Nitrogen 52 mg/dl Creatinine 2.35 mg/dl Est Creatinine Clear Calc Drug Dose 25.3 ml/min Estimated GFR () 27.6 Estimated GFR (Non- 23.8 BUN/Creatinine Ratio 22.1 Random Glucose 90 mg/dl Calcium Level 8.5 mg/dl Assessment and Plan - Acute hypoxic respiratory failure secondary to acute diastolic heart failure acute hypoxia resolved, extubated in morning on 02/13 breathing well on room air, no distress, lungs clear - Demand ischemia: mild troponin elevation likely due to hypoxia, strain on heart no EKG changes echo without wall motion abnormalities continues to deny any chest pain or pressure now that he is awake - Acute diastolic HF: elevated BNP, grade I diastolic dysfunction on echo, preserved EF continue lasix 40mg PO daily, continues to examine euvolemic, weigh daily - HTN: continue metoprolol 12.5mg BID, HR in 60's, no room to titrate upward add Lisinopril 20mg daily today, follow BP may need to increase to 40mg daily - CKD stage IV Cr 2.35 for several days, remaining stable on Lasix - Hypokalemia: 4.0 today, decrease KCl to 20mEq daily - Dementia: scored 15 on mini mental exam, even corrected for his education level (did not complete high school) this is moderate to severe highly functional according to daughter, he lives with her hesitant to add Aricept at age 86 with other comorbidities - Finger fracture: should call for orthopedic follow up 2 weeks after discharge , stent placed while in hospital PT/OT anticipate him needing rehab/SNF, daughter agrees with this plan CM should start process tomorrow, daughter would prefer [facility] since it is close to their home
--- NOTE | 2017-02-17 20:12 | Progress Note ---
Post ICU Progress Note Date & Time Feb 17, 2017 at 20:09 Vital Signs Vital Signs Past 12 Hours Date Time Temp Pulse Resp B/P (MAP) Pulse Ox O2 Delivery O2 Flow Rate FiO2 02/17/17 17:15 Room Air 02/17/17 14:39 36.7 58 20 180/85 (116) 97 Room Air Notes Mental Status: see Notes Nausea / Vomiting: adequately controlled Pain: adequately controlled Airway Patency, RR, SpO2: stable & adequate BP & HR: stable & adequate Patient initially admitted to the ICU from [facility] w/ concerns of respiratory failure and ??seizure activity versus encephalopathy requiring intubation. Remained intubated 24 hours with successful extubation. Has had continued improvement throughout stay. Sleeping on evaluation today. Per notes, plans for discharge to rehab facility p/t returning home. Consider outpatient follow up in 1 to 2 weeks with: Per admitting team. Repeat imaging needed: N/A Follow up cultures: None Reviewed progress notes, labs, and inpatient medication list Continue current management Additional recommendations: None at this time. Thank you for allowing us to participate in the care of this patient. At this time, Critical Care Services will sign off on this patient. Please feel free to reconsult as needed. Consults & Procedures Consultants: Critical care Procedures: Extubation
[2017-02-17 23:15] VITALS: BP 183/89; PULSE 63; TEMP 36.9; O2SAT 94
[2017-02-18] VITALS (7 sets, daily range): BP systolic 121–187; BP diastolic 66–100; PULSE 58–66; TEMP 36.4–36.8; O2SAT 95–97
[2017-02-18] MEDS: LEVOTHYROXINE 25 MCG TAB PO SCH (05:43)
[2017-02-18] MEDS: HEPARIN SOD 5000 UNIT/0.5 ML CARP SQ SCH ×3 (05:44→22:12)
[2017-02-18 06:57] LABS: HEMATOCRIT 39.5 % (42-52); MEAN CELL VOLUME 92.9 fL (80-100); MEAN CORPUSCULAR HEMOGLOBIN 31.5 pg (25-34); MEAN CORPUSCULAR HGB CONC 33.9 g/dl (32-36); MEAN PLATELET VOLUME 10.7 fL (7.4-10.4); PLATELET COUNT 138 K/uL (130-400); RED BLOOD COUNT 4.25 M/uL (4.7-6.1); WHITE BLOOD COUNT 7.35 K/uL (4.8-10.8)
[2017-02-18 07:31] LABS: BUN/CREATININE RATIO 23.4 (10-20); CALCIUM 8.8 mg/dl (8.5-10.1); CREATININE 2.18 mg/dl (0.60-1.40); POTASSIUM 4.2 mmol/L (3.5-5.1)
[2017-02-18] MEDS: DOCUSATE SODIUM 100 MG CAP PO SCH ×2 (07:57→22:11)
[2017-02-18] MEDS: ASPIRIN 81 MG CHEW PO SCH (07:57)
[2017-02-18] MEDS: FUROSEMIDE 40 MG TAB PO SCH (07:58)
[2017-02-18] MEDS: METOPROLOL TARTRATE 25 MG TAB PO SCH ×2 (07:58→21:00)
[2017-02-18] MEDS: LISINOPRIL 20 MG TAB PO SCH (07:58)
[2017-02-18] MEDS: POTASSIUM CHLORIDE 20 MEQ TABCR PO SCH (07:58)
[2017-02-18] MEDS: FAMOTIDINE IV INJ 20 MG in SYRINGE 3 ML IV SCH (11:19)
--- NOTE | 2017-02-18 14:25 | Progress Note ---
Subjective Date of Service: Feb 18, 2017. Subjective 86 year old male who today has no complaints. He requires rehab upon discharge. Awaiting referral to [facility]. Review of Systems Constitutional: No fever Respiratory: No cough, No sputum Cardiac: No chest pain, No orthopnea Abdomen: No pain, No nausea Musculoskeletal: No joint pain Psychiatric: No depression symptoms, No anhedonism Skin: No rash, No itch All Other Systems: Reviewed and Negative Medications Current Inpatient Medications Medications (Trade) Dose Ordered Sig/Casey Route Start Time Stop Time Status Last Admin Dose Admin Heparin Sodium (Porcine) (Heparin Sq 5000 Unit/0.5ml) 5,000 unit Q8 SQ 02/12/17 14:00 03/14/17 13:59 02/19/17 05:58 5,000 UNIT Levothyroxine Sodium (Synthroid Tab) 25 mcg DAILYBB PO 02/13/17 06:00 03/15/17 05:59 02/19/17 05:53 25 MCG Aspirin (Aspirin Chew) 81 mg DAILY PO 02/13/17 10:15 03/15/17 10:14 02/18/17 07:57 81 MG Famotidine 20 mg/ Syringe 5 ml @ 2.5 mls/min Q24H IV 02/14/17 11:00 03/16/17 10:59 02/18/17 11:19 2.5 MLS/MIN Furosemide (Lasix Tab) 40 mg QAM PO 02/15/17 09:00 03/17/17 08:59 02/18/17 07:58 40 MG Metoprolol Tartrate (Lopressor Tab) 12.5 mg BID PO 02/14/17 21:00 03/16/17 20:59 02/18/17 07:58 12.5 MG Polyethylene (Miralax Powder Packet) 17 gm DAILY PRN PO 02/15/17 10:45 03/17/17 10:44 Docusate Sodium (coLACE CAP) 100 mg BID PO 02/15/17 21:00 03/17/17 20:59 02/18/17 22:11 100 MG Potassium Chloride (Klor-Con Tab) 20 meq DAILY PO 02/18/17 09:00 02/21/17 08:59 02/18/17 07:58 20 MEQ Lisinopril (Zestril Tab) 20 mg QAM PO 02/18/17 09:00 03/20/17 08:59 02/18/17 07:58 20 MG Objective Vital Signs Date Time Temp Pulse Resp B/P (MAP) Pulse Ox O2 Delivery O2 Flow Rate FiO2 02/18/17 13:54 36.6 66 20 155/66 (95) 96 Room Air 02/18/17 07:40 Room Air 02/18/17 07:35 36.8 60 22 181/91 (121) 97 Room Air 02/18/17 03:10 62 164/78 (106) 02/18/17 00:05 Room Air 02/18/17 00:02 63 187/100 (129) 02/17/17 23:15 36.9 63 16 183/89 (120) 94 Room Air 02/17/17 20:05 Room Air 02/17/17 17:15 Room Air 02/17/17 14:39 36.7 58 20 180/85 (116) 97 Room Air Physical Exam Comments: General Appearance: WD/WN, no apparent distress Eyes: normal inspection, EOMI, sclerae normal Neck: supple, no adenopathy, no JVD, trachea midline Respiratory/Chest: chest non-tender, lungs clear, normal breath sounds, no respiratory distress, no accessory muscle use Cardiovascular: regular rate, rhythm, no edema, no gallop, no JVD, no murmur Abdomen: normal bowel sounds, non tender, soft, no organomegaly Extremities: normal range of motion, non-tender, normal inspection, no pedal edema, no calf tenderness, pelvis stable 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, alert, normal mood/affect, + abnormal gait (unsteady), + motor weakness (generalized), + pertinent finding ( oriented to person and place, not time) Skin: normal color, warm/dry, no rash Lymphatic: no adenopathy Laboratory Results Last 24 Hours Test 02/18/17 06:44 White Blood Count 7.35 K/uL Red Blood Count 4.25 M/uL Hemoglobin 13.4 g/dL Hematocrit 39.5 % Mean Corpuscular Volume 92.9 fL Mean Corpuscular Hemoglobin 31.5 pg Mean Corpuscular Hemoglobin Concent 33.9 g/dl RDW Standard Deviation 50.2 fL RDW Coefficient of Variation 14.7 % Platelet Count 138 K/uL Mean Platelet Volume 10.7 fL Sodium Level 137 mmol/L Potassium Level 4.2 mmol/L Chloride Level 104 mmol/L Carbon Dioxide Level 26 mmol/L Anion Gap 7.0 mmol/L Blood Urea Nitrogen 51 mg/dl Creatinine 2.18 mg/dl Est Creatinine Clear Calc Drug Dose 27.2 ml/min Estimated GFR () 30.2 Estimated GFR (Non- 26.1 BUN/Creatinine Ratio 23.4 Random Glucose 90 mg/dl Calcium Level 8.8 mg/dl Assessment and Plan - Acute hypoxic respiratory failure secondary to acute diastolic heart failure acute hypoxia resolved, extubated in morning on 02/13 breathing well on room air, no distress, lungs clear - Demand ischemia: mild troponin elevation likely due to hypoxia, strain on heart no EKG changes echo without wall motion abnormalities continues to deny any chest pain or pressure now that he is awake - Acute diastolic HF: elevated BNP, grade I diastolic dysfunction on echo, preserved EF continue lasix 40mg PO daily, continues to examine euvolemic, weigh daily - HTN: continue metoprolol 12.5mg BID, HR in 60's, no room to titrate upward add Lisinopril 20mg daily today, follow BP may need to increase to 40mg daily - CKD stage IV Cr 2.35 for several days, remaining stable on Lasix - Hypokalemia: 4.0 today, decrease KCl to 20mEq daily - Dementia: scored 15 on mini mental exam, even corrected for his education level (did not complete high school) this is moderate to severe highly functional according to daughter, he lives with her hesitant to add Aricept at age 86 with other comorbidities - Finger fracture: should call for orthopedic follow up 1-2 weeks after discharge, stent placed while in hospital PT/OT anticipate him needing rehab/SNF, daughter agrees with this plan Daughter would prefer [facility] since it is close to their home
[2017-02-19] MEDS: LEVOTHYROXINE 25 MCG TAB PO SCH (05:53)
[2017-02-19] MEDS: HEPARIN SOD 5000 UNIT/0.5 ML CARP SQ SCH ×3 (05:58→21:10)
[2017-02-19 07:56] VITALS: BP 168/92; PULSE 66; TEMP 36.8; O2SAT 96
[2017-02-19 08:00] VITALS: O2SAT 96
[2017-02-19 09:27] LABS: BUN/CREATININE RATIO 22.9 (10-20); CALCIUM 8.7 mg/dl (8.5-10.1); CREATININE 2.42 mg/dl (0.60-1.40); POTASSIUM 3.8 mmol/L (3.5-5.1)
[2017-02-19] MEDS: ASPIRIN 81 MG CHEW PO SCH (12:24)
[2017-02-19] MEDS: DOCUSATE SODIUM 100 MG CAP PO SCH ×2 (12:25→21:08)
[2017-02-19] MEDS: POTASSIUM CHLORIDE 20 MEQ TABCR PO SCH (12:25)
[2017-02-19] MEDS: METOPROLOL TARTRATE 25 MG TAB PO SCH ×2 (12:26→21:08)
[2017-02-19] MEDS: FUROSEMIDE 40 MG TAB PO SCH (12:26)
[2017-02-19] MEDS: LISINOPRIL 20 MG TAB PO SCH (12:28)
[2017-02-19] MEDS: FAMOTIDINE IV INJ 20 MG in SYRINGE 3 ML IV SCH (13:16)
[2017-02-19 15:42] VITALS: BP 141/89; PULSE 63; TEMP 36.6; O2SAT 97
--- NOTE | 2017-02-19 22:50 | Progress Note ---
Subjective Date of Service: Feb 19, 2017. Subjective Pt evaluation today including: conversation w/ patient, physical exam 86 year old male who today has no complaints. He requires rehab upon discharge. Awaiting placement for nursing facility. Review of Systems Constitutional: No fever, No chills Respiratory: No cough, No sputum Abdomen: No pain, No nausea Musculoskeletal: No joint pain Neurologic: No memory loss, No paralysis Endo: No fatigue Skin: No rash, No itch All Other Systems: Reviewed and Negative Medications Current Inpatient Medications Medications (Trade) Dose Ordered Sig/Casey Route Start Time Stop Time Status Last Admin Dose Admin Heparin Sodium (Porcine) (Heparin Sq 5000 Unit/0.5ml) 5,000 unit Q8 SQ 02/12/17 14:00 03/14/17 13:59 02/20/17 05:46 5,000 UNIT Levothyroxine Sodium (Synthroid Tab) 25 mcg DAILYBB PO 02/13/17 06:00 03/15/17 05:59 02/20/17 05:49 25 MCG Aspirin (Aspirin Chew) 81 mg DAILY PO 02/13/17 10:15 03/15/17 10:14 02/20/17 08:30 81 MG Famotidine 20 mg/ Syringe 5 ml @ 2.5 mls/min Q24H IV 02/14/17 11:00 03/16/17 10:59 02/19/17 13:16 2.5 MLS/MIN Furosemide (Lasix Tab) 40 mg QAM PO 02/15/17 09:00 03/17/17 08:59 02/20/17 08:31 40 MG Metoprolol Tartrate (Lopressor Tab) 12.5 mg BID PO 02/14/17 21:00 03/16/17 20:59 02/20/17 08:31 12.5 MG Polyethylene (Miralax Powder Packet) 17 gm DAILY PRN PO 02/15/17 10:45 03/17/17 10:44 Docusate Sodium (coLACE CAP) 100 mg BID PO 02/15/17 21:00 03/17/17 20:59 02/20/17 08:30 100 MG Potassium Chloride (Klor-Con Tab) 20 meq DAILY PO 02/18/17 09:00 02/21/17 08:59 02/20/17 08:31 20 MEQ Lisinopril (Zestril Tab) 20 mg QAM PO 02/18/17 09:00 03/20/17 08:59 02/20/17 08:32 20 MG Objective Vital Signs Date Time Temp Pulse Resp B/P (MAP) Pulse Ox O2 Delivery O2 Flow Rate FiO2 02/19/17 16:10 Room Air 02/19/17 15:42 36.6 63 18 141/89 (106) 97 Room Air 02/19/17 08:00 96 Room Air 02/19/17 07:56 36.8 66 18 168/92 (117) 96 Room Air 02/19/17 00:00 Room Air 02/18/17 23:48 36.6 63 16 143/89 (107) 96 Room Air Physical Exam Comments: General Appearance: WD/WN, no apparent distress Eyes: normal inspection, EOMI, sclerae normal Neck: supple, no adenopathy, no JVD, trachea midline Respiratory/Chest: chest non-tender, lungs clear, normal breath sounds, no respiratory distress, no accessory muscle use Cardiovascular: regular rate, rhythm, no edema, no gallop, no JVD, no murmur Abdomen: normal bowel sounds, non tender, soft, no organomegaly Extremities: normal range of motion, non-tender, normal inspection, no pedal edema, no calf tenderness, pelvis stable 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, alert, normal mood/affect, + abnormal gait (unsteady), + motor weakness (generalized), + pertinent finding ( oriented to person and place, not time) Skin: normal color, warm/dry, no rash Lymphatic: no adenopathy Laboratory Results Last 24 Hours Test 02/19/17 08:24 Sodium Level 136 mmol/L Potassium Level 3.8 mmol/L Chloride Level 104 mmol/L Carbon Dioxide Level 24 mmol/L Anion Gap 9.0 mmol/L Blood Urea Nitrogen 55 mg/dl Creatinine 2.42 mg/dl Est Creatinine Clear Calc Drug Dose 24.5 ml/min Estimated GFR () 26.6 Estimated GFR (Non- 23.0 BUN/Creatinine Ratio 22.9 Random Glucose 115 mg/dl Calcium Level 8.7 mg/dl Assessment and Plan - Acute hypoxic respiratory failure secondary to acute diastolic heart failure acute hypoxia resolved, extubated in morning on 02/13 breathing well on room air, no distress, lungs clear - Demand ischemia: mild troponin elevation likely due to hypoxia, strain on heart no EKG changes echo without wall motion abnormalities continues to deny any chest pain or pressure now that he is awake - Acute diastolic HF: elevated BNP, grade I diastolic dysfunction on echo, preserved EF continue lasix 40mg PO daily, continues to examine euvolemic, weigh daily - HTN: continue metoprolol 12.5mg BID, HR in 60's, no room to titrate upward add Lisinopril 20mg daily today, follow BP may need to increase to 40mg daily - CKD stage IV Cr 2.35 for several days, remaining stable on Lasix - Hypokalemia: 4.3 today, on KCl to 20mEq daily - Dementia: scored 15 on mini mental exam, even corrected for his education level (did not complete high school) this is moderate to severe highly functional according to daughter, he lives with her hesitant to add Aricept at age 86 with other comorbidities - Finger fracture: should call for orthopedic follow up 1-2 weeks after discharge, stent placed while in hospital PT/OT anticipate him needing rehab/SNF, daughter agrees with this plan Daughter would prefer [facility] since it is close to their home
[2017-02-19 23:46] VITALS: BP 123/81; PULSE 57; TEMP 36.7; O2SAT 97
[2017-02-20] MEDS: HEPARIN SOD 5000 UNIT/0.5 ML CARP SQ SCH ×3 (05:46→22:16)
[2017-02-20] MEDS: LEVOTHYROXINE 25 MCG TAB PO SCH (05:49)
[2017-02-20 07:34] VITALS: BP 133/81; PULSE 71; TEMP 36.8; O2SAT 96
[2017-02-20 07:50] LABS: HEMATOCRIT 37.5 % (42-52); MEAN CELL VOLUME 92.6 fL (80-100); MEAN CORPUSCULAR HEMOGLOBIN 31.4 pg (25-34); MEAN CORPUSCULAR HGB CONC 33.9 g/dl (32-36); MEAN PLATELET VOLUME 10.7 fL (7.4-10.4); PLATELET COUNT 158 K/uL (130-400); RED BLOOD COUNT 4.05 M/uL (4.7-6.1)
[2017-02-20 08:26] LABS: BUN/CREATININE RATIO 23.8 (10-20); CALCIUM 8.9 mg/dl (8.5-10.1); CREATININE 2.25 mg/dl (0.60-1.40); POTASSIUM 4.3 mmol/L (3.5-5.1)
[2017-02-20 08:28] LABS: ALB/GLOB RATIO 1.2 (0.9-2)
[2017-02-20] MEDS: ASPIRIN 81 MG CHEW PO SCH (08:30)
[2017-02-20] MEDS: DOCUSATE SODIUM 100 MG CAP PO SCH ×2 (08:30→22:10)
[2017-02-20] MEDS: METOPROLOL TARTRATE 25 MG TAB PO SCH ×2 (08:31→21:17)
[2017-02-20] MEDS: POTASSIUM CHLORIDE 20 MEQ TABCR PO SCH (08:31)
[2017-02-20] MEDS: FUROSEMIDE 40 MG TAB PO SCH (08:31)
[2017-02-20] MEDS: LISINOPRIL 20 MG TAB PO SCH (08:32)
[2017-02-20 10:55] VITALS: BP_SYST 134; BP_SYST 167; BP_DIAS 90; BP_DIAS 94; PULSE 56; TEMP 36.7; O2SAT 97
[2017-02-20] MEDS: FAMOTIDINE IV INJ 20 MG in SYRINGE 3 ML IV SCH (11:08)
[2017-02-20 15:30] VITALS: O2SAT 97
[2017-02-20 15:38] VITALS: BP 137/76; PULSE 65; TEMP 36.6; O2SAT 96
--- NOTE | 2017-02-20 23:53 | Progress Note ---
Subjective Date of Service: Feb 20, 2017. Subjective 86 year old male with no new complaints today. ROS is below. Was called by nurse that his blood pressure was elevated. His left BP was 160/ 80 and his right was 130/70. Review of Systems Constitutional: No fever Respiratory: No cough, No sputum Cardiac: No chest pain, No orthopnea Abdomen: No pain, No nausea Musculoskeletal: No see HPI, No joint pain Psychiatric: No depression symptoms, No anhedonism Skin: No rash, No itch All Other Systems: Reviewed and Negative Medications Current Inpatient Medications Medications (Trade) Dose Ordered Sig/Casey Route Start Time Stop Time Status Last Admin Dose Admin Heparin Sodium (Porcine) (Heparin Sq 5000 Unit/0.5ml) 5,000 unit Q8 SQ 02/12/17 14:00 03/14/17 13:59 02/20/17 22:16 5,000 UNIT Levothyroxine Sodium (Synthroid Tab) 25 mcg DAILYBB PO 02/13/17 06:00 03/15/17 05:59 02/20/17 05:49 25 MCG Aspirin (Aspirin Chew) 81 mg DAILY PO 02/13/17 10:15 03/15/17 10:14 02/20/17 08:30 81 MG Famotidine 20 mg/ Syringe 5 ml @ 2.5 mls/min Q24H IV 02/14/17 11:00 03/16/17 10:59 02/20/17 11:08 2.5 MLS/MIN Furosemide (Lasix Tab) 40 mg QAM PO 02/15/17 09:00 03/17/17 08:59 02/20/17 08:31 40 MG Metoprolol Tartrate (Lopressor Tab) 12.5 mg BID PO 02/14/17 21:00 03/16/17 20:59 02/20/17 21:17 12.5 MG Polyethylene (Miralax Powder Packet) 17 gm DAILY PRN PO 02/15/17 10:45 03/17/17 10:44 Docusate Sodium (coLACE CAP) 100 mg BID PO 02/15/17 21:00 03/17/17 20:59 02/20/17 22:10 100 MG Potassium Chloride (Klor-Con Tab) 20 meq DAILY PO 02/18/17 09:00 02/21/17 08:59 02/20/17 08:31 20 MEQ Lisinopril (Zestril Tab) 20 mg QAM PO 02/18/17 09:00 03/20/17 08:59 02/20/17 08:32 20 MG Objective Vital Signs Date Time Temp Pulse Resp B/P (MAP) Pulse Ox O2 Delivery O2 Flow Rate FiO2 02/20/17 15:38 36.6 65 18 137/76 (96) 96 Room Air 02/20/17 15:30 97 Room Air 02/20/17 10:55 36.7 56 18 134/90 (105) 97 Room Air 167/94 (118) 02/20/17 08:45 Room Air 02/20/17 07:34 36.8 71 18 133/81 (98) 96 Room Air 02/20/17 00:00 Room Air Physical Exam Comments: General Appearance: WD/WN, no apparent distress Eyes: normal inspection, EOMI, sclerae normal Neck: supple, no adenopathy, no JVD, trachea midline Respiratory/Chest: chest non-tender, lungs clear, normal breath sounds, no respiratory distress, no accessory muscle use Cardiovascular: regular rate, rhythm, no edema, no gallop, no JVD, no murmur Abdomen: normal bowel sounds, non tender, soft, no organomegaly Extremities: normal range of motion, non-tender, normal inspection, no pedal edema, no calf tenderness, pelvis stable 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, alert, normal mood/affect, + abnormal gait (unsteady), + motor weakness (generalized), + pertinent finding ( oriented to person and place, not time) Skin: normal color, warm/dry, no rash Lymphatic: no adenopathy Laboratory Results Last 24 Hours Test 02/20/17 07:36 White Blood Count 7.80 K/uL Red Blood Count 4.05 M/uL Hemoglobin 12.7 g/dL Hematocrit 37.5 % Mean Corpuscular Volume 92.6 fL Mean Corpuscular Hemoglobin 31.4 pg Mean Corpuscular Hemoglobin Concent 33.9 g/dl RDW Standard Deviation 50.6 fL RDW Coefficient of Variation 14.9 % Platelet Count 158 K/uL Mean Platelet Volume 10.7 fL Sodium Level 137 mmol/L Potassium Level 4.3 mmol/L Chloride Level 106 mmol/L Carbon Dioxide Level 23 mmol/L Anion Gap 9.0 mmol/L Blood Urea Nitrogen 54 mg/dl Creatinine 2.25 mg/dl Est Creatinine Clear Calc Drug Dose 26.4 ml/min Estimated GFR () 29.1 Estimated GFR (Non- 25.1 BUN/Creatinine Ratio 23.8 Random Glucose 88 mg/dl Calcium Level 8.9 mg/dl Total Bilirubin 0.9 mg/dl Aspartate Amino Transf (AST/SGOT) 14 U/L Alanine Aminotransferase (ALT/SGPT) 23 U/L Alkaline Phosphatase 98 U/L Total Protein 6.7 gm/dl Albumin 3.6 gm/dl Globulin 3.1 gm/dl Albumin/Globulin Ratio 1.2 Assessment and Plan - Acute hypoxic respiratory failure secondary to acute diastolic heart failure in an 86 yo male acute hypoxia resolved, extubated in morning on 02/13 breathing well on room air, no distress, lungs clear - Discrepancy with left arm and right arm blood pressures SBP hasd more than 30 mmhg difference recommend outpatient workup: such as CT of chest with contrast to assess vasculature patient is asymptomatic. patient on beta alda and ASA. given age, unsure patient would be a candidate for aggressive treatment. - Demand ischemia: mild troponin elevation likely due to hypoxia, strain on heart no EKG changes echo without wall motion abnormalities continues to deny any chest pain or pressure now that he is awake - Acute diastolic HF: elevated BNP, grade I diastolic dysfunction on echo, preserved EF continue lasix 40mg PO daily, continues to examine euvolemic, weigh daily - HTN: continue metoprolol 12.5mg BID, HR in 60's, no room to titrate upward added Lisinopril 20mg daily today, follow BP may need to increase to 40mg daily or change time of medication such as HS. - CKD stage IV Cr 2.25 today, remaining stable on Lasix - Hypokalemia: 4.3 today, on KCl to 20mEq daily - Dementia: scored 15 on mini mental exam, even corrected for his education level (did not complete high school) this is moderate to severe highly functional according to daughter, he lives with her hesitant to add Aricept at age 86 with other comorbidities - Finger fracture: should call for orthopedic follow up 1-2 weeks after discharge, stent placed while in hospital PT/OT anticipate him needing rehab/SNF, daughter agrees with this plan Daughter would prefer [facility] since it is close to their home
[2017-02-21 01:14] VITALS: BP 139/70; PULSE 56; TEMP 36.6; O2SAT 96
[2017-02-21] MEDS: LEVOTHYROXINE 25 MCG TAB PO SCH (06:17)
[2017-02-21] MEDS: HEPARIN SOD 5000 UNIT/0.5 ML CARP SQ SCH ×3 (06:17→20:51)
[2017-02-21 06:23] LABS: HEMATOCRIT 37.4 % (42-52); MEAN CELL VOLUME 92.3 fL (80-100); MEAN CORPUSCULAR HEMOGLOBIN 31.4 pg (25-34); MEAN PLATELET VOLUME 10.7 fL (7.4-10.4); PLATELET COUNT 173 K/uL (130-400); RED BLOOD COUNT 4.05 M/uL (4.7-6.1); WHITE BLOOD COUNT 8.43 K/uL (4.8-10.8)
[2017-02-21 08:01] VITALS: BP 123/80; PULSE 57; TEMP 36.4; O2SAT 99
[2017-02-21] MEDS: LISINOPRIL 20 MG TAB PO SCH (08:52)
[2017-02-21] MEDS: DOCUSATE SODIUM 100 MG CAP PO SCH ×2 (08:53→20:40)
[2017-02-21] MEDS: FUROSEMIDE 40 MG TAB PO SCH (08:53)
[2017-02-21] MEDS: ASPIRIN 81 MG CHEW PO SCH (08:55)
[2017-02-21] MEDS: METOPROLOL TARTRATE 25 MG TAB PO SCH ×2 (09:01→20:40)
[2017-02-21] MEDS: FAMOTIDINE IV INJ 20 MG in SYRINGE 3 ML IV SCH (10:51)
--- NOTE | 2017-02-21 12:24 | Hospitalist Progress Note ---
Hospitalist Progress Note Date of Service Feb 21, 2017. Subjective Pt evaluation today including: conversation w/ patient, physical exam, chart review, lab review, review of inpatient medication list Voiding: no voiding problems Mr. Acosta is not a good historian however he says he feels well and has no complaints. ROS Constitutional: no chills, aches, sweats or fever Respiratory: no sob,cough, sputum, or wheezing Cardiac: no chest pain, palpitations, edema, orthopnea or lightheadedness GI: no abdominal pain, nausea, vomiting, diarrhea or constipation : no dysuria or hesitancy Extremities: no joint pain or weakness Skin: no rash All Other Systems: Reviewed and Negative Medications Medications Administered Medications (Trade) Dose Ordered Sig/Casey Route Start Time Stop Time Status Last Admin Dose Admin Perflutren Lipid Microsphere (Definity) 1 ml ONE ONCE IV 02/12/17 09:29 02/12/17 09:32 DC 02/12/17 09:32 1 ML Dexmedetomidine HCl 200 mcg/ Sodium Chloride 50 ml @ 0 mls/hr Q0M PRN IV 02/12/17 09:45 02/13/17 14:16 DC 02/13/17 04:43 14.7 MLS/HR Furosemide 40 mg/ Syringe 4 ml @ 4 mls/min BID IV 02/12/17 10:00 02/14/17 09:32 DC 02/14/17 08:05 4 MLS/MIN Aspirin (Aspirin Chew) 324 mg QD PO 02/12/17 10:15 02/13/17 08:34 DC 02/12/17 11:15 324 MG Heparin Sodium (Porcine) (Heparin Sq 5000 Unit/0.5ml) 5,000 unit Q8 SQ 02/12/17 14:00 03/14/17 13:59 02/21/17 06:17 5,000 UNIT Famotidine 20 mg/ Syringe 5 ml @ 2.5 mls/min Q12H IV 02/12/17 11:00 02/13/17 14:13 DC 02/13/17 12:18 2.5 MLS/MIN Potassium Chloride (Klor-Con Pwd) 40 meq ONE ONCE PO 02/12/17 12:00 02/12/17 12:01 DC 02/12/17 12:56 40 MEQ Levothyroxine Sodium (Synthroid Tab) 25 mcg DAILYBB PO 02/13/17 06:00 03/15/17 05:59 02/21/17 06:17 25 MCG Albumin Human (Albumin 25%) 12.5 gm ONE ONCE IV 02/12/17 20:45 02/12/17 20:55 DC 02/12/17 20:59 12.5 GM Fentanyl Citrate (Fentanyl Inj) 12.5 mcg NOW ONCE IV 02/13/17 01:30 02/13/17 01:44 DC 02/13/17 02:02 12.5 MCG Fentanyl Citrate (Fentanyl Inj) 12.5 mcg Q1H PRN IV 02/13/17 04:45 02/13/17 14:16 DC 02/13/17 05:09 12.5 MCG Potassium Chloride 10 meq/ Prmx 100 ml @ 100 mls/hr Q1H IV 02/13/17 08:45 02/13/17 10:44 DC 02/13/17 10:19 100 MLS/HR Aspirin (Aspirin Chew) 81 mg DAILY PO 02/13/17 10:15 03/15/17 10:14 02/21/17 08:55 81 MG Famotidine 20 mg/ Syringe 5 ml @ 2.5 mls/min Q24H IV 02/14/17 11:00 03/16/17 10:59 02/21/17 10:51 2.5 MLS/MIN Acetaminophen (Tylenol Tab) 650 mg NOW STAT PO 02/13/17 21:55 02/13/17 22:02 DC 02/13/17 22:35 650 MG Hydralazine HCl (HydrALAZINE INJ) 10 mg NOW STAT IV. 02/14/17 00:25 02/14/17 00:27 DC 02/14/17 00:55 10 MG Potassium Citrate (Urocit-K Tab) 20 meq TID PO 02/14/17 09:00 02/15/17 08:59 DC 02/14/17 20:07 20 MEQ Potassium/ Phosphorus/Sodium (Phospha 250 Neutral 155-852-130 Mg) 2 tab QID PO 02/14/17 09:00 02/15/17 08:59 DC 02/14/17 20:08 2 TAB Furosemide (Lasix Tab) 40 mg QAM PO 02/15/17 09:00 03/17/17 08:59 02/21/17 08:53 40 MG Metoprolol Tartrate (Lopressor Tab) 12.5 mg BID PO 02/14/17 21:00 03/16/17 20:59 02/21/17 09:01 12.5 MG Metoprolol Tartrate (Lopressor Tab) 25 mg 1330 ONCE PO 02/14/17 13:30 02/14/17 13:31 DC 02/14/17 13:22 25 MG Hydralazine HCl (HydrALAZINE INJ) 10 mg NOW STAT IV. 02/14/17 22:18 02/14/17 22:20 DC 02/14/17 22:38 10 MG Potassium Chloride (Klor-Con Tab) 20 meq BID PO 02/15/17 09:00 02/17/17 11:42 DC 02/17/17 08:47 20 MEQ Polyethylene (Miralax Powder Packet) 17 gm 1100 ONCE PO 02/15/17 11:00 02/15/17 11:01 DC 02/15/17 11:53 17 GM Docusate Sodium (coLACE CAP) 100 mg BID PO 02/15/17 21:00 03/17/17 20:59 02/21/17 08:53 100 MG Potassium Chloride (Klor-Con Tab) 20 meq DAILY PO 02/18/17 09:00 02/21/17 08:59 DC 02/20/17 08:31 20 MEQ Lisinopril (Zestril Tab) 20 mg QAM PO 02/18/17 09:00 03/20/17 08:59 02/21/17 08:52 20 MG Lisinopril (Zestril Tab) 20 mg NOW ONCE PO 02/17/17 11:45 02/17/17 12:04 DC 02/17/17 13:51 20 MG Objective Vital Signs Date Time Temp Pulse Resp B/P (MAP) Pulse Ox O2 Delivery O2 Flow Rate FiO2 02/21/17 08:01 36.4 57 18 123/80 (94) 99 Room Air 02/21/17 07:55 Room Air 02/21/17 01:14 36.6 56 20 139/70 (93) 96 Room Air 02/21/17 00:00 Room Air 02/20/17 15:38 36.6 65 18 137/76 (96) 96 Room Air 11/22/17 15:30 97 Room Air Physical Exam Notes: General: no distress Eyes: normal inspection, PERLL Respiratory: chest non tender, clear to auscultation, normal breath sounds, no respiratory distress, no accessory muscle use Cardiac: regular rate and rhythm, no rub or gallop, no murmur, no edema, no jvd GI/: active bowel sounds, no abd pain or tenderness, soft, non distended Extremities: normal range of motion, normal strength, non tender Neuro/Psych: alert and oriented x 1 to self, normal mood and affect Skin: normal color, dry, splint in place on right hand, right thumb mildly edematous and tender to palpation, immediate capillary refill in fingers Laboratory Results Last 24 Hours Test 02/21/17 06:07 White Blood Count 8.43 K/uL Red Blood Count 4.05 M/uL Hemoglobin 12.7 g/dL Hematocrit 37.4 % Mean Corpuscular Volume 92.3 fL Mean Corpuscular Hemoglobin 31.4 pg Mean Corpuscular Hemoglobin Concent 34.0 g/dl RDW Standard Deviation 50.7 fL RDW Coefficient of Variation 15.0 % Platelet Count 173 K/uL Mean Platelet Volume 10.7 fL Assessment and Plan Acute hypoxic respiratory failure secondary to acute diastolic heart failure in an 86 yo male Acute hypoxic respiratory failure secondary to acute diastolic heart failure - acute hypoxia resolved, extubated 02/13, on room air satting high 90s HTN - continue beta alda, ASA, lisinopril - blood pressures wnl Demand ischemia: mild troponin elevation likely due to hypoxia - no EKG changes - Troponins peaked at 0.43 and trended back down - echo without wall motion abnormalities - resolved Acute diastolic HF with preserved EF - continue lasix 40mg PO daily, daily weights CKD stage IV - creatinine stable - avoid nephrotoxic drugs Hypokalemia - resolved Dementia - scored 15 on mini mental exam, even corrected for his education level (did not complete high school) this is moderate to severe - will hold off on adding Aricept given age and condition - PT/OT Finger fracture - orthopedic follow up 1-2 weeks after discharge - splint/KAZ wrap Dispo: awaiting SNF placement
[2017-02-21 16:00] VITALS: O2SAT 99
[2017-02-21 16:14] VITALS: BP 141/84; PULSE 60; TEMP 36.3
[2017-02-22 00:23] VITALS: BP 121/69; PULSE 64; TEMP 36.8; O2SAT 97
[2017-02-22] MEDS: LEVOTHYROXINE 25 MCG TAB PO SCH (06:24)
[2017-02-22] MEDS: HEPARIN SOD 5000 UNIT/0.5 ML CARP SQ SCH ×3 (06:24→20:51)
[2017-02-22 07:57] VITALS: BP 186/86; PULSE 41; TEMP 36.5; O2SAT 98
[2017-02-22] MEDS: METOPROLOL TARTRATE 25 MG TAB PO SCH ×2 (08:01→20:53)
[2017-02-22] MEDS: ASPIRIN 81 MG CHEW PO SCH (08:01)
[2017-02-22] MEDS: LISINOPRIL 20 MG TAB PO SCH (08:01)
[2017-02-22] MEDS: FUROSEMIDE 40 MG TAB PO SCH (08:01)
[2017-02-22] MEDS: DOCUSATE SODIUM 100 MG CAP PO SCH ×2 (08:01→20:54)
[2017-02-22 09:19] LABS: CALCIUM 8.9 mg/dl (8.5-10.1); CREATININE 2.68 mg/dl (0.60-1.40); POTASSIUM 4.1 mmol/L (3.5-5.1)
[2017-02-22 09:29] VITALS: BP 135/72; PULSE 60
[2017-02-22] MEDS: FAMOTIDINE IV INJ 20 MG in SYRINGE 3 ML IV SCH (11:03)
--- NOTE | 2017-02-22 14:23 | Hospitalist Progress Note ---
Hospitalist Progress Note Date of Service Feb 22, 2017. Subjective Pt evaluation today including: conversation w/ patient, physical exam, chart review, lab review, review of inpatient medication list Mr. Barnard has no complaints this morning. Continues to be oriented to self only. ROS Constitutional: no chills, aches, sweats or fever Respiratory: no sob,cough, sputum, or wheezing Cardiac: no chest pain, palpitations, edema, orthopnea or lightheadedness GI: no abdominal pain, nausea, vomiting, diarrhea or constipation : no dysuria or hesitancy Extremities: no joint pain or weakness Skin: no rash All Other Systems: Reviewed and Negative Medications Medications Administered Medications (Trade) Dose Ordered Sig/Casey Route Start Time Stop Time Status Last Admin Dose Admin Perflutren Lipid Microsphere (Definity) 1 ml ONE ONCE IV 02/12/17 09:29 02/12/17 09:32 DC 02/12/17 09:32 1 ML Dexmedetomidine HCl 200 mcg/ Sodium Chloride 50 ml @ 0 mls/hr Q0M PRN IV 02/12/17 09:45 02/13/17 14:16 DC 02/13/17 04:43 14.7 MLS/HR Furosemide 40 mg/ Syringe 4 ml @ 4 mls/min BID IV 02/12/17 10:00 02/14/17 09:32 DC 02/14/17 08:05 4 MLS/MIN Aspirin (Aspirin Chew) 324 mg QD PO 02/12/17 10:15 02/13/17 08:34 DC 02/12/17 11:15 324 MG Heparin Sodium (Porcine) (Heparin Sq 5000 Unit/0.5ml) 5,000 unit Q8 SQ 02/12/17 14:00 03/14/17 13:59 02/22/17 13:40 5,000 UNIT Famotidine 20 mg/ Syringe 5 ml @ 2.5 mls/min Q12H IV 02/12/17 11:00 02/13/17 14:13 DC 02/13/17 12:18 2.5 MLS/MIN Potassium Chloride (Klor-Con Pwd) 40 meq ONE ONCE PO 02/12/17 12:00 02/12/17 12:01 DC 02/12/17 12:56 40 MEQ Levothyroxine Sodium (Synthroid Tab) 25 mcg DAILYBB PO 02/13/17 06:00 12/15/17 05:59 02/22/17 06:24 25 MCG Albumin Human (Albumin 25%) 12.5 gm ONE ONCE IV 02/12/17 20:45 02/12/17 20:55 DC 02/12/17 20:59 12.5 GM Fentanyl Citrate (Fentanyl Inj) 12.5 mcg NOW ONCE IV 02/13/17 01:30 02/13/17 01:44 DC 02/13/17 02:02 12.5 MCG Fentanyl Citrate (Fentanyl Inj) 12.5 mcg Q1H PRN IV 02/13/17 04:45 02/13/17 14:16 DC 02/13/17 05:09 12.5 MCG Potassium Chloride 10 meq/ Prmx 100 ml @ 100 mls/hr Q1H IV 02/13/17 08:45 02/13/17 10:44 DC 02/13/17 10:19 100 MLS/HR Aspirin (Aspirin Chew) 81 mg DAILY PO 02/13/17 10:15 03/15/17 10:14 02/22/17 08:01 81 MG Famotidine 20 mg/ Syringe 5 ml @ 2.5 mls/min Q24H IV 02/14/17 11:00 03/16/17 10:59 02/22/17 11:03 2.5 MLS/MIN Acetaminophen (Tylenol Tab) 650 mg NOW STAT PO 02/13/17 21:55 02/13/17 22:02 DC 02/13/17 22:35 650 MG Hydralazine HCl (HydrALAZINE INJ) 10 mg NOW STAT IV. 02/14/17 00:25 02/14/17 00:27 DC 02/14/17 00:55 10 MG Potassium Citrate (Urocit-K Tab) 20 meq TID PO 02/14/17 09:00 02/15/17 08:59 DC 02/14/17 20:07 20 MEQ Potassium/ Phosphorus/Sodium (Phospha 250 Neutral 155-852-130 Mg) 2 tab QID PO 02/14/17 09:00 02/15/17 08:59 DC 02/14/17 20:08 2 TAB Furosemide (Lasix Tab) 40 mg QAM PO 02/15/17 09:00 03/17/17 08:59 02/22/17 08:01 40 MG Metoprolol Tartrate (Lopressor Tab) 12.5 mg BID PO 02/14/17 21:00 03/16/17 20:59 02/22/17 08:01 12.5 MG Metoprolol Tartrate (Lopressor Tab) 25 mg 1330 ONCE PO 02/14/17 13:30 02/14/17 13:31 DC 02/14/17 13:22 25 MG Hydralazine HCl (HydrALAZINE INJ) 10 mg NOW STAT IV. 02/14/17 22:18 02/14/17 22:20 DC 02/14/17 22:38 10 MG Potassium Chloride (Klor-Con Tab) 20 meq BID PO 02/15/17 09:00 02/17/17 11:42 DC 02/17/17 08:47 20 MEQ Polyethylene (Miralax Powder Packet) 17 gm 1100 ONCE PO 02/15/17 11:00 02/15/17 11:01 DC 02/15/17 11:53 17 GM Docusate Sodium (coLACE CAP) 100 mg BID PO 02/15/17 21:00 03/17/17 20:59 02/22/17 08:01 100 MG Potassium Chloride (Klor-Con Tab) 20 meq DAILY PO 02/18/17 09:00 02/21/17 08:59 DC 02/20/17 08:31 20 MEQ Lisinopril (Zestril Tab) 20 mg QAM PO 02/18/17 09:00 03/20/17 08:59 02/22/17 08:01 20 MG Lisinopril (Zestril Tab) 20 mg NOW ONCE PO 02/17/17 11:45 02/17/17 12:04 DC 02/17/17 13:51 20 MG Objective Vital Signs Date Time Temp Pulse Resp B/P (MAP) Pulse Ox O2 Delivery O2 Flow Rate FiO2 02/22/17 09:29 60 135/72 (93) 02/22/17 08:15 Room Air 02/22/17 07:57 36.5 41 18 186/86 (119) 98 Room Air 02/22/17 00:23 36.8 64 18 121/69 (86) 97 Room Air 02/22/17 00:00 Room Air 02/21/17 16:14 36.3 60 18 141/84 (103) 02/21/17 16:00 99 Room Air Physical Exam Notes: General: no distress Eyes: normal inspection, PERLL Respiratory: chest non tender, clear to auscultation, normal breath sounds, no respiratory distress, no accessory muscle use Cardiac: regular rate and rhythm, no rub or gallop, no murmur, no edema, no jvd GI/: active bowel sounds, no abd pain or tenderness, soft, non distended Extremities: normal range of motion, normal strength, splint in place, right thumb tender and edematous with brisk cap refill Neuro/Psych: alert and oriented x 3, normal mood and affect Skin: normal color, dry Laboratory Results Last 24 Hours Test 02/22/17 08:36 Sodium Level 137 mmol/L Potassium Level 4.1 mmol/L Chloride Level 103 mmol/L Carbon Dioxide Level 26 mmol/L Anion Gap 8.0 mmol/L Blood Urea Nitrogen 56 mg/dl Creatinine 2.68 mg/dl Est Creatinine Clear Calc Drug Dose 22.2 ml/min Estimated GFR () 23.5 Estimated GFR (Non- 20.3 BUN/Creatinine Ratio 21.0 Random Glucose 95 mg/dl Calcium Level 8.9 mg/dl Assessment and Plan Acute hypoxic respiratory failure secondary to acute diastolic heart failure in an 86 yo male Acute hypoxic respiratory failure secondary to acute diastolic heart failure - acute hypoxia resolved, extubated 02/13, on room air satting high 90s HTN - continue beta alda, ASA, lisinopril - blood pressures wnl Demand ischemia: mild troponin elevation likely due to hypoxia - no EKG changes - Troponins peaked at 0.43 and trended back down - echo without wall motion abnormalities - resolved Acute diastolic HF with preserved EF - continue lasix 40mg PO daily, daily weights CKD stage IV - creatinine slighty elevated today at 2.6 - will check prp in am to trend - avoid nephrotoxic drugs Hypokalemia - resolved Dementia - scored 15 on mini mental exam, even corrected for his education level (did not complete high school) this is moderate to severe - will hold off on adding Aricept given age and condition - PT/OT Finger fracture - orthopedic follow up 1-2 weeks after discharge - splint/KAZ wrap Dispo: awaiting SNF placement
[2017-02-22 15:12] VITALS: BP 115/65; PULSE 61; TEMP 36.6; O2SAT 96
[2017-02-22 16:00] VITALS: O2SAT 96
[2017-02-23 00:16] VITALS: BP 149/82; PULSE 58; TEMP 36.3; O2SAT 98
[2017-02-23] MEDS: HEPARIN SOD 5000 UNIT/0.5 ML CARP SQ SCH ×3 (05:59→19:29)
[2017-02-23] MEDS: LEVOTHYROXINE 25 MCG TAB PO SCH (06:00)
[2017-02-23 07:12] LABS: BUN/CREATININE RATIO 21.2 (10-20); CALCIUM 8.5 mg/dl (8.5-10.1); CREATININE 2.76 mg/dl (0.60-1.40); POTASSIUM 4.2 mmol/L (3.5-5.1)
[2017-02-23] MEDS: DOCUSATE SODIUM 100 MG CAP PO SCH ×2 (07:40→19:25)
[2017-02-23] MEDS: LISINOPRIL 20 MG TAB PO SCH (07:40)
[2017-02-23] MEDS: ASPIRIN 81 MG CHEW PO SCH (07:40)
[2017-02-23] MEDS: METOPROLOL TARTRATE 25 MG TAB PO SCH ×2 (07:40→19:26)
[2017-02-23] MEDS: FUROSEMIDE 40 MG TAB PO SCH (07:40)
[2017-02-23] MEDS ORDERED: SODIUM CHLORIDE 0.9% 1000ML 1,000 ML IV SCH (08:15)
[2017-02-23 08:45] VITALS: BP 127/88; PULSE 62; TEMP 36.6; O2SAT 98
--- NOTE | 2017-02-23 09:42 | Hospitalist Progress Note ---
Hospitalist Progress Note Date of Service Feb 23, 2017. (Selina Carr CRNP) Subjective Pt evaluation today including: conversation w/ patient, physical exam, chart review, lab review, review of inpatient medication list Voiding: no voiding problems Mr. Barnard continues to be disoriented but calm and without complaints. ROS Constitutional: no chills, aches, sweats or fever Respiratory: no sob,cough, sputum, or wheezing Cardiac: no chest pain, palpitations, edema, orthopnea or lightheadedness GI: no abdominal pain, nausea, vomiting, diarrhea or constipation : no dysuria or hesitancy Extremities: tenderness right thumb Skin: no rash All Other Systems: Reviewed and Negative (Selina Carr CRNP) Medications Medications Administered Medications (Trade) Dose Ordered Sig/Casey Route Start Time Stop Time Status Last Admin Dose Admin Perflutren Lipid Microsphere (Definity) 1 ml ONE ONCE IV 02/12/17 09:29 02/12/17 09:32 DC 02/12/17 09:32 1 ML Dexmedetomidine HCl 200 mcg/ Sodium Chloride 50 ml @ 0 mls/hr Q0M PRN IV 02/12/17 09:45 02/13/17 14:16 DC 02/13/17 04:43 14.7 MLS/HR Furosemide 40 mg/ Syringe 4 ml @ 4 mls/min BID IV 02/12/17 10:00 02/14/17 09:32 DC 02/14/17 08:05 4 MLS/MIN Aspirin (Aspirin Chew) 324 mg QD PO 02/12/17 10:15 02/13/17 08:34 DC 02/12/17 11:15 324 MG Heparin Sodium (Porcine) (Heparin Sq 5000 Unit/0.5ml) 5,000 unit Q8 SQ 02/12/17 14:00 03/14/17 13:59 02/23/17 05:59 5,000 UNIT Famotidine 20 mg/ Syringe 5 ml @ 2.5 mls/min Q12H IV 02/12/17 11:00 02/13/17 14:13 DC 02/13/17 12:18 2.5 MLS/MIN Potassium Chloride (Klor-Con Pwd) 40 meq ONE ONCE PO 02/12/17 12:00 02/12/17 12:01 DC 02/12/17 12:56 40 MEQ Levothyroxine Sodium (Synthroid Tab) 25 mcg DAILYBB PO 02/13/17 06:00 03/15/17 05:59 02/23/17 06:00 25 MCG Albumin Human (Albumin 25%) 12.5 gm ONE ONCE IV 02/12/17 20:45 02/12/17 20:55 DC 02/12/17 20:59 12.5 GM Fentanyl Citrate (Fentanyl Inj) 12.5 mcg NOW ONCE IV 02/13/17 01:30 02/13/17 01:44 DC 02/13/17 02:02 12.5 MCG Fentanyl Citrate (Fentanyl Inj) 12.5 mcg Q1H PRN IV 02/13/17 04:45 02/13/17 14:16 DC 02/13/17 05:09 12.5 MCG Potassium Chloride 10 meq/ Prmx 100 ml @ 100 mls/hr Q1H IV 02/13/17 08:45 02/13/17 10:44 DC 02/13/17 10:19 100 MLS/HR Aspirin (Aspirin Chew) 81 mg DAILY PO 02/13/17 10:15 03/15/17 10:14 02/23/17 07:40 81 MG Famotidine 20 mg/ Syringe 5 ml @ 2.5 mls/min Q24H IV 02/14/17 11:00 03/16/17 10:59 02/22/17 11:03 2.5 MLS/MIN Acetaminophen (Tylenol Tab) 650 mg NOW STAT PO 02/13/17 21:55 02/13/17 22:02 DC 02/13/17 22:35 650 MG Hydralazine HCl (HydrALAZINE INJ) 10 mg NOW STAT IV. 02/14/17 00:25 02/14/17 00:27 DC 02/14/17 00:55 10 MG Potassium Citrate (Urocit-K Tab) 20 meq TID PO 02/14/17 09:00 02/15/17 08:59 DC 02/14/17 20:07 20 MEQ Potassium/ Phosphorus/Sodium (Phospha 250 Neutral 155-852-130 Mg) 2 tab QID PO 02/14/17 09:00 02/15/17 08:59 DC 02/14/17 20:08 2 TAB Furosemide (Lasix Tab) 40 mg QAM PO 02/15/17 09:00 03/17/17 08:59 Future Hold 02/23/17 07:40 40 MG Metoprolol Tartrate (Lopressor Tab) 12.5 mg BID PO 02/14/17 21:00 03/16/17 20:59 02/23/17 07:40 12.5 MG Metoprolol Tartrate (Lopressor Tab) 25 mg 1330 ONCE PO 02/14/17 13:30 02/14/17 13:31 DC 02/14/17 13:22 25 MG Hydralazine HCl (HydrALAZINE INJ) 10 mg NOW STAT IV. 02/14/17 22:18 02/14/17 22:20 DC 02/14/17 22:38 10 MG Potassium Chloride (Klor-Con Tab) 20 meq BID PO 02/15/17 09:00 02/17/17 11:42 DC 02/17/17 08:47 20 MEQ Polyethylene (Miralax Powder Packet) 17 gm 1100 ONCE PO 02/15/17 11:00 02/15/17 11:01 DC 02/15/17 11:53 17 GM Docusate Sodium (coLACE CAP) 100 mg BID PO 02/15/17 21:00 03/17/17 20:59 02/23/17 07:40 100 MG Potassium Chloride (Klor-Con Tab) 20 meq DAILY PO 02/18/17 09:00 02/21/17 08:59 DC 02/20/17 08:31 20 MEQ Lisinopril (Zestril Tab) 20 mg QAM PO 02/18/17 09:00 03/20/17 08:59 Future Hold 02/23/17 07:40 20 MG Lisinopril (Zestril Tab) 20 mg NOW ONCE PO 02/17/17 11:45 02/17/17 12:04 DC 02/17/17 13:51 20 MG (Selina Carr, LISA) Objective Vital Signs Date Time Temp Pulse Resp B/P (MAP) Pulse Ox O2 Delivery O2 Flow Rate FiO2 02/23/17 08:45 36.6 62 20 127/88 (101) 98 Room Air 02/23/17 00:16 36.3 58 18 149/82 (104) 98 02/23/17 00:00 Room Air 02/22/17 16:00 96 Room Air 02/22/17 15:12 36.6 61 16 115/65 (82) 96 Room Air (Selina Carr CRNP) Physical Exam Notes: General: no distress Eyes: normal inspection, PERLL Respiratory: chest non tender, clear to auscultation, normal breath sounds, no respiratory distress, no accessory muscle use Cardiac: regular rate and rhythm, no rub or gallop, no murmur, no edema, no jvd GI/: active bowel sounds, no abd pain or tenderness, soft, non distended Extremities: normal range of motion, normal strength, tender and swollen right thumb, splint in place, brisk capillary refill Neuro/Psych: alert and oriented to self only, normal mood and affect Skin: normal color, dry (Selina Carr CRNP) Laboratory Results Last 24 Hours Test 02/23/17 06:14 Sodium Level 134 mmol/L Potassium Level 4.2 mmol/L Chloride Level 102 mmol/L Carbon Dioxide Level 21 mmol/L Anion Gap 11.0 mmol/L Blood Urea Nitrogen 58 mg/dl Creatinine 2.76 mg/dl Est Creatinine Clear Calc Drug Dose 21.5 ml/min Estimated GFR () 22.7 Estimated GFR (Non- 19.6 BUN/Creatinine Ratio 21.2 Random Glucose 88 mg/dl Calcium Level 8.5 mg/dl (Selina Carr CRNP) Assessment and Plan Acute hypoxic respiratory failure secondary to acute diastolic heart failure in an 86 yo male Acute hypoxic respiratory failure secondary to acute diastolic heart failure - extubated 02/13 - saturating wnl on ra - resolved HTN - continue beta alda, ASA - blood pressures wnl Demand ischemia: mild troponin elevation likely due to hypoxia - no EKG changes - Troponins peaked at 0.43 and trended back down - echo without wall motion abnormalities - resolved Acute diastolic HF with preserved EF - daily weights - lasix held CKD stage IV - creatinine continues to climb - hold lasix and lisinopril - avoid nephrotoxic drugs - prp am Hypokalemia - resolved Dementia - scored 15 on mini mental exam, even corrected for his education level (did not complete high school) this is moderate to severe - will hold off on adding Aricept given age and condition - PT/OT - SNF placement Finger fracture - orthopedic follow up 1-2 weeks after discharge - splint/KAZ wrap Dispo: awaiting SNF placement - patient's family requesting [facility] (Selina Carr ., LISA) I examined patient and I agree with the above note and analysis and plan of the patient. I discussed plan of care with patient and answered all of the questions My exam is below: General: no distress Head: NC, NT neck: No JVD, supple Respiratory: chest non tender, clear to auscultation, normal breath sounds, no respiratory distress, no accessory muscle use Cardiac: regular rate and rhythm, no rub or gallop, no murmur, no edema GI/: active bowel sounds, no abd pain or tenderness, soft, non distended Extremities: normal range of motion, normal strength, tender and swollen right thumb, splint in place, brisk capillary refill Neuro/Psych: alert and oriented to self only, normal mood and affect (Wilder Rodriguez M.D.)
[2017-02-23] MEDS: FAMOTIDINE IV INJ 20 MG in SYRINGE 3 ML IV SCH (10:46)
[2017-02-23 15:51] VITALS: BP 135/80; PULSE 60; TEMP 36.5; O2SAT 93
[2017-02-23 23:45] VITALS: BP 144/79; PULSE 56; TEMP 36.7; O2SAT 95
[2017-02-24] MEDS: LEVOTHYROXINE 25 MCG TAB PO SCH (06:13)
[2017-02-24] MEDS: HEPARIN SOD 5000 UNIT/0.5 ML CARP SQ SCH ×3 (06:18→20:53)
[2017-02-24 07:19] VITALS: BP 111/70; PULSE 62; TEMP 36.4; O2SAT 97
[2017-02-24 07:26] LABS: MEAN CELL VOLUME 92.9 fL (80-100); MEAN CORPUSCULAR HEMOGLOBIN 31.8 pg (25-34); MEAN CORPUSCULAR HGB CONC 34.2 g/dl (32-36); MEAN PLATELET VOLUME 10.7 fL (7.4-10.4); PLATELET COUNT 211 K/uL (130-400); RED BLOOD COUNT 4.09 M/uL (4.7-6.1)
[2017-02-24] MEDS: DOCUSATE SODIUM 100 MG CAP PO SCH ×2 (07:28→20:52)
[2017-02-24] MEDS: ASPIRIN 81 MG CHEW PO SCH (07:28)
[2017-02-24] MEDS: METOPROLOL TARTRATE 25 MG TAB PO SCH ×2 (07:29→20:52)
[2017-02-24 07:58] LABS: BUN/CREATININE RATIO 20.6 (10-20); CREATININE 2.86 mg/dl (0.60-1.40); POTASSIUM 4.2 mmol/L (3.5-5.1)
[2017-02-24] MEDS ORDERED: SODIUM CHLORIDE 0.9% 500ML 500 ML IV SCH ×2 (08:30→15:00)
[2017-02-24] MEDS: FAMOTIDINE IV INJ 20 MG in SYRINGE 3 ML IV SCH (10:54)
--- NOTE | 2017-02-24 13:44 | Hospitalist Progress Note ---
Hospitalist Progress Note Date of Service Feb 24, 2017. (Selina Carr CRNP) Subjective Pt evaluation today including: conversation w/ patient, physical exam, chart review, lab review, review of inpatient medication list Voiding: no voiding problems Mr. Barnard has no complaints today but is only oriented to self. ROS Constitutional: no chills, aches, sweats or fever Respiratory: no sob,cough, sputum, or wheezing Cardiac: no chest pain, palpitations, edema, orthopnea or lightheadedness GI: no abdominal pain, nausea, vomiting, diarrhea or constipation : no dysuria or hesitancy Extremities: no joint pain or weakness Skin: no rash All Other Systems: Reviewed and Negative (Selina Carr CRNP) Medications Medications (Trade) Dose Ordered Sig/Casey Route Start Time Stop Time Status Last Admin Dose Admin Sodium Chloride 500 ml @ 100 mls/hr Q5H IV 02/24/17 08:30 02/24/17 13:29 DC 02/24/17 09:29 100 MLS/HR (Selina Carr CRNP) Objective Vital Signs Date Time Temp Pulse Resp B/P (MAP) Pulse Ox O2 Delivery O2 Flow Rate FiO2 02/24/17 08:00 Room Air 02/24/17 07:19 36.4 62 20 111/70 (84) 97 Room Air 02/24/17 00:00 Room Air 02/23/17 23:45 36.7 56 18 144/79 (100) 95 Room Air 02/23/17 20:00 Room Air 02/23/17 16:15 Room Air 02/23/17 15:51 36.5 60 18 135/80 (98) 93 Room Air (Selina Carr CRNP) Physical Exam Notes: General: no distress Eyes: normal inspection, PERLL Respiratory: chest non tender, clear to auscultation, normal breath sounds, no respiratory distress, no accessory muscle use Cardiac: regular rate and rhythm, no rub or gallop, no murmur, no edema, no jvd GI/: active bowel sounds, no abd pain or tenderness, soft, non distended Extremities: normal range of motion, normal strength, non tender, less edema in right thumb, screw machine tender to palpation, splint in place. Neuro/Psych: alert and oriented x1 to self, normal mood and affect Skin: normal color, dry (Selina Carr CRNP) Laboratory Results Last 24 Hours Test 02/24/17 07:01 White Blood Count 9.00 K/uL Red Blood Count 4.09 M/uL Hemoglobin 13.0 g/dL Hematocrit 38.0 % Mean Corpuscular Volume 92.9 fL Mean Corpuscular Hemoglobin 31.8 pg Mean Corpuscular Hemoglobin Concent 34.2 g/dl RDW Standard Deviation 50.5 fL RDW Coefficient of Variation 14.8 % Platelet Count 211 K/uL Mean Platelet Volume 10.7 fL Sodium Level 136 mmol/L Potassium Level 4.2 mmol/L Chloride Level 101 mmol/L Carbon Dioxide Level 25 mmol/L Anion Gap 10.0 mmol/L Blood Urea Nitrogen 59 mg/dl Creatinine 2.86 mg/dl Est Creatinine Clear Calc Drug Dose 20.8 ml/min Estimated GFR () 21.8 Estimated GFR (Non- 18.8 BUN/Creatinine Ratio 20.6 Random Glucose 94 mg/dl Calcium Level 9.0 mg/dl (Selina Carr CRNP) Assessment and Plan Acute hypoxic respiratory failure secondary to acute diastolic heart failure in an 86 yo male Acute hypoxic respiratory failure secondary to acute diastolic heart failure - extubated 02/13 - saturating wnl on ra - resolved HTN - continue beta alda, ASA - blood pressures wnl Demand ischemia: mild troponin elevation likely due to hypoxia - no EKG changes - Troponins peaked at 0.43 and trended back down - echo without wall motion abnormalities - resolved Acute diastolic HF with preserved EF - daily weights - lasix held CKD stage IV - creatinine continues to climb - hold lasix and lisinopril - avoid nephrotoxic drugs - creat continues to climb - 500 ml nss and repeat prp at 1400 - will give more fluid if creat not improved Hypokalemia - resolved Dementia - scored 15 on mini mental exam, even corrected for his education level (did not complete high school) this is moderate to severe - will hold off on adding Aricept given age and condition - PT/OT - SNF placement Finger fracture - orthopedic follow up 1-2 weeks after discharge - splint/KAZ wrap Dispo: awaiting SNF placement - patient's family requesting [facility] (Selina Carr CRNP) I examined patient and I agree with the above note and analysis and plan of the patient. I discussed plan of care with patient and answered all of the questions My exam is below: General: no distress Head: NC, NT neck: No JVD, supple Respiratory: chest non tender, clear to auscultation, normal breath sounds, no respiratory distress, no accessory muscle use Cardiac: regular rate and rhythm, no rub or gallop, no murmur, no edema GI/: active bowel sounds, no abd pain or tenderness, soft, non distended Extremities: normal range of motion, normal strength, decreased edema in right thumb, splint in place Neuro/Psych: alert and oriented to self only, normal mood and affect (Wilder Rodriguez M.D.)
[2017-02-24 14:44] LABS: BUN/CREATININE RATIO 21.9 (10-20); CALCIUM 8.6 mg/dl (8.5-10.1); CREATININE 2.79 mg/dl (0.60-1.40); POTASSIUM 4.2 mmol/L (3.5-5.1)
[2017-02-24 15:25] VITALS: BP 139/68; PULSE 56; TEMP 36.5; O2SAT 96
[2017-02-24 23:31] VITALS: BP 163/83; PULSE 55; TEMP 36.8; O2SAT 98
[2017-02-25] VITALS (7 sets, daily range): BP systolic 138–182; BP diastolic 73–92; PULSE 56–66; TEMP 36.5–36.6; O2SAT 95–98
[2017-02-25] MEDS: HEPARIN SOD 5000 UNIT/0.5 ML CARP SQ SCH ×3 (05:42→22:31)
[2017-02-25] MEDS: LEVOTHYROXINE 25 MCG TAB PO SCH (06:08)
[2017-02-25] MEDS: METOPROLOL TARTRATE 25 MG TAB PO SCH ×2 (09:00→19:37)
--- NOTE | 2017-02-25 09:06 | Hospitalist Progress Note ---
Hospitalist Progress Note Date of Service Feb 25, 2017. Subjective Pt evaluation today including: conversation w/ patient, physical exam, chart review, lab review, review of studies Pain: None PO Intake: Fair Voiding: sweeney catheter in place The patient was seen and examined this morning. He is sitting up in bedside chair eating pudding when I went to see him. He denies any acute complaints today and states is doing well. ROS: 6 point ROS reviewed and otherwise negative. Objective Vital Signs Date Time Temp Pulse Resp B/P (MAP) Pulse Ox O2 Delivery O2 Flow Rate FiO2 02/25/17 07:32 36.5 57 18 160/79 (106) 97 Room Air 02/25/17 07:15 Room Air 02/25/17 00:00 98 Room Air 02/24/17 23:31 36.8 55 20 163/83 (109) 98 Room Air 02/24/17 16:00 Room Air 02/24/17 15:25 36.5 56 20 139/68 (91) 96 Room Air Physical Exam General Appearance: WD/WN, no apparent distress, + pertinent finding Eyes: PERRL, EOMI ENT: hearing grossly normal, + pertinent finding (poor dentition) Neck: no adenopathy, no JVD Respiratory/Chest: no respiratory distress, no accessory muscle use, + pertinent finding (on Room air) Cardiovascular: regular rate, rhythm, no murmur Abdomen: normal bowel sounds, non tender, soft Extremities: non-tender, no calf tenderness, + pedal edema (Trace edema around ankles) Neurologic/Psychiatric: alert, normal mood/affect, oriented x 3, + pertinent finding (Nonverbal, seems to understand with nodding head, does not follow commands.) Skin: normal color, warm/dry Laboratory Results Last 24 Hours Test 02/24/17 14:10 Sodium Level 135 mmol/L Potassium Level 4.2 mmol/L Chloride Level 102 mmol/L Carbon Dioxide Level 22 mmol/L Anion Gap 12.0 mmol/L Blood Urea Nitrogen 61 mg/dl Creatinine 2.79 mg/dl Est Creatinine Clear Calc Drug Dose 21.3 ml/min Estimated GFR () 22.4 Estimated GFR (Non- 19.4 BUN/Creatinine Ratio 21.9 Random Glucose 108 mg/dl Calcium Level 8.6 mg/dl Assessment and Plan Acute hypoxic respiratory failure secondary to acute diastolic heart failure in an 86 yo male Acute hypoxic respiratory failure secondary to acute diastolic heart failure - extubated 02/13 - saturating wnl on ra - resolved HTN - continue beta alda, ASA - blood pressures slightly elevated in 160s systolic so will restart lisinopril this morning. Held metoprolol 12.5 this morning with HR being in the 50s. Will watch throughout the day and if stable can resume BID dosing tonight. Demand ischemia: mild troponin elevation likely due to hypoxia - no EKG changes - Troponins peaked at 0.43 and trended back down - echo without wall motion abnormalities - resolved Acute diastolic HF with preserved EF - daily weights - lasix held - trace edema in BLE CKD stage IV - creatinine continues to climb - Resume lasix and lisinopril - avoid nephrotoxic drugs - creat improved Hypokalemia - resolved Dementia - scored 15 on mini mental exam, even corrected for his education level (did not complete high school) this is moderate to severe - will hold off on adding Aricept given age and condition - PT/OT - SNF placement Finger fracture - orthopedic follow up 1-2 weeks after discharge - splint/KAZ wrap DVT ppx: heparin subq Dispo:awaiting SNF placement - patient's family requesting [facility]
[2017-02-25] MEDS: ASPIRIN 81 MG CHEW PO SCH (09:48)
[2017-02-25] MEDS: DOCUSATE SODIUM 100 MG CAP PO SCH ×2 (09:48→19:37)
[2017-02-25] MEDS: FAMOTIDINE IV INJ 20 MG in SYRINGE 3 ML IV SCH (10:31)
[2017-02-25] MEDS: LISINOPRIL 20 MG TAB PO SCH (10:31)
[2017-02-25] MEDS ORDERED: SYN25 PO (15:32)
[2017-02-25] MEDS ORDERED: LSX40 PO (15:32)
[2017-02-25] MEDS ORDERED: ASPCH81 PO (15:32)
[2017-02-25] MEDS ORDERED: LSN20 PO (15:32)
[2017-02-25] MEDS ORDERED: LPR25 PO (15:32)
--- NOTE | 2017-02-25 15:41 | Discharge Instructions ---
Discharge Instructions Date of Service Feb 25, 2017. Admission Reason for Admission: Acute respiratory failure Discharge Discharge Diagnosis / Problem: Acute respiratory failure, acute diastolic heart failure Discharge Goals Goal(s): Decrease discomfort, Improve function Activity Recommendations Activity Level: OOB In Chair, Assistance Required Therapies: Physical Therapy, Occupational Therapy Lifting Limitations: none Exercise/Sports Limitations: as tolerated Shower/Bathe: no limitations . Additional Information Patient informed of condition: Yes Advance Directives: Yes DNR: Yes Level of Care: Skilled Communicable Disease: No Prognosis: Stable Oxygen at (LPM): no Abebe Catheter: No Instructions / Follow-Up Instructions / Follow-Up Medications: - LISINOPRIL: 20mg daily for blood pressure control and to treat heart failure - METOPROLOL: 12.5mg twice a day for HR and blood pressure control - LASIX: take 40mg every other day for volume control - ASPIRIN: 81mg daily Diastolic heart failure: ejection fraction preserved, needs to be weighed daily and compliant with medications follow up with [facility] in 3-4 weeks, call for appointment, [phone] CKD stage IV: Cr ranges from 2.2-2.7, continue Lasix every other day, volume has been stable Right thumb fracture: please call [facility] for a follow up appointment in one week, splint in place follow up can be with any provider, was not seen in the hospital Call 911 and go to the Emergency Room if: * You have tightness or pain in your chest that does not go away with rest or Nitroglycerin * You are very short of breath even with rest Call your doctor if any of the following symptoms or problems start or get worse: * Shortness of breath or difficulty breathing * Wake up at night short of breath * Chest pain * Cough * Swelling of your hands, fee, or legs * More fatigued or tired with your normal activity * Palpitations - sudden fast heart beats WEIGHT * Weigh yourself every morning after using the bathroom. * Use the same scale. * Wear the same amount of clothing. * Write your weight down on your chart. * Call your doctor if you gain more than 2-3 pounds in 1-2 days. MEDICATIONS * Use this discharge instruction sheet for instructions. * Take your medications at the time your doctor ordered. * Do not skip a dose of your medicines. * If you miss a dose of medicine, take as soon as possible, but DO NOT DOUBLE A DOSE. * Read your medicine information when you get home. * Know all of the side effects of your medicine. * Call your doctor's office if you have any side effects. * Be sure all of your doctors know what medicine and herbs you take (including cold, flu, and herbal medicine). * Pain Medicine: If you do not get relief from your pain, please call your doctor for help. Take the following with you to your follow-up doctor appointments: * Weight Chart * Medication List * List of questions Do not drink excessive alcohol, beer or wine. Current Hospital Diet Patient's current hospital diet: AHA Diet (Heart Healthy), Low Sodium Diet (2gm Na) Discharge Diet Recommended Diet: Low Sodium Diet (2gm Na) Pending Studies Studies pending at discharge: no Physician Orders On Transfer POLST Discussion: Not Applicable Medical Emergencies . Who to Call and When: Medical Emergencies: If at any time you feel your situation is an emergency, please call 911 immediately. . Non-Emergent Contact Non-Emergency issues call your: Primary Care Provider Call Non-Emergent contact if: you have any medication questions . . "Provider Documentation" section prepared by Clifton Gee. . Core Measure Problem Core Measures: None [place] Drug Monitoring Program Search Results: no issues identified
--- NOTE | 2017-02-25 15:53 | Discharge Summary ---
Discharge Summary Date of Service Feb 25, 2017. Discharge Summary Admission Date: Feb 12, 2017 at 08:55 [facility] Principal Diagnosis: Acute hypoxic respiratory failure secondary to acute diastolic heart failur Problems/Secondary Diagnoses: Acute hypoxic respiratory failure secondary to acute diastolic heart failure HTN Demand ischemia: mild troponin elevation likely due to hypoxia Acute diastolic HF with preserved EF CKD stage IV Hypokalemia - resolved Dementia Finger fracture R hand Procedures: CHEST ONE VIEW PORTABLE 02/12/2017 IMPRESSION: 1. Right perihilar groundglass airspace opacities have slightly progressed. There is improvement in the interstitial thickening within the left lung. This may represent asymmetric pulmonary edema or an atypical pneumonia. 2. Endotracheal tube terminates 4.3 cm from the antonino. KUB 02/12 IMPRESSION: 1. Calcified abdominal aortic aneurysm measuring 5 cm uncorrected for magnification 2. Enteric tube projected over the gastric cardia CHEST ONE VIEW PORTABLE 02/13 IMPRESSION: 1. Tip of endotracheal tube 4.3 cm above the antonino. 2. Slight improvement in extensive right lung airspace opacity with persistent left basilar opacity. The findings favor multifocal pneumonia although asymmetric pulmonary edema could appear similar. CHEST ONE VIEW PORTABLE 02/13 IMPRESSION: 1. Tip of endotracheal tube 3.8 cm above the antonino. 2. Right lung and left basilar airspace opacity. Suspected slight improvement since prior exam. The findings could reflect pneumonia or asymmetric pulmonary edema. CHEST ONE VIEW PORTABLE 02/14 IMPRESSION: 1. Continued slight improvement in the right lung airspace opacities 2. Interval removal of the endotracheal tube and nasogastric tubes. RIGHT HAND 3 VIEWS 02/14 IMPRESSION: 1. There is a mildly distracted fracture through the base of the first distal phalanx with intra-articular extension. 2. There is erosive change versus age indeterminant posttraumatic change involving the tuft of the third distal phalanx. 3. Soft tissue edema is present throughout the hand. 4. Osteopenia and arthritic change as above. Medication Reconciliation New Medications: Aspirin (Aspirin Low Strength) 81 Mg Chew 81 MG PO DAILY, #30 TABS 3 Refills Furosemide (Furosemide) 40 Mg Tab 40 MG PO Q2D, #20 TAB 3 Refills Levothyroxine Sodium (Synthroid) 25 Mcg Tab 25 MCG PO DAILYBB, #30 TAB 3 Refills Lisinopril (Lisinopril) 20 Mg Tab 20 MG PO QAM, #30 TAB 3 Refills Metoprolol Tartrate (Lopressor) 25 Mg Tab 12.5 MG PO BID, #30 TAB 2 Refills Discharge Exam Subjective Pt evaluation today including: conversation w/ patient, physical exam, chart review, lab review, review of studies Pain: None PO Intake: Fair Voiding: no voiding difficulty The patient was seen and examined this morning. He is sitting up in bedside chair eating pudding when I went to see him. He denies any acute complaints today and states is doing well. ROS: 6 point ROS reviewed and otherwise negative. Objective Vital Signs Date Time Temp Pulse Resp B/P (MAP) Pulse Ox O2 Delivery O2 Flow Rate FiO2 02/25/17 07:32 36.5 57 18 160/79 (106) 97 Room Air 02/25/17 07:15 Room Air 02/25/17 00:00 98 Room Air 02/24/17 23:31 36.8 55 20 163/83 (109) 98 Room Air 02/24/17 16:00 Room Air 02/24/17 15:25 36.5 56 20 139/68 (91) 96 Room Air Physical Exam General Appearance: WD/WN, no apparent distress, + pertinent finding Eyes: PERRL, EOMI ENT: hearing grossly normal, + pertinent finding (poor dentition) Neck: no adenopathy, no JVD Respiratory/Chest: no respiratory distress, no accessory muscle use, + pertinent finding (on Room air) Cardiovascular: regular rate, rhythm, no murmur Abdomen: normal bowel sounds, non tender, soft Extremities: non-tender, no calf tenderness, + pedal edema (Trace edema around ankles, +R thumb in cast and KAZ wrap) Neurologic/Psychiatric: alert, normal mood/affect, oriented x 3, + pertinent finding (Nonverbal, seems to understand with nodding head, does not follow commands.) Skin: normal color, warm/dry Hospital Course History of Present Illness Source: clinic records, hospital records Patient is an 86 y/o male, with PMHx of HTN, COPD, cardiac arrhythmia, hypothyroidism, abdominal aneurysm, CKD, h/o TIA/CVA, and GERD, who presented to [facility] due to confusion. Patient is currently intubated and history came from transferred records. Per records, patient lives with his daughter. He normally sleeps in a recliner, and was found beside the recliner, confused, slurred speech, and bedside table knocked over. He was last noted in his normal state of health around 10:00PM on 02/11. He does have a h/o TIAs in the past with similar presentation. Case was reviewed with [facility] neurologist that agreed patient did not qualify for thrombolytics. He was recently diagnosed with an abdominal aneurysm, but according to records, it has been decided that no intervention will be done. ROS cannot be obtained secondary to sedation/intubation. Per CERTIFIED ORTHOTIST PRACTICE MANAGER, patient was agitated at [facility] and was treated with IV Ativan. Had pulmonary edema w/ O2 sats in the 70s. Per records, patient did NOT want mechanical ventilation but POA overruled. He was treated w/ IV Bumex and has diuresed around 1200 ml since transfer. At [facility]: Head CT- unremarkable for acute process EEG- abnormal w/ moderate degree of encephalopathy and focal neuronal disturbance present in L parasagittal head region EKG without acute ischemic changes, trop mildly elevated at 0.063 Physical Exam General Appearance: no apparent distress Head: normocephalic, atraumatic Eyes: PERRL Neck: supple Respiratory/Chest: no accessory muscle use, + crackles (bilateral lung bases ) , + pertinent finding (intubated) Abdomen/GI: normal bowel sounds, non tender, soft Genitourinary - Male: + pertinent finding (Abebe- clear/yellow urine ) Extremities/Musculoskeletal: + swelling (+1-2 pitting edema of bilateral lower extremities ) Neurologic/Psych: + pertinent finding (sedated but responds to stimulati with movement ) Skin: normal color, warm/dry, no rash Hospital Course: Acute hypoxic respiratory failure secondary to acute diastolic heart failure in an 86 yo male Acute hypoxic respiratory failure secondary to acute diastolic heart failure - resolved - intubated on 02/13 and successfully extubated 02/13 - saturating on RA at time of discharge - Continue lasix 40 mg every other day, asa 81 mg - daily weights HTN - continue beta alda, ASA - blood pressures slightly elevated in 160s systolic so will restart lisinopril this morning. Held metoprolol 12.5 this morning with HR being in the 50s. Will watch throughout the day and if stable can resume BID dosing upon discharge Demand ischemia: mild troponin elevation likely due to hypoxia - no EKG changes - Troponins peaked at 0.43 and trended back down - echo without wall motion abnormalities - resolved Acute diastolic HF with preserved EF - daily weights - lasix held - trace edema in BLE CKD stage IV - Cr ranges from 2.2-2.7, continue Lasix every other day, volume has been stable - Resume lasix and lisinopril - avoid nephrotoxic drugs - creat improved Hypokalemia - resolved Dementia - scored 15 on mini mental exam, even corrected for his education level (did not complete high school) this is moderate to severe - will hold off on adding Aricept given age and condition - can be considered by the PCP at follow up - PT/OT - SNF placement R 1st phalynx fracture - orthopedic follow up 1-2 weeks after discharge - splint/KAZ wrap to be continued upon discharge DVT ppx: heparin subq Dispo: Accepted at [facility], discharge today Total Time Spent: Greater than 30 minutes This includes examination of the patient, discharge planning, medication reconciliation, and communication with other providers. Discharge Instructions Please refer to the electronic Patient Visit Report (Discharge Instructions) for additional information. Follow-Up Follow up with your Primary Care Provider within 1 week. Follow up with [facility] in 3-4 weeks, call for appointment, [phone] Follow up with [facility] for a follow up appointment in one week, splint in place
== END 2017-02-25 23:35 | DRG 208 ==
LOC: UNDOADMIN 07:39 → C.MSICU 07:39 → UNDOADMIN 08:55 → C.MSICU 08:55 → C.2T 02-15 15:14 → C.MS2W 02-16 14:50 → ENRESERV 02-16 15:30
PROVIDERS: ADMIT Hospitalist; ATTEND Internal Medicine Sports Medicine
PROC: 5A1945Z Respiratory Ventilation, 24-96 Consecutive Hours (ICD-10-PCS; principal; 2017-02-12)
PROC: 2W3JX1Z Immobilization of Right Finger using Splint (ICD-10-PCS; 2017-02-15)
DX: J96.01 Acute respiratory failure with hypoxia (principal); I50.33 Acute on chronic diastolic (congestive) heart failure; I24.8 Other forms of acute ischemic heart disease; I13.0 Hypertensive heart and chronic kidney disease with heart failure and stage 1 through stage 4 chronic kidney disease, or unspecified chronic kidney disease; N18.4 Chronic kidney disease, stage 4 (severe); E87.6 Hypokalemia; E83.39 Other disorders of phosphorus metabolism; F03.90 Unspecified dementia, unspecified severity, without behavioral disturbance, psychotic disturbance, mood disturbance, and anxiety; S62.521A Displaced fracture of distal phalanx of right thumb, initial encounter for closed fracture; J44.9 Chronic obstructive pulmonary disease, unspecified; K21.9 Gastro-esophageal reflux disease without esophagitis; E03.9 Hypothyroidism, unspecified; Z51.81 Encounter for therapeutic drug level monitoring; Z79.899 Other long term (current) drug therapy; Z86.73 Personal history of transient ischemic attack (TIA), and cerebral infarction without residual deficits; X58.XXXA Exposure to other specified factors, initial encounter

== ENCOUNTER 2017-03-10 18:03 | Inpatient (IN) | payer OTHER ==
[~2017-03-10] VITALS: Ht 188 cm; Wt 85.9 kg
[~2017-03-10 18:03] MED LIST: ASPCH81 PO; LPR25 PO; LSN20 PO; LSX40 PO; SYN25 PO
--- NOTE | 2017-03-10 18:17 | EMERGENCY ROOM VISIT NOTE ---
History Report prepared by Jeanne: Brigid Bergeron Under the Supervision of: Dr. Stacey Rawls M.D. First contact with patient: 18:06 Stated Complaint: BACK PAIN, FALL History of Present Illness The patient is a 86 year old who presents to the Emergency Room with complaints of an episode of a fall occurring 2 hours ago. The patient notes some lower back pain and leg pain. The patient lives at [facility]. Per nursing staff, the patient had an unwitnessed fall and thinks he hit his head when he fell. Nursing reports the patient had slurred speech post fall per [facility] staff. Presently, the patient states he feel fine when he is "not moving." He denies any neck pain. Source of History: patient Onset: 2 hours ago Position: other (global) Quality: other (fall) Timing: other (episode) Modifying Factors (Worsening): movement Associated Symptoms: + back pain, No neck pain Review of Systems See HPI for pertinent positives & negatives. A total of 10 systems reviewed and were otherwise negative. Past Medical & Surgical Medical Problems: (1) Encephalopathy (2) Fall (3) GI bleed Family History Patient reports no known family medical history. Social History Smoking Status: Unknown if Ever Smoked Housing Status: long-term Occupation Status: retired Current/Historical Medications Scheduled Aspirin (Aspirin Chewable), 81 MG PO QAM Furosemide (Lasix), 40 MG PO Q2D Levothyroxine Sodium (Levothyroxine Sodium), 25 MCG PO QAM Lisinopril (Lisinopril), 20 MG PO QAM Metoprolol Tartrate (Lopressor) (Lopressor), 12.5 MG PO BID Nystatin (Nystatin Cream), 1 APPLN TD BID Zinc Oxide (Topical) (Balmex), 1 APPLN TD TID [Med Pass Suppliment], 120 ML PO TID 0900, 1200, 1900 Scheduled PRN Acetaminophen (Tylenol), 650 MG PO Q4H PRN for Pain or Fever Magnesium Hydroxide (Milk of Magnesia), 30 ML PO DAILY PRN for Constipation Zinc Oxide (Topical) (Desitin), 1 APPLN TD DIRECTED PRN for AFTER EACH BM Allergies Coded Allergies: Phenytoin (Verified Allergy, Severe, rash, 03/10/17) Physical Exam Vital Signs Date Time Temp Pulse Resp B/P (MAP) Pulse Ox O2 Delivery O2 Flow Rate FiO2 12/10/17 20:33 88 36 03/10/17 20:03 93 15 03/10/17 20:01 83 11 134/67 03/10/17 19:28 83 16 147/97 03/10/17 19:22 85 03/10/17 19:16 153/55 03/10/17 18:12 36.5 76 20 94/64 100 Room Air Physical Exam Vital signs reviewed. General: Well-appearing older male, pleasantly confused, in no significant distress. HEENT: No scleral icterus, PERRLA, neck supple. Small abrasion on top of left parietal scalp with no active bleeding. Cardiovascular: Regular rate and rhythm, no extra sounds. Pulmonary: Clear to auscultation bilaterally, normal work of breathing. Abdomen: Soft, nontender, nondistended, positive bowel sounds. Musculoskeletal: Atraumatic, no peripheral edema. Neurologic: Patient awake alert and answers some questions appropriately, follows commands, full strength in all 4 extremities. Cranial nerves 2 through 12 grossly intact. Skin: Warm, dry, no rash Rectal: guaiac positive, melanotic stool. Normal mucosa Medical Decision & Procedures ER Provider Diagnostic Interpretation: Radiology results as stated below per my review and radiologist interpretation: HEAD WITHOUT CONTRAST (CT) FINDINGS: No acute intracranial hemorrhage, midline shift, intracranial mass, hydrocephalus, territorial ischemia or abnormal extra-axial collection. Moderate atrophy with ex vacuo ventriculomegaly. Mild chronic microvascular ischemic changes. Vascular calcifications are seen at the level of the skull base, notably within the V4 segment left vertebral artery. The calvarium is intact. The paranasal sinuses, mastoid air cells, and middle ear cavities are clear. Hypoplasia of the frontal sinuses. No large scalp hematoma. IMPRESSION: No acute intracranial abnormality. No calvarial fracture. The above report was generated using voice recognition software. It may contain grammatical, syntax or spelling errors. Electronically signed by: Reddy Mayo M.D. LUMBAR SPINE WITHOUT FINDINGS: The bones appear moderately demineralized. Mild levoscoliosis of the lumbar spine. No sacral insufficiency fracture identified. No acute fracture or subluxation. No compression deformity. Moderate multilevel endplate spurring and facet arthropathy. Severe intervertebral disc space narrowing with partial bony fusion at L5-S1. At least moderate intervertebral disc space narrowing at L4-L5. Large posterior disc osteophyte complex formations are seen at the to L3 and L3-L4 levels. These changes result in very degrees of central canal and foraminal narrowing with central canal stenosis most pronounced at the L2-L3 and L4-L5 levels with there is at least moderate narrowing. Multilevel foraminal stenosis is also present, which appears severe on the right at L4-L5. These findings would be better evaluated by MRI. Bilobed aneurysmal dilation of the abdominal aorta is again seen measuring up to 4.9 cm transversely. No evidence of rupture. Moderate atherosclerosis. Calcifications of the left kidney suggest vascular calcifications. IMPRESSION: 1. No acute lumbar spine fracture or subluxation. 2. At least moderate multilevel endplate spurring and facet arthropathy with intervertebral disc space narrowing as above appears unchanged from comparison CT 01/31/2017. 3. Aneurysm dilation of the abdominal aorta is again seen measuring up to 4.9 cm transversely. 4. Bones appear moderately demineralized. The above report was generated using voice recognition software. It may contain grammatical, syntax or spelling errors. Electronically signed by: Reddy Mayo M.D. ABDOMEN AND PELVIS CT WITHOUT CONTRAST FINDINGS: Mild dependent bibasilar atelectasis. The exam is mildly motion degraded. No pneumatosis or pneumoperitoneum. Imaged inferior cardiac chambers are mildly enlarged. Coronary arterial disease. Low attenuating lesions of the liver again seen suggesting hepatic cysts, largest of which measures 4.0 cm and left hepatic lobe. 1.6 cm lesion of the right hepatic lobe again noted. No intrahepatic biliary ductal dilation. There is suggestion of layering sludge in the gallbladder neck. Multiple scattered calcifications are seen throughout the spleen suggesting prior granulomatous disease. Moderate to severe diffuse pancreatic atrophy. Adrenal glands are within normal limits. Symmetric mild nonspecific bilateral perinephric stranding. 3 mm nonobstructing calculus is seen within the superior pole left kidney. No hydronephrosis. Ureters are within normal limits. Prostamegaly. Moderate distention of the urinary bladder. 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 Bilobed fusiform aneurysmal dilation of the infrarenal abdominal aorta is seen measuring up to 4.8 x 4.5 cm on image 259 series 3. Moderate atherosclerosis of the aorta and iliac vasculature. Small sliding-type hiatal hernia. Moderate wall thickening of the first and second portions of the duodenum is noted with mild surrounding inflammatory stranding. Layering high attenuating material is noted within the duodenum measuring up to 1.5 x 0.9 x 4.7 cm as seen on image 37 series 2 which is new from prior exam. Probable small bowel lipoma noted, 7 mm within the left lower abdomen on image 271 series 3. No bowel obstruction. Moderate colonic diverticulosis without diverticulitis. Appendix appears normal. Tiny fat filled periumbilical hernia. The bones appear moderately demineralized. No acute fracture identified. Multilevel degenerative changes of the spine. IMPRESSION: 1. Moderate wall thickening with surrounding inflammatory stranding is noted involving the first and second portions of the duodenum with layering hyperattenuating material seen dependently measuring up to 4.7 cm. In the setting of abdominal trauma, duodenal hematoma is a differential consideration. 2. Moderate colonic diverticulosis without diverticulitis. 3. Aneurysmal dilation of the descending thoracic aorta and abdominal aorta is noted, both of which measure up to 4.8 cm. 4. 3 mm nonobstructing left renal calculus. 5. Additional findings as above include small sliding-type hiatal hernia, prostamegaly and urinary bladder distention. Electronically signed by: Reddy Mayo M.D. Laboratory Results Test 03/10/17 19:00 03/10/17 19:13 Total Bilirubin 0.6 mg/dl (0.2-1) Direct Bilirubin 0.2 mg/dl (0-0.2) Aspartate Amino Transf (AST/SGOT) 12 U/L (15-37) Alanine Aminotransferase (ALT/SGPT) 16 U/L (12-78) Alkaline Phosphatase 107 U/L (45-117) Total Protein 6.5 gm/dl (6.4-8.2) Albumin 3.4 gm/dl (3.4-5.0) Urine Color YELLOW Urine Appearance CLEAR (CLEAR) Urine pH 5.0 (4.5-7.5) Urine Specific [place] 1.020 (1.000-1.030) Urine Protein NEG (NEG) Urine Glucose (UA) NEG (NEG) Urine Ketones NEG (NEG) Urine Occult Blood NEG (NEG) Urine Nitrite NEG (NEG) Urine Bilirubin NEG (NEG) Urine Urobilinogen NEG (NEG) Urine Leukocyte Esterase NEG (NEG) Date/Time Source Procedure Growth Status 03/10/17 00:00 Nasal MRSA DNA Surveillance Screen - Final Specimen Negative for MRSA by DNA Probe Complete Laboratory results per my review. Medications Administered Medications (Trade) Dose Ordered Sig/Casey Route Start Time Stop Time Status Last Admin Dose Admin Pantoprazole Sodium (Protonix IV Bolus/Drip) 1 ea NOW STAT IV 03/10/17 20:35 03/10/17 20:37 DC 03/10/17 20:35 1 EA Sodium Chloride 1,000 ml @ 125 mls/hr Q8H STAT IV 03/10/17 20:35 03/10/17 23:28 DC 03/10/17 21:56 125 MLS/HR Pantoprazole Sodium 80 mg/ Dextrose 120 ml @ 480 mls/hr NOW STAT IV 03/10/17 20:46 03/10/17 21:00 DC 03/10/17 21:55 480 MLS/HR Pantoprazole Sodium 40 mg/ Dextrose 100 ml @ 20 mls/hr Q5H IV 03/10/17 21:00 04/09/17 20:59 03/13/17 03:52 20 MLS/HR Morphine Sulfate (MoRPHine SULFATE INJ) 2 mg Q3H PRN IV 03/10/17 21:00 03/24/17 20:59 03/12/17 23:27 2 MG ECG Indication: syncope Rate (beats per minute): 83 Rhythm: sinus rhythm Findings: 1st degree AV block, PAC, RBBB, no acute ischemic change, left axis deviation ED Course 1808: Past medical records reviewed. The patient was evaluated in room A11B. A complete history and physical examination was performed. 2034: Ordered Sodium Chloride 1000 ml @ 125 mls/hr IV, Pantoprazole Sodium 1 ea IV. 2045: Ordered Pantoprazole Sodium 80 mg/Dextrose 120 ml @ 480 mls/hr IV. 2040: I reviewed the patient's case with . He will evaluate the patient for further management. Medical Decision Differential diagnosis: Etiologies such as fracture, dislocation, intra-abdominal, pneumothorax, intrathoracic , intracranial, neurologic, as well as other traumatic pathologies were entertained. This pt was evaluated and appeared to be in no distress. IV access was obtained and lab work was drawn. Pt was placed on the personnel monitor. Head CT was performed and is negative. CT lumbar spine was performed d/t c/o lower back pain, this study is significant for degenerative changes, no acute findings. After evaluation of lab work reveals a drop in hbg from 13->9.5, a rectal exam was performed and is guaiac positive melanotic stool. Pt was placed on a protonix drip. He began to c/o significant pain in the abd. Abd exam was repeated and seems benign. CT abd pelvis was ordered and is read as above. Pt did not sustain significant abdominal trauma. I believe this is unlikely to be a duodenal hematoma. Abebe cath was ordered to decompress the bladder. Pt will be evaluated by the hospitalist service for further management. Medication Reconcilliation Current Medication List: was personally reviewed by me Blood Pressure Screening Patient's blood pressure: Elevated blood pressure Blood pressure disposition: Referred to PCP (evaluated by hospitalist) Consults Time Called: 2040 Consulting Physician: Returned Call: 2040 I reviewed the patient's case with . He will evaluate the patient for further management. Impression Primary Impression: GI bleed Additional Impressions: Urinary retention Fall Closed head injury Scribe Attestation The scribe's documentation has been prepared under my direction and personally reviewed by me in its entirety. I confirm that the note above accurately reflects all work, treatment, procedures, and medical decision making performed by me. Departure Information Dispostion Being Evaluated By Hospitalist Referrals No Doctor, Assigned (PCP) Problem Qualifiers
[2017-03-10 19:22] LABS: URINE APPEARANCE CLEAR (CLEAR); URINE BILIRUBIN NEG (NEG); URINE COLOR YELLOW; URINE NITRITE NEG (NEG); UROBILINOGEN NEG (NEG); ZZUR CULT IF INDIC CLEAN CATCH NO
[2017-03-10] MEDS ORDERED: ASPCH81X PO (19:23)
[2017-03-10] MEDS ORDERED: ACET-1311 PO (19:23)
[2017-03-10] MEDS ORDERED: LEVO25TA5 PO (19:23)
[2017-03-10] MEDS ORDERED: ZINC40OI13 TD (19:23)
[2017-03-10] MEDS ORDERED: LSN20 PO (19:23)
[2017-03-10] MEDS ORDERED: NYSCR30 TD (19:23)
[2017-03-10] MEDS ORDERED: FRS/40 PO (19:23)
[2017-03-10] MEDS ORDERED: [UNRECOGNIZED DRUG - OTHER] PO (19:23)
[2017-03-10] MEDS ORDERED: MOMLX PO (19:23)
[2017-03-10] MEDS ORDERED: [UNRECOGNIZED DRUG - CODE] TD (19:23)
[2017-03-10] MEDS ORDERED: METO25TA56 PO (19:23)
[2017-03-10 19:24] LABS: MANUAL MICROSCOPIC REQUIRED? NO; REVIEW REQ? NO
[2017-03-10 19:25] LABS: BASO % 0.1 %; BASO ABS # 0.01 K/uL (0-0.2); COMPLETE YES; EOS % 0.1 %; HEMATOCRIT 27.9 % (42-52); IG% 1.4 %; LYMPH % 8.7 %; LYMPH ABS # 1.21 K/uL (1.2-3.4); MEAN CELL VOLUME 91.5 fL (80-100); MEAN CORPUSCULAR HEMOGLOBIN 31.1 pg (25-34); MEAN CORPUSCULAR HGB CONC 34.1 g/dl (32-36); MEAN PLATELET VOLUME 10.3 fL (7.4-10.4); MONO % 5.5 %; NEUT % 84.2 %; PLATELET COUNT 187 K/uL (130-400); RED BLOOD COUNT 3.05 M/uL (4.7-6.1); WHITE BLOOD COUNT 13.85 K/uL (4.8-10.8)
[2017-03-10 19:38] LABS: BUN/CREATININE RATIO 37.5 (10-20); CALCIUM 8.1 mg/dl (8.5-10.1); CREATININE 2.71 mg/dl (0.60-1.40); POTASSIUM 4.6 mmol/L (3.5-5.1)
--- NOTE | 2017-03-10 19:55 | DIAGNOSTIC IMAGING REPORT ---
HEAD WITHOUT CONTRAST (CT) CLINICAL HISTORY: 86 years-old Male with fall, [facility]. Acute head injury status post fall TECHNIQUE: Multiple axial CT images of the head were obtained without contrast. A dose lowering technique was utilized adhering to the principles of ALARA. CT DOSE: 1405.13 mGy.cm COMPARISON: None. FINDINGS: No acute intracranial hemorrhage, midline shift, intracranial mass, hydrocephalus, territorial ischemia or abnormal extra-axial collection. Moderate atrophy with ex vacuo ventriculomegaly. Mild chronic microvascular ischemic changes. Vascular calcifications are seen at the level of the skull base, notably within the V4 segment left vertebral artery. The calvarium is intact. The paranasal sinuses, mastoid air cells, and middle ear cavities are clear. Hypoplasia of the frontal sinuses. No large scalp hematoma. IMPRESSION: No acute intracranial abnormality. No calvarial fracture. The above report was generated using voice recognition software. It may contain grammatical, syntax or spelling errors. Electronically signed by: Reddy Mayo M.D. 03/10/2017 7:54 PM Dictated Date/Time: 03/10/2017 7:49 PM
--- NOTE | 2017-03-10 20:02 | DIAGNOSTIC IMAGING REPORT ---
LUMBAR SPINE WITHOUT HISTORY: 86 years-old Male fall, low back pain acute low back pain status post fall COMPARISON: CT abdomen 01/31/2017 TECHNIQUE: Multiple axial CT images of the lumbar spine were obtained without IV contrast. A dose lowering technique was used consistent with the principals of ALARA. FINDINGS: The bones appear moderately demineralized. Mild levoscoliosis of the lumbar spine. No sacral insufficiency fracture identified. No acute fracture or subluxation. No compression deformity. Moderate multilevel endplate spurring and facet arthropathy. Severe intervertebral disc space narrowing with partial bony fusion at L5-S1. At least moderate intervertebral disc space narrowing at L4-L5. Large posterior disc osteophyte complex formations are seen at the to L3 and L3-L4 levels. These changes result in very degrees of central canal and foraminal narrowing with central canal stenosis most pronounced at the L2-L3 and L4-L5 levels with there is at least moderate narrowing. Multilevel foraminal stenosis is also present, which appears severe on the right at L4-L5. These findings would be better evaluated by MRI. Bilobed aneurysmal dilation of the abdominal aorta is again seen measuring up to 4.9 cm transversely. No evidence of rupture. Moderate atherosclerosis. Calcifications of the left kidney suggest vascular calcifications. IMPRESSION: 1. No acute lumbar spine fracture or subluxation. 2. At least moderate multilevel endplate spurring and facet arthropathy with intervertebral disc space narrowing as above appears unchanged from comparison CT 01/31/2017. 3. Aneurysm dilation of the abdominal aorta is again seen measuring up to 4.9 cm transversely. 4. Bones appear moderately demineralized. The above report was generated using voice recognition software. It may contain grammatical, syntax or spelling errors. Electronically signed by: Reddy Mayo M.D. 03/10/2017 8:00 PM Dictated Date/Time: 03/10/2017 7:54 PM
[2017-03-10] MEDS ORDERED: SODIUM CHLORIDE 0.9% 1000ML 1,000 ML IV STA (20:35)
[2017-03-10] MEDS ORDERED: PANTOprazole INJ 80 MG in DEXTROSE 5% 100ML IV STA (20:46)
[2017-03-10] MEDS ORDERED: ACETAMINOPHEN 325 MG TAB PO PRN (21:00)
[2017-03-10] MEDS ORDERED: ONDANSETRON INJ 2 MG/ML 2 ML VIAL IV PRN (21:00)
--- NOTE | 2017-03-10 21:49 | DIAGNOSTIC IMAGING REPORT ---
ABDOMEN AND PELVIS CT WITHOUT CONTRAST CT DOSE: 437.28 mGy.cm HISTORY: Acute generalized abdominal pain abd pain, GIB, CRI. Acute abdominal pain status post fall TECHNIQUE: Multiaxial CT images of the abdomen and pelvis were performed without contrast. A dose lowering technique was utilized adhering to the principles of ALARA. COMPARISON STUDY: CT abdomen 01/31/2017, CT lumbar spine of same day. FINDINGS: Mild dependent bibasilar atelectasis. The exam is mildly motion degraded. No pneumatosis or pneumoperitoneum. Imaged inferior cardiac chambers are mildly enlarged. Coronary arterial disease. Low attenuating lesions of the liver again seen suggesting hepatic cysts, largest of which measures 4.0 cm and left hepatic lobe. 1.6 cm lesion of the right hepatic lobe again noted. No intrahepatic biliary ductal dilation. There is suggestion of layering sludge in the gallbladder neck. Multiple scattered calcifications are seen throughout the spleen suggesting prior granulomatous disease. Moderate to severe diffuse pancreatic atrophy. Adrenal glands are within normal limits. Symmetric mild nonspecific bilateral perinephric stranding. 3 mm nonobstructing calculus is seen within the superior pole left kidney. No hydronephrosis. Ureters are within normal limits. Prostamegaly. Moderate distention of the urinary bladder. 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 Bilobed fusiform aneurysmal dilation of the infrarenal abdominal aorta is seen measuring up to 4.8 x 4.5 cm on image 259 series 3. Moderate atherosclerosis of the aorta and iliac vasculature. Small sliding-type hiatal hernia. Moderate wall thickening of the first and second portions of the duodenum is noted with mild surrounding inflammatory stranding. Layering high attenuating material is noted within the duodenum measuring up to 1.5 x 0.9 x 4.7 cm as seen on image 37 series 2 which is new from prior exam. Probable small bowel lipoma noted, 7 mm within the left lower abdomen on image 271 series 3. No bowel obstruction. Moderate colonic diverticulosis without diverticulitis. Appendix appears normal. Tiny fat filled periumbilical hernia. The bones appear moderately demineralized. No acute fracture identified. Multilevel degenerative changes of the spine. IMPRESSION: 1. Moderate wall thickening with surrounding inflammatory stranding is noted involving the first and second portions of the duodenum with layering hyperattenuating material seen dependently measuring up to 4.7 cm. In the setting of abdominal trauma, duodenal hematoma is a differential consideration. 2. Moderate colonic diverticulosis without diverticulitis. 3. Aneurysmal dilation of the descending thoracic aorta and abdominal aorta is noted, both of which measure up to 4.8 cm. 4. 3 mm nonobstructing left renal calculus. 5. Additional findings as above include small sliding-type hiatal hernia, prostamegaly and urinary bladder distention. Electronically signed by: Reddy Mayo M.D. 03/10/2017 9:48 PM Dictated Date/Time: 03/10/2017 9:33 PM
[2017-03-10] MEDS: PANTOprazole INJ 40 MG in DEXTROSE 5% 100ML IV SCH (21:55)
--- NOTE | 2017-03-10 22:12 | History and Physical ---
History & Physical Date & Time of Service: Mar 10, 2017 at 21:32 Chief Complaint: Back Pain, Fall Primary Care Physician: No Doctor, Assigned History of Present Illness Source: patient 86 y/o M Hx CKD IV, HTN, AAA, COPD, diastolic dysfunction, moderate dementia - was admitted 02/12 with hypoxic resp failure and required intubation. The pt was admitted to a nursing facility following DC. He presents following a fall which and trauma to his lower back and possibly his head. No LOC was witnessed. He may have been slurring his speech directly after his fall per [facility] staff. He was c/o lower abdominal pain on arrival to the ER. He is unable to provide a comprehensive history and denies all additional symptoms or symptoms preceding his fall. A CT of the abdomen was obtained without contrast showing a markedly distended bladder - which is likely the cause of his pain - in addition to a possible duodenal wall hematoma. Labs reveal acute anemia and a BUN significantly above baseline. Troponin is also positive, although this appears to be chronic. Past Medical/Surgical History 1) HTN 2) COPD 3) Unspecified cardiac arrhythmia 4) Abdominal aortic aneurysm - 4.9 CM - not a candidate for intervention 5) H/O TIA/CVA 6) Hypothyroidism 7) GERD 8) CKD IV 9) Hypoxic respiratory failure requiring intubation 02/12 10) Metabolic encephalopathy 11) Grade I diastolic dysfunction with preserved EF Family History Could not provide details of family history Social History Smoking Status: Unknown if Ever Smoked Housing status: lives with family Allergies Coded Allergies: Phenytoin (Verified Allergy, Severe, rash, 03/10/17) Home Medications Scheduled Aspirin (Aspirin Chewable), 81 MG PO QAM Furosemide (Lasix), 40 MG PO Q2D Levothyroxine Sodium (Levothyroxine Sodium), 25 MCG PO QAM Lisinopril (Lisinopril), 20 MG PO QAM Metoprolol Tartrate (Lopressor) (Lopressor), 12.5 MG PO BID Nystatin (Nystatin Cream), 1 APPLN TD BID Zinc Oxide (Topical) (Balmex), 1 APPLN TD TID [Med Pass Suppliment], 120 ML PO TID 0900, 1200, 1900 Scheduled PRN Acetaminophen (Tylenol), 650 MG PO Q4H PRN for Pain or Fever Magnesium Hydroxide (Milk of Magnesia), 30 ML PO DAILY PRN for Constipation Zinc Oxide (Topical) (Desitin), 1 APPLN TD DIRECTED PRN for AFTER EACH BM Review of Systems ROS based on NH report and pt input - may not be entirely reliable Constitutional: No fever, No chills, No sweats Eyes: No worsening of vision ENT: No hearing loss, No nasal symptoms Respiratory: No cough, No sputum, No wheezing Cardiovascular: No chest pain, No PND Abdomen: + pain (lower abdominal / suprapubic pain), No nausea, No vomiting Musculoskeletal: No joint pain Genitourinary - Male: + urinary retention, No hematuria Neurologic: + memory loss (chronic moderate dementia) Psychiatric: + depression symptoms Endocrine: + fatigue Hematologic / Lymphatic: + abnormal bleeding/bruising Integumentary: + problem reported (There is a large scar on the R upper extremity - there are is abdominal wall bruising at the site of recent Lovenox injections) Allergic / Immunologic: No environmental allergies Physical Exam Vital Signs Date Time Temp Pulse Resp B/P (MAP) Pulse Ox O2 Delivery O2 Flow Rate FiO2 03/10/17 19:28 83 16 147/97 03/10/17 19:22 85 03/10/17 19:16 153/55 03/10/17 18:12 36.5 76 20 94/64 100 Room Air General Appearance: WD/WN, + pertinent finding (PLeasant elderly male - occasional distress duee to abd pain) Head: normocephalic Eyes: normal inspection ENT: normal ENT inspection, pharynx normal Neck: supple, no JVD Respiratory/Chest: chest non-tender, lungs clear, normal breath sounds Cardiovascular: regular rate, rhythm, no edema, no gallop Abdomen/GI: normal bowel sounds, + pertinent finding (Lower abdomen is distended and diffusely tender - no guarding or rebound) Back: normal inspection, no CVA tenderness Extremities/Musculoskelatal: normal inspection, no calf tenderness, normal capillary refill Neurologic/Psych: project scientist II-XII nml as tested, + pertinent finding (The pt is oriented to person and knows he is in a hospital - he could not tell me the month and has difficulty focusing) Skin: normal color, warm/dry, no rash Diagnostics Laboratory Results Results Past 24 Hours Test 03/10/17 19:00 03/10/17 19:13 Range/Units White Blood Count 13.85 4.8-10.8 K/uL Red Blood Count 3.05 4.7-6.1 M/uL Hemoglobin 9.5 14.0-18.0 g/dL Hematocrit 27.9 42-52 % Mean Corpuscular Volume 91.5 80-100 fL Mean Corpuscular Hemoglobin 31.1 25-34 pg Mean Corpuscular Hemoglobin Concent 34.1 32-36 g/dl Platelet Count 187 130-400 K/uL Mean Platelet Volume 10.3 7.4-10.4 fL Neutrophils (%) (Auto) 84.2 % Lymphocytes (%) (Auto) 8.7 % Monocytes (%) (Auto) 5.5 % Eosinophils (%) (Auto) 0.1 % Basophils (%) (Auto) 0.1 % Neutrophils # (Auto) 11.66 1.4-6.5 K/uL Lymphocytes # (Auto) 1.21 1.2-3.4 K/uL Monocytes # (Auto) 0.76 0.11-0.59 K/uL Eosinophils # (Auto) 0.01 0-0.5 K/uL Basophils # (Auto) 0.01 0-0.2 K/uL RDW Standard Deviation 50.2 36.4-46.3 fL RDW Coefficient of Variation 15.1 11.5-14.5 % Immature Granulocyte % (Auto) 1.4 % Immature Granulocyte # (Auto) 0.20 0.00-0.02 K/uL Sodium Level 129 136-145 mmol/L Potassium Level 4.6 3.5-5.1 mmol/L Chloride Level 99 98-107 mmol/L Carbon Dioxide Level 22 21-32 mmol/L Anion Gap 8.0 3-11 mmol/L Blood Urea Nitrogen 102 7-18 mg/dl Creatinine 2.71 0.60-1.40 mg/dl Est Creatinine Clear Calc Drug Dose 21.3 ml/min Estimated GFR () 23.2 Estimated GFR (Non- 20.0 BUN/Creatinine Ratio 37.5 10-20 Random Glucose 112 70-99 mg/dl Calcium Level 8.1 8.5-10.1 mg/dl Total Bilirubin 0.6 0.2-1 mg/dl Direct Bilirubin 0.2 0-0.2 mg/dl Aspartate Amino Transf (AST/SGOT) 12 15-37 U/L Alanine Aminotransferase (ALT/SGPT) 16 12-78 U/L Alkaline Phosphatase 107 45-117 U/L Total Protein 6.5 6.4-8.2 gm/dl Albumin 3.4 3.4-5.0 gm/dl Urine Color YELLOW Urine Appearance CLEAR CLEAR Urine pH 5.0 4.5-7.5 Urine Specific Holt 1.020 1.000-1.030 Urine Protein NEG NEG Urine Glucose (UA) NEG NEG Urine Ketones NEG NEG Urine Occult Blood NEG NEG Urine Nitrite NEG NEG Urine Bilirubin NEG NEG Urine Urobilinogen NEG NEG Urine Leukocyte Esterase NEG NEG Diagnostic Radiology Lumbar CT: 1) No acute lumbar spine fracture or subluxation. 2. At least moderate multilevel endplate spurring and facet arthropathy with intervertebral disc space narrowing as above appears unchanged from comparison CT 01/31/2017. 3. Aneurysm dilation of the abdominal aorta is again seen measuring up to 4.9 cm transversely. 4. Bones appear moderately demineralized CT abdomen: 1) Moderate wall thickening with surrounding inflammatory stranding is noted involving the first and second portions of the duodenum with layering hyperattenuating material dependently measuring up to 4.7 cm. In setting of abdominal trauma, duodenal hematoma is a differential consideration. 2. Moderate colonic diverticulosis without diverticulitis. 3. Aneurysmal dilation of the descending thoracic aorta and abdominal aorta is noted, both of which measure up to 4.8 cm. 4. 3 mm nonobstructing left renal calculus. 5. Additional findings as above include small sliding-type hiatal hernia, prostamegaly and urinary bladder distention. CT head: No acute findings EKG Sinus , PACs, RBBB, 1st degree AV - no significant morphological change Impression Assessment and Plan 86 y/o M Hx CKD IV, HTN, AAA, COPD, diastolic dysfunction, moderate dementia - was admitted 02/12 with hypoxic resp failure and required intubation. The pt was admitted to a nursing facility following DC. He presents following a fall which and trauma to his lower back and possibly his head. No LOC was witnessed. He may have been slurring his speech directly after his fall per [facility] staff. He was c/o lower abdominal pain on arrival to the ER. He is unable to provide a comprehensive history and denies all additional symptoms or symptoms preceding his fall. A CT of the abdomen was obtained without contrast showing a markedly distended bladder - which is likely the cause of his pain - in addition to a possible duodenal wall hematoma. Labs reveal acute anemia and a BUN significantly above baseline. Troponin is also positive, although this appears to be chronic. 1) Acute anemia - presumed upper GI bleed - placed on Pantoprazole, will keep NPO, consult GI - daily ASA held. Serial Hb requested - will transfuse based on trend or symptoms. The CT of the abdomen raises concern for a duodenal hematoma. This is unlikely to have caused his acute anemia although it may be contributing to his pain. We can consider a surgical consult following GI input if an upper bleed is disqualified. 2) Urinary retention - Abebe placed will keep in place, start Flomax - can undergo voiding trial prior to DC or earlier. 3) CKD - creat is at baseline - BUN elevation may be due to GI bleed. 4) Diastolic CHF - he had been intubated due to pulmonary edema a few weeks priro - he currently takes Lasix EOD which is on held - fluids to be provided with caution - will provide Lasix with transfusions. 5) AAA - is not a surgical candidate - there is no evidence of acute dissection presently and the diameter is unchanged - we will continue his daily B alda. 6) Fall - appears to have been mechanical - denies preceding symptoms - there is no clinical evidence of significant head trauma, lumbar CT does not show acute fractures. His speech is currently clear - will need PT/OT eval prior to DC. 7) COPD - no evidence of exacerbation - PRN inhalers. DNI - full resuscitation Total time for this admit including review of labs, meds, imaging - discussion with pt and ER attending - 40 min I was able to eventually contact his daughter to confirm the obtained blood consent and review the admission with her - she had stated she will be at the hospital at 9a the following day Level of Care Telemetry Resuscitation Status FULL NO MECH VENTILATION VTE Prophylaxis VTE Risk Assessment Done? Y/N: Yes Risk Level: Moderate Given or contraindicated: SCD's
[2017-03-10 22:20] VITALS: BP 165/86; PULSE 78; TEMP 37; O2SAT 97; Ht 188 cm; Wt 85.9 kg
[2017-03-10] MEDS: METOPROLOL TARTRATE 25 MG TAB PO SCH (22:30)
[2017-03-10] MEDS ORDERED: D5W AND NSS 1,000 ML IV ONE (23:15)
[2017-03-10] MEDS: MoRPHine SULFATE 2 MG/ML CARP IV PRN (23:46)
[2017-03-11] VITALS (13 sets, daily range): BP systolic 91–136; BP diastolic 48–81; PULSE 54–87; TEMP 36.2–36.7; O2SAT 91–99
[2017-03-11] MEDS: PANTOprazole INJ 40 MG in DEXTROSE 5% 100ML IV SCH ×5 (03:15→21:59)
[2017-03-11] MEDS: LEVOTHYROXINE 25 MCG TAB PO SCH (06:09)
[2017-03-11 07:13] LABS: BUN/CREATININE RATIO 39.2 (10-20); CALCIUM 7.7 mg/dl (8.5-10.1); CREATININE 2.39 mg/dl (0.60-1.40); POTASSIUM 4.4 mmol/L (3.5-5.1)
--- NOTE | 2017-03-11 07:18 | Family Medicine Progress Note ---
Progress Note Date of Service Mar 11, 2017. Subjective Pt evaluation today including: conversation w/ patient, physical exam, chart review, lab review The patient was seen and examined at bedside. No acute overnight events. Tele showed Afib in the 70s- 90s. Patient is NPO for possible endoscopy today. X- ray shows improved pulm edema but remaining left lobe opacity. Patient is resting comfortably in bed. Denies having any pain. Patient does not remember why he is in the hospital. States that he lives in [facility] and didn't realize he was currently in [place]. No family was in the room. Plan of care was described to the patient and all questions were answered. Constitutional: No fever, No chills, No sweats ENT: No hearing loss Respiratory: No cough, No sputum, No wheezing, No shortness of breath Cardiovascular: No chest pain Abdomen: No pain, No nausea, No vomiting Male : No dysuria Endo: No fatigue Objective Physical Exam General Appearance: WD/WN, no apparent distress Eyes: PERRL, EOMI Neck: supple Respiratory/Chest: chest non-tender, lungs clear, normal breath sounds, no respiratory distress, no accessory muscle use, + pertinent finding (could not appreciate the X-ray result of LLL infiltrate) Cardiovascular: no gallop, no JVD, no murmur, + irregularly irregular Abdomen: normal bowel sounds, non tender, soft, no organomegaly, no pulsatile mass Extremities: normal range of motion, non-tender, normal inspection, no pedal edema, no calf tenderness Neurologic/Psychiatric: no motor/sensory deficits, alert, normal mood/affect, + pertinent finding (Patient was oriented to person, thought it was January, couldn't tell me the year, thought he was in [place], didn't understand why he was in the hospital. ) Assessment and Plan 86M Hx CKD IV, HTN, AAA, COPD, diastolic dysfunction, moderate dementia - was admitted 02/12 with hypoxic resp failure and required intubation. The pt was admitted to a [facility] following DC. He presents following a fall which and trauma to his lower back and possibly his head. No LOC was witnessed. He may have been slurring his speech directly after his fall per [facility] staff. He was c/o lower abdominal pain on arrival to the ER. He is unable to provide a comprehensive history and denies all additional symptoms or symptoms preceding his fall. A CT of the abdomen was obtained without contrast showing a markedly distended bladder - which is likely the cause of his pain - in addition to a possible duodenal wall hematoma. Labs reveal acute anemia and a BUN significantly above baseline. Acute severe anemia with duodenal hematoma - presumed upper GI bleed per admitting team, alexus'ts dementia makes him an unreliable historian. - placed on Pantoprazole drip. - daily ASA held. - Serial Hb requested (9.5-->8.3-->9.4), pt received 2 units of PRBC - Baseline HgB appears to be around 12 from January 2017. - Ordered FOBT, no BM yet in the hospital. - The CT of the abdomen raises concern for a duodenal hematoma. This is unlikely to have caused his acute anemia although it may be contributing to his pain. We can consider a surgical consult following GI input if an upper bleed is disqualified. - Await GI recs - likely upper endoscopy tomorrow. Urinary retention - Abebe placed will keep in place, - start Flomax 0.4mg QAM - can undergo voiding trial prior to DC or earlier. Hyponatremia On admission 129-->134 c/w IVF at 75mls/hr. Continue to monitor. CKD - 2.7-->2.4 - Continue to monitor. Diastolic CHF - he had been intubated due to pulmonary edema a few weeks prior - he currently takes Lasix EOD which is on held - IVF at present at 75mls/hr AAA - is not a surgical candidate - there is no evidence of acute dissection presently and the diameter is unchanged - we will continue his daily Metoprolol 12.5mg PO BID. Fall - unwitnessed per H&P, patient cannot relate the story - denies preceding symptoms - there is no clinical evidence of significant head trauma, lumbar CT does not show acute fractures. - His speech is currently clear - Will order PT and OT after endoscopy. COPD - no evidence of exacerbation - PRN inhalers. Diet Full liquid , NPO after midnight. DNI - full resuscitation - Will confirm code status with POA. Resident Involvement: Resident Care Provided Care Provided: Adult [facility] Medicine Reviewed: Pt Seen/Exam by Me History c/o abdominal pain. denied any other complains Constitutional: denies: fever Respiratory: negative: short of breath Cardiovascular: denies chest pain General Appearance: no apparent distress Respiratory: lungs clear, no respiratory distress Cardiovascular: regular rate, rhythm Gastrointestinal: normal bowel sounds, soft, tenderness (upper abdomen) Neurologic/Psychiatric: alert, other (oriented to place and person) Skin Characteristics: warm/dry Assessment/Plan Resident Physician Supervision Note: I independently interviewed and examined the patient and verified the arellano history and physical, reviewed labs and image studies, discussed the case with the resident Dr. Brown and agree with the findings and care plan.
[2017-03-11] MEDS: METOPROLOL TARTRATE 25 MG TAB PO SCH ×2 (07:38→21:59)
[2017-03-11] MEDS: MoRPHine SULFATE 2 MG/ML CARP IV PRN (07:45)
--- NOTE | 2017-03-11 07:46 | DIAGNOSTIC IMAGING REPORT ---
CHEST ONE VIEW PORTABLE CLINICAL HISTORY: elevated WBC, fall, possible infection. COMPARISON STUDY: 02/14/2017 FINDINGS: The heart is the upper limits of normal in size. There is persistent aneurysmal dilatation of the thoracic aorta. Underlying emphysema is suspected. There has been interval resolution of the bilateral airspace opacities/edema. There are residual patchy airspace opacities the left lung base, atelectatic versus inflammatory.[ IMPRESSION: 1. Persistent aneurysmal dilatation of the thoracic aorta 2. Interval resolution of the bilateral airspace opacities with persistent patchy left basilar opacities, atelectatic versus infectious/inflammatory Electronically signed by: Jeffry Jones M.D. 03/11/2017 7:45 AM Dictated Date/Time: 03/11/2017 7:42 AM
--- NOTE | 2017-03-11 07:53 | Clinical Documentation Query ---
Dr. GUIDO, JUDIE : CLINICAL DOCUMENTATION QUERY Patient is an 86 year old male admitted s/p fall for evaluation. Noted serum sodium on admission of 129 mmol/L. Patient recievied NS in the ED and is recieving D5NSS continuously at this time. Repeat serum sodium this a.m. improved at 134 mmol/L. In your clinical opinion is this patient being managed for: ( x ) Hyponatremia ( ) Not Agree ( ) Other explanation of clinical findings (Please Explain) ( ) Unable to determine (Please Define) ( ) Need to Discuss The medical record reflects the following clinical findings, treatment, and risk factors. Clinical Indicators: As above, possible slurred speech, confusion, weakness, fall Treatment: IV NSS and D5NSS, serial chemistries Risk Factors: Age, diuretics, chronic diastolic CHF Please clarify and document your clinical opinion in the progress notes and discharge summary. Terms such as "probable", "suspected", "likely", "questionable", "possible", or "still to be ruled out" are acceptable. IF IN AGREEMENT, YOU MUST DOCUMENT ABOVE DIAGNOSTIC STATEMENT IN DAILY PROGRESS NOTES AND DISCHARGE SUMMARY. This document is not part of the patient's record. Thank You, Luis F Johnson, SURINDER [phone]
[2017-03-11] MEDS ORDERED: FUROSEMIDE INJ 20 MG in SYRINGE 0 ML IV SCH (08:30)
--- NOTE | 2017-03-11 09:56 | Clinical Documentation Query ---
Dr. DA SILVA [facility] : CLINICAL DOCUMENTATION QUERY Patient is an 86 year old male admitted s/p fall for evaluation. Noted serum sodium on admission of 129 mmol/L. Patient recievied NS in the ED and is recieving D5NSS continuously at this time. Repeat serum sodium this a.m. improved at 134 mmol/L. In your clinical opinion is this patient being managed for: ( x ) Hyponatremia, POA (resolving/resolved) ( ) Not Agree ( ) Other explanation of clinical findings (Please Explain) ( ) Unable to determine (Please Define) ( ) Need to Discuss The medical record reflects the following clinical findings, treatment, and risk factors. Clinical Indicators: As above, possible slurred speech, confusion, weakness, fall Treatment: IV NSS and D5NSS, serial chemistries Risk Factors: Age, diuretics, chronic diastolic CHF Please clarify and document your clinical opinion in the progress notes and discharge summary. Terms such as "probable", "suspected", "likely", "questionable", "possible", or "still to be ruled out" are acceptable. IF IN AGREEMENT, YOU MUST DOCUMENT ABOVE DIAGNOSTIC STATEMENT IN DAILY PROGRESS NOTES AND DISCHARGE SUMMARY. This document is not part of the patient's record. Thank You, Luis F Johnson, SURINDER [phone]
[2017-03-11] MEDS ORDERED: TAMSULOSIN HCL 0.4 MG CAP PO ONE (11:00)
[2017-03-12] VITALS (7 sets, daily range): BP systolic 97–147; BP diastolic 63–76; PULSE 64–81; TEMP 36.3–36.6; O2SAT 91–99
[2017-03-12] MEDS: PANTOprazole INJ 40 MG in DEXTROSE 5% 100ML IV SCH ×5 (03:16→23:24)
[2017-03-12] MEDS: LEVOTHYROXINE 25 MCG TAB PO SCH (05:26)
[2017-03-12] MEDS: MoRPHine SULFATE 2 MG/ML CARP IV PRN ×5 (05:26→23:27)
[2017-03-12 06:43] LABS: BASO % 0.1 %; BASO ABS # 0.01 K/uL (0-0.2); COMPLETE YES; EOS % 1.6 %; IG% 1.2 %; LYMPH % 13.1 %; MEAN CELL VOLUME 91.5 fL (80-100); MEAN CORPUSCULAR HGB CONC 33.9 g/dl (32-36); MEAN PLATELET VOLUME 10.5 fL (7.4-10.4); MONO % 8.7 %; NEUT % 75.3 %; PLATELET COUNT 108 K/uL (130-400); RED BLOOD COUNT 3.06 M/uL (4.7-6.1); WHITE BLOOD COUNT 8.38 K/uL (4.8-10.8)
[2017-03-12 06:54] LABS: INR 1.1 (0.9-1.1); PARTIAL THROMBOPLASTIN RATIO 1.1; PROTHROMBIN TIME (PATIENT) 11.1 SECONDS (9.0-12.0)
[2017-03-12 07:10] LABS: BUN/CREATININE RATIO 31.7 (10-20); CALCIUM 8.1 mg/dl (8.5-10.1); CREATININE 2.86 mg/dl (0.60-1.40); POTASSIUM 4.5 mmol/L (3.5-5.1)
--- NOTE | 2017-03-12 07:25 | Family Medicine Progress Note ---
Progress Note Date of Service Mar 12, 2017. Subjective Pt evaluation today including: conversation w/ patient, physical exam, chart review, lab review The patient was seen and examined at bedside. No acute overnight events. Pt is NPO for a possible scope today. He is complaining of continued colicky abdominal pain. Telemetry showed normal sinus rhythm in the 70s with PACs. Patient is responding to questions appropriately but doesn't know where he is or the current year. Plan of care was described to the patient and all questions were answered. Constitutional: No fever, No chills, No sweats ENT: No hearing loss Respiratory: No cough, No sputum, No wheezing, No shortness of breath Cardiovascular: No chest pain, No edema Abdomen: + pain, + constipation (has not had a BM yet), No vomiting, No diarrhea Musculoskeletal: No joint pain Male : No dysuria Psychiatric: No depression symptoms Objective Physical Exam Notes: General Appearance: WD/WN, no apparent distress Eyes: PERRL, EOMI Neck: supple Respiratory/Chest: chest non-tender, lungs clear, normal breath sounds, no respiratory distress, no accessory muscle use Cardiovascular: no gallop, no JVD, no murmur, regular rate and rhythm. Abdomen: TTP in the RLQ and LLQ, no gaurding, Psoas sign negative, obturator sign negative, there is a sign of hematoma on the skin - may have been related to his fall on admission. Extremities: normal range of motion, non-tender, normal inspection, no pedal edema, no calf tenderness Neurologic/Psychiatric: no motor/sensory deficits, alert, normal mood/affect, + pertinent finding (Patient was oriented to person, but not month or place, patient didn't understand why he was in the hospital - was able to localize and describe his abdominal pain however - colicky in the RLQ). Assessment and Plan 86M Hx CKD IV, HTN, AAA, COPD, diastolic dysfunction, moderate dementia - was admitted 02/12 with hypoxic resp failure and required intubation. The pt was admitted to a [facility] following DC. He presents following a fall which and trauma to his lower back and possibly his head. No LOC was witnessed. He may have been slurring his speech directly after his fall per [facility] staff. He was c/o lower abdominal pain on arrival to the ER. He is unable to provide a comprehensive history and denies all additional symptoms or symptoms preceding his fall. A CT of the abdomen was obtained without contrast showing a markedly distended bladder - which is likely the cause of his pain - in addition to a possible duodenal wall hematoma. Labs reveal acute anemia and a BUN significantly above baseline. Patient is undergoing an upper endoscopy today. Await GI recs. Acute anemia with duodenal hematoma on CT scan - presumed upper GI bleed per admitting team, patient's dementia makes him an unreliable historian. - c/wPantoprazole drip. - daily ASA held. - Serial Hb requested (9.5-->8.3-->9.4-->9.5), pt received 2 units of PRBC - Baseline HgB appears to be around 12 from January 2017. - Ordered FOBT, no BM yet in the hospital. - The CT of the abdomen raises concern for a duodenal hematoma. This is unlikely to have caused his acute anemia although it may be contributing to his pain. We can consider a surgical consult following GI input if an upper bleed is disqualified. - NPO, IVF - Await GI recs from Endoscopy today. Abdominal Pain - Lipase =123 Likely related to duodenal wall hematoma. Hemoglobin stable and no evidence of overt bleeding. Urinary retention - Abebe placed will keep in place, - c/w Flomax 0.4mg QAM - can undergo voiding trial prior to DC or earlier. Hyponatremia (Resolved) On admission 129-->134-->137 c/w IVF at 75mls/hr. Continue to monitor. CKD - 2.7-->2.4-->2.9 - IVF fell off overnight, I restarted this AM. d/c once diet advanced - Continue to monitor. Diastolic CHF - he had been intubated due to pulmonary edema a few weeks prior - he currently takes Lasix EOD which is on held - IVF as above. AAA - is not a surgical candidate - there is no evidence of acute dissection presently and the diameter is unchanged - c/w Metoprolol 12.5mg PO BID. Fall - unwitnessed per H&P, patient cannot relate the story - denies preceding symptoms - there is no clinical evidence of significant head trauma, lumbar CT does not show acute fractures. - His speech is currently clear - Will order PT and OT after endoscopy. COPD - no evidence of exacerbation - PRN inhalers. Hypothyroid Continue synthroid 25mcg daily. Diet Resume diet after endoscopy. DNI - full resuscitation Will confirm code status with POA. Resident Involvement: Resident Care Provided Care Provided: Adult [facility] Medicine Reviewed: Pt Seen/Exam by Me History complaining of his belly aching since morning Constitutional: denies: fever General Appearance: no apparent distress (sitting upright) Respiratory: lungs clear, no respiratory distress Cardiovascular: regular rate, rhythm Gastrointestinal: normal bowel sounds, tenderness (across the upper abdomen. guarding +) Neurologic/Psychiatric: alert, other (oriented to place and person) Skin Characteristics: warm/dry Assessment/Plan Resident Physician Supervision Note: I independently interviewed and examined the patient and verified the arellano history and physical, reviewed labs and image studies, discussed the case with the resident Dr. Brown and agree with the findings and care plan.
[2017-03-12] MEDS: TAMSULOSIN HCL 0.4 MG CAP PO SCH (07:55)
[2017-03-12] MEDS: METOPROLOL TARTRATE 25 MG TAB PO SCH ×2 (07:56→20:29)
[2017-03-12] MEDS: NORMOSOL R 1,000 ML IV SCH ×2 (07:58→20:50)
--- NOTE | 2017-03-12 08:47 | Gastroenterology Progress Note ---
Progress Note Date of Service: Mar 12, 2017 Subjective Pt evaluation today including: conversation w/ patient, conversation w/ family (Urmila daughter on phone), physical exam, chart review, lab review, review of studies CC f/u melena, abd pain HPI Pt states he has lower abd burning. He is unaware of hx of black stools. Per his nurse no stools since admit. Review of Systems Respiratory: No shortness of breath Cardiac: No chest pain Medications Current Inpatient Medications Medications (Trade) Dose Ordered Sig/Casey Route Start Time Stop Time Status Last Admin Dose Admin Pantoprazole Sodium 40 mg/ Dextrose 100 ml @ 20 mls/hr Q5H IV 03/10/17 21:00 04/09/17 20:59 03/12/17 07:51 20 MLS/HR Acetaminophen (Tylenol Tab) 650 mg Q4H PRN PO 03/10/17 21:00 04/09/17 20:59 Ondansetron HCl (Zofran Inj) 4 mg Q6H PRN IV 03/10/17 21:00 04/09/17 20:59 Morphine Sulfate (MoRPHine SULFATE INJ) 2 mg Q3H PRN IV 03/10/17 21:00 03/24/17 20:59 03/12/17 08:02 2 MG Levothyroxine Sodium (Synthroid Tab) 25 mcg DAILYBB PO 03/11/17 06:00 04/10/17 06:59 03/12/17 05:26 25 MCG Metoprolol Tartrate (Lopressor Tab) 12.5 mg BID PO 03/10/17 22:30 04/09/17 22:29 03/12/17 07:56 12.5 MG Miscellaneous Information (Order Awaiting Action) 1 ea QS N/A 03/11/17 00:00 04/10/17 00:00 Tamsulosin HCl (Flomax Cap) 0.4 mg QAM PO 03/12/17 09:00 04/11/17 08:59 03/12/17 07:55 0.4 MG Parenteral Electrolyte Solution 1,000 ml @ 75 mls/hr [id number] IV 03/12/17 07:30 04/11/17 07:29 03/12/17 07:58 75 MLS/HR Objective Vital Signs Date Time Temp Pulse Resp B/P (MAP) Pulse Ox O2 Delivery O2 Flow Rate FiO2 03/12/17 07:39 36.3 65 19 134/76 (95) 91 Room Air 03/12/17 05:08 36.5 81 20 147/72 (97) 99 Room Air 03/12/17 04:00 Room Air 03/12/17 00:00 Room Air 03/11/17 23:12 36.7 73 18 115/55 (75) 98 Room Air 03/11/17 20:00 Room Air 03/11/17 19:37 36.5 76 20 115/48 (70) 91 Room Air 03/11/17 16:06 Room Air 03/11/17 15:51 36.2 71 20 93/54 (67) 96 Room Air 03/11/17 14:26 36.4 65 20 110/69 98 03/11/17 13:26 36.5 76 20 103/65 98 03/11/17 12:56 36.4 72 20 118/68 99 03/11/17 12:00 Room Air 03/11/17 11:50 36.5 56 20 95/61 99 03/11/17 10:50 36.5 80 20 94/57 98 03/11/17 10:20 36.5 54 20 91/59 99 03/11/17 10:00 36.6 64 20 98/64 99 Physical Exam General Appearance: WD/WN, no apparent distress Cardiovascular: regular rate, rhythm Abdomen: normal bowel sounds, soft, no organomegaly, no pulsatile mass, + pertinent finding (LUQ guarding but no rebound, abdomen soft. ) Laboratory Results Last 24 Hours Test 03/11/17 16:17 03/12/17 06:26 Hemoglobin 9.4 g/dL 9.5 g/dL White Blood Count 8.38 K/uL Red Blood Count 3.06 M/uL Hematocrit 28.0 % Mean Corpuscular Volume 91.5 fL Mean Corpuscular Hemoglobin 31.0 pg Mean Corpuscular Hemoglobin Concent 33.9 g/dl Platelet Count 108 K/uL Mean Platelet Volume 10.5 fL Neutrophils (%) (Auto) 75.3 % Lymphocytes (%) (Auto) 13.1 % Monocytes (%) (Auto) 8.7 % Eosinophils (%) (Auto) 1.6 % Basophils (%) (Auto) 0.1 % Neutrophils # (Auto) 6.31 K/uL Lymphocytes # (Auto) 1.10 K/uL Monocytes # (Auto) 0.73 K/uL Eosinophils # (Auto) 0.13 K/uL Basophils # (Auto) 0.01 K/uL RDW Standard Deviation 52.2 fL RDW Coefficient of Variation 15.8 % Immature Granulocyte % (Auto) 1.2 % Immature Granulocyte # (Auto) 0.10 K/uL Prothrombin Time 11.1 SECONDS Prothromb Time International Ratio 1.1 Activated Partial Thromboplast Time 29.3 SECONDS Partial Thromboplastin Ratio 1.1 Sodium Level 137 mmol/L Potassium Level 4.5 mmol/L Chloride Level 106 mmol/L Carbon Dioxide Level 22 mmol/L Anion Gap 9.0 mmol/L Blood Urea Nitrogen 91 mg/dl Creatinine 2.86 mg/dl Est Creatinine Clear Calc Drug Dose 20.8 ml/min Estimated GFR () 21.8 Estimated GFR (Non- 18.8 BUN/Creatinine Ratio 31.7 Random Glucose 94 mg/dl Calcium Level 8.1 mg/dl Assessment and Plan Melena--continue PPI. Discussed with daughter Urmila on phone regarding doing EGD versus watch and wait on treatment.. She stated just had scope in [place] 2016 but no results available. I discussed his Hgb 9.5 vs 13 on 02/24/17, melena suggestive of UGI bleeding and abnormal duodenum on CT. She has oked doing EGD today. Procedure and risks explained which include but not limited to med reaction, bleeding, perforation, aspiration. abnormal duodenum on CT--examine at time of EGD anemia--stable abdominal pain--perhaps related to process in duodenum
--- NOTE | 2017-03-12 09:10 | GASTROINTESTINAL CONSULTATION ---
DATE OF CONSULTATION: 03/11/2017 CHIEF COMPLAINT: Anemia, abnormal CT imaging. HISTORY OF PRESENT ILLNESS: Mr. Barnard is an 86-year-old white male with mostly multiple medical problems whom we are being asked to see regarding an anemia and an abnormal CT scan reflecting a possible duodenal hematoma. The patient had a fall at the snf with trauma to the lower back and possibly to the head. The patient is unable to give any meaningful information and although appears awake and alert and seems to respond appropriately, he is also somewhat confused as to the events of the case or his current symptoms. According to the ER notes, there was no witnessed loss of consciousness. The patient describes lower abdominal pain on the ER which prompted CT imaging. There is a markedly distended gallbladder as well as a possible duodenal wall hematoma. This was a noncontrast CT. The patient has what appears to be an acute anemia. The patient also has chronically elevated troponin levels. The patient does not seem to recall any description of recent melena, bright red blood per rectum, hematemesis or coffee-ground emesis. I could not clearly establish if nausea and vomiting was experienced by the patient. Weight loss could also not be determined by patient history. PAST MEDICAL HISTORY: Significant for hypertension, COPD, cardiac dysrhythmia, AAA of 4.9 cm, although is not a surgical candidate, history of TIA, CVA, hypothyroidism, GERD, chronic kidney disease, hypoxemia, encephalopathy and diastolic dysfunction with preserved EF. FAMILY HISTORY: Unobtainable. SOCIAL HISTORY: Unobtainable. The patient lives recently at a nursing facility where he experienced this fall. ALLERGIES: HE IS ALLERGIC TO PHENYTOIN. HOME MEDICATIONS: Include aspirin, furosemide, Lasix, lisinopril, metoprolol, nystatin, and zinc. CURRENT HOSPITAL MEDICATIONS: Include tamsulosin, levothyroxine, Lopressor, pantoprazole, acetaminophen, morphine p.r.n. REVIEW OF SYSTEMS: Otherwise noncontributory based on 13-point exam except for mentioned above. The patient is unaware of any prior history of peptic ulcer disease, intestinal cancers or prior surgeries. PHYSICAL EXAMINATION: VITAL SIGNS: At the time of this evaluation include blood pressure 95/61, 99% on room air, respirations 20, pulse 56, temperature 36.5. GENERAL: The patient is awake and alert but not clearly oriented to person, place and time. He does note that he is in [place] and that it is 2017, but can recall little else in the assessment orientation. HEENT: Sclerae are anicteric, conjunctiva moist. Oral mucosa moist. NECK: There is no cervical or supraclavicular adenopathy. I do not appreciate thyromegaly. HEART: Normal S1, S2. LUNGS: Clear to auscultation. ABDOMEN: Soft, perhaps minimally tender in the epigastrium, although this was not always reproducible. The patient did gesture that when moving in bed that he was uncomfortable but when asked if he would not affirm his discomfort. Palpation in the mid abdomen around the umbilicus was uneventful. There are positive bowel sounds. There is no evidence of ascites or shifting dullness. EXTREMITIES: Showed normal range of motion. Without clubbing, cyanosis or edema. NEUROLOGIC: Nonfocal. RECTAL: Deferred. LABORATORY STUDIES: On admission, white count is 13.8. His hemoglobin was 9.5 and as of earlier this morning was 8.3, platelets 187,000. The patient did receive 2 units of packed red blood cells on 03/11/2017 around midday. BUN and creatinine are elevated on admission at 102 BUN and creatinine 2.71. These drifted down slightly today at 94 and 2.39. Sodium 134, potassium 4.5. Liver tests were normal on admission. Total and direct bilirubin 0.6 and 0.2. AST 12, ALT 16, alkaline phosphatase 107 Lipase was not determined on admission. IMAGING: Reveals CT scan of the abdomen and pelvis with a distended gallbladder, hepatic cyst, no evidence of intra or extrahepatic ductal dilation, layering sludge in the gallbladder neck is noted. There are calcifications in the spleen suggesting prior granulomatous disease. Diffuse pancreatic atrophy. Adrenals normal. There is perinephric stranding in the left kidney lesion region, small sliding hiatal hernia. The descending thoracic aorta is 4.8 cm. There is also an infrarenal abdominal aortic aneurysm of 4.8 x 4.5. In the duodenum, there is evidence of thickening in the first and second portions with surrounding inflammation and stranding. There is a high attenuation accumulation of material in the duodenum at approximately 1.5 x 0.9 x 4.7. This is new compared to prior imaging. There is no evidence for diverticulitis, although diverticulosis was noted. IMPRESSION AND PLAN: Mr. Barnard is an 86-year-old white male who fell at an extended care facility and may have had a trauma to the abdomen. Acute pancreatitis is not described on the CT scan, although I do not see an admission lipase value. We would like to add this on to lab for order as a separate entity if this is not possible. The source of the patient's blood decrease is unclear. He had been having a hemoglobin in the range of 12-13 in January 2017 and this therefore reflects a clear 3-4 gram drop in hemoglobin from approximately 1 month ago. Nevertheless, there is no obvious description of melena, bright red blood per rectum, hematemesis or coffee ground emesis. It is possible that the accumulation in the duodenal region may reflect the duodenal wall hematoma and based on its size may reflect, at least in part, some of the drop in his blood count. I believe it is reasonable to perform an upper endoscopy if the primary team is agreeable and will make provisions for this tomorrow as there is no overt bleeding described by nursing at this time. We would follow hemoglobin serially. Lipase to be added. At some point, an alternative method to assess for hematoma may be needed either with a tagged red blood cell scan, particularly if the hemoglobin continues to drop or if pain is suggestive of retroperitoneal bleeding. All questions answered. The patient will require consent from the family member prior to endoscopy. We would keep patient n.p.o. for procedure tomorrow, although may have some sips of clears today if there is no abdominal pain and if hemoglobin remains stable. We would continue PPI therapy.
[2017-03-12] MEDS ORDERED: EpHEDrine SULFATE 50MG/5ML SYR ONE (14:19)
[2017-03-12] MEDS ORDERED: LIDOCAINE HCL 2% 2 ML VIAL (20MG/ML) ONE (14:19)
[2017-03-12] MEDS ORDERED: PHENYLEPHRINE 100MCG/ML 5ML SYR ONE (14:19)
[2017-03-12] MEDS ORDERED: PROPOFOL IV EMULSION 10 MG/ML 20 ML VIAL IV ONE (14:19)
--- NOTE | 2017-03-12 14:26 | GI REPORT ---
Procedure Date: 03/12/2017 1:54 PM Procedure: Upper GI endoscopy Indications: Melena, Abnormal CT of the GI tract--possible duodenal hematoma Medicines: Monitored Anesthesia Care Complications: No immediate complications. Estimated Blood Loss: Estimated blood loss was minimal. Procedure: Pre-Anesthesia Assessment: - The risks and benefits of the procedure and the sedation options and risks were discussed with the patients alvaro Sylvester.. All questions were answered and informed consent was obtained. - Patient identification and proposed procedure were verified prior to the procedure by the physician, the nurse and the inker machine. The procedure was verified in the procedure room. After obtaining informed consent, the endoscope was passed under direct vision. Throughout the procedure, the patient's blood pressure, pulse, and oxygen saturations were monitored continuously. The scope was introduced through the mouth, and advanced to the third part of duodenum. The upper GI endoscopy was accomplished without difficulty. The patient tolerated the procedure well. Procedure and risks explained to patients daughter Urmila which include but not limited to medication reaction, bleeding, perforation, aspiration , and missed lesions. Judicious gas insufflation was used and gas removal done on the way out. The lumen was always visualized when advancing the scope. Prep was good. Washes and suctioning used as needed to get good visualization of the mucosa. Retroflexion to look at the fundus and cardia of the stomach and GE junction was done. Findings: The Z-line was regular and was found 40 cm from the incisors. A 3 cm hiatus hernia was present. Patchy mildly erythematous mucosa was found in the gastric antrum. Biopsies were taken with a cold forceps for Helicobacter pylori testing. Estimated blood loss was minimal. Several large cratered duodenal ulcers one with adherent small clot were found in the second part of the duodenum. . The ulcer with adherent clot was successfully injected with 2 mL of a 1:10,000 solution of epinephrine for hemostasis. Estimated blood loss: none. The only blood noted was small clot on ulcer and minimal post biopsy bleeding of antrum. The exam was otherwise without abnormality. Impression: - Z-line regular, 40 cm from the incisors. - 3 cm hiatus hernia. - Erythematous mucosa in the antrum. Biopsied. - Several duodenal ulcers with adherent clot. Injected. - The only blood noted was small clot on ulcer and minimal post biopsy bleeding of antrum. - The examination was otherwise normal. Recommendation: - Return patient to hospital [facility] for ongoing care. - Clear liquid diet. - Continue PPI. Luis F Weber M.D. Luis F Weber MD 03/12/2017 2:25:26 PM This report has been signed electronically. Note Initiated On: 03/12/2017 1:54 PM I attest to the content of the Intraoperative Record and orders documented therein, exceptions below
--- NOTE | 2017-03-12 14:32 | Anesthesiology Progress Note ---
Anesthesia Post Op Note Date & Time Mar 12, 2017 at 14:31 Vital Signs Pain Intensity: 0 Vital Signs Past 12 Hours Date Time Temp Pulse Resp B/P (MAP) Pulse Ox O2 Delivery O2 Flow Rate FiO2 03/12/17 14:16 70 16 90/44 (59) 98 Room Air 03/12/17 13:21 36.5 58 16 139/54 (82) 97 Room Air 03/12/17 12:00 94 Room Air 03/12/17 11:49 36.4 68 19 107/63 (78) 98 Room Air 03/12/17 08:00 92 Room Air 03/12/17 07:39 36.3 65 19 134/76 (95) 91 Room Air 03/12/17 05:08 36.5 81 20 147/72 (97) 99 Room Air 03/12/17 04:00 Room Air Notes Mental Status: alert / awake / arousable, participated in evaluation Pt Amnestic to Procedure: Yes Nausea / Vomiting: adequately controlled Pain: adequately controlled Airway Patency, RR, SpO2: stable & adequate BP & HR: stable & adequate Hydration State: stable & adequate Anesthetic Complications: no major complications apparent
--- NOTE | 2017-03-12 14:44 | Progress Note ---
Progress Note Date of Service Mar 12, 2017. Progress Note Pt stable post EGD. abdomen soft. Clear liquids for now since had clot on ulcer
[2017-03-13] VITALS (7 sets, daily range): BP systolic 113–152; BP diastolic 51–75; PULSE 68–90; TEMP 36.3–36.8; O2SAT 94–99
[2017-03-13] MEDS: PANTOprazole INJ 40 MG in DEXTROSE 5% 100ML IV SCH ×5 (03:52→23:58)
[2017-03-13] MEDS: LEVOTHYROXINE 25 MCG TAB PO SCH (06:26)
[2017-03-13 07:01] LABS: BASO % 0.1 %; BASO ABS # 0.01 K/uL (0-0.2); COMPLETE YES; EOS % 2.3 %; IG% 1.4 %; LYMPH % 12.6 %; LYMPH ABS # 0.91 K/uL (1.2-3.4); MEAN CELL VOLUME 92.5 fL (80-100); MEAN CORPUSCULAR HEMOGLOBIN 31.5 pg (25-34); MEAN CORPUSCULAR HGB CONC 34.1 g/dl (32-36); MEAN PLATELET VOLUME 10.4 fL (7.4-10.4); MONO % 9.9 %; NEUT % 73.7 %; PLATELET COUNT 108 K/uL (130-400); RED BLOOD COUNT 2.92 M/uL (4.7-6.1); WHITE BLOOD COUNT 7.25 K/uL (4.8-10.8)
[2017-03-13 07:35] LABS: BUN/CREATININE RATIO 32.4 (10-20); CALCIUM 7.8 mg/dl (8.5-10.1); CREATININE 2.4 mg/dl (0.60-1.40); POTASSIUM 4.1 mmol/L (3.5-5.1)
[2017-03-13] MEDS: METOPROLOL TARTRATE 25 MG TAB PO SCH ×2 (08:10→20:36)
[2017-03-13] MEDS: NORMOSOL R 1,000 ML IV SCH (08:10)
[2017-03-13] MEDS: TAMSULOSIN HCL 0.4 MG CAP PO SCH (08:10)
--- NOTE | 2017-03-13 14:17 | Family Medicine Progress Note ---
Progress Note Date of Service Mar 13, 2017. Subjective Pt evaluation today including: conversation w/ patient, physical exam, chart review, lab review The patient was seen and examined at bedside. No acute overnight events. Patient continues to be on a clear liquid diet. Tele showed sinus rhythm in the 50s and 60s. Pt's mental status is at baseline. Pt is not complaining of abdominal pain but when asked specifically about his stomach he says it hurts. Patient is responding to questions appropriately but still doesn't know where he is or the current year. Plan of care was described to the patient and all questions were answered. Constitutional: No fever, No chills, No sweats ENT: No hearing loss Respiratory: No cough, No sputum, No wheezing, No shortness of breath Cardiovascular: No chest pain, No edema Abdomen: + pain, + constipation (has not had a BM yet), No vomiting, No diarrhea Musculoskeletal: No joint pain Male : No dysuria Psychiatric: No depression symptoms Objective Physical Exam Notes: General Appearance: WD/WN, no apparent distress Eyes: PERRL, EOMI Neck: supple Respiratory/Chest: chest non-tender, lungs clear, normal breath sounds, no respiratory distress, no accessory muscle use Cardiovascular: no gallop, no JVD, no murmur, regular rate and rhythm. Abdomen: Less tender the LLQ and RLQ than previous day, no guarding, soft, no organo or hepatomegaly. Extremities: normal range of motion, non-tender, normal inspection, no pedal edema, no calf tenderness Neurologic/Psychiatric: no motor/sensory deficits, alert, normal mood/affect, + pertinent finding (Patient was oriented to person, but not month or place, patient didn't understand why he was in the hospital). Assessment and Plan 86M Hx CKD IV, HTN, AAA, COPD, diastolic dysfunction, moderate dementia - was admitted 02/12 with hypoxic resp failure and required intubation. The pt was admitted to a [facility] following DC. He presents following a fall which and trauma to his lower back and possibly his head. No LOC was witnessed. He may have been slurring his speech directly after his fall per [facility] staff. He was c/o lower abdominal pain on arrival to the ER. He is unable to provide a comprehensive history due to his baseline off dementia. On admission he denied all additional symptoms or symptoms preceding his fall. A CT of the abdomen was obtained without contrast showing a markedly distended bladder in addition to a possible duodenal wall hematoma. Labs reveal acute anemia and a BUN significantly above baseline. Upper endoscopy shows several large cratered duodenal ulcers. Per GI we will continue the PPI drip and await biopsies for H. Pylori. Acute blood loss anemia secondary to Duodenal ulcers - c/w Pantoprazole drip. - daily ASA held. - Serial Hb requested (9.5-->...-->9.2), pt received 2 units of PRBC - Baseline HgB appears to be around 12 from January 2017 Abdominal Pain - Lipase =123 - Likely related to duodenal ulcer. Hemoglobin stable and no evidence of overt bleeding. Urinary retention - Abebe placed will keep in place, - c/w Flomax 0.4mg QAM - can undergo voiding trial prior to DC or earlier. Hyponatremia (Resolved) On admission 129-->134-->137 c/w IVF at 75mls/hr. Continue to monitor. CKD - 2.7-->...-->2.4 - Pt is tolerating PO, will hold IVF. Diastolic CHF - he had been intubated due to pulmonary edema a few weeks prior - he currently takes Lasix EOD which is on held - Consider Restarting Lasix on DC. AAA - is not a surgical candidate - there is no evidence of acute dissection presently and the diameter is unchanged - c/w Metoprolol 12.5mg PO BID. Fall - unwitnessed per H&P, patient cannot relate the story - denies preceding symptoms - there is no clinical evidence of significant head trauma, lumbar CT does not show acute fractures. - His speech is currently clear - PT/OT - recommend [facility]. COPD - no evidence of exacerbation - PRN inhalers. Hypothyroid Continue Synthroid 25mcg daily. Diet Full Liquid. Dispo - Med Surg DNI - full resuscitation Will confirm code status with POA. (she wasn't present today, I would like to do this in person) Resident Involvement: Resident Care Provided Care Provided: Adult Hospital Medicine Reviewed: Pt Seen/Exam by Me History reports abdominal pain is better Constitutional: denies: fever Respiratory: negative: short of breath Cardiovascular: denies chest pain General Appearance: no apparent distress Respiratory: lungs clear, no respiratory distress Cardiovascular: regular rate, rhythm Gastrointestinal: normal bowel sounds, non tender, soft Neurologic/Psychiatric: alert, other (oriented to place and person) Skin Characteristics: warm/dry Assessment/Plan Resident Physician Supervision Note: I independently interviewed and examined the patient and verified the arellano history and physical, reviewed labs and image studies, discussed the case with the resident Dr. Brown and agree with the findings and care plan.
--- NOTE | 2017-03-13 16:09 | PROGRESS NOTE ---
DATE: 03/13/2017 SUBJECTIVE: The patient underwent an EGD by Dr. Weber, and was found to have a duodenal ulcer yesterday with an adherent clot, this was injected with epinephrine and the patient has been transfused 2 units of blood. His hemoglobin and hematocrit have remained stable. Hemoglobin of 9.2 today. He has had no bowel movements recorded in the last 3 days. During the endoscopy, antral biopsies were obtained for H. pylori and are pending at this time. IMPRESSION AND PLAN: The patient has duodenal ulcer with bleeding and consequent anemia. The patient is currently stable. Plan on continuing the Protonix for now and waiting this biopsies for H. pylori.
[2017-03-13] MEDS: MoRPHine SULFATE 2 MG/ML CARP IV PRN (17:54)
[2017-03-14] MEDS: NORMOSOL R 1,000 ML IV SCH (00:29)
[2017-03-14] MEDS: MoRPHine SULFATE 2 MG/ML CARP IV PRN (03:10)
[2017-03-14] MEDS ORDERED: RISPERIDONE ODT 0.5MG PO ONE (04:00)
[2017-03-14] MEDS: LEVOTHYROXINE 25 MCG TAB PO SCH (04:43)
[2017-03-14] MEDS: PANTOprazole INJ 40 MG in DEXTROSE 5% 100ML IV SCH (04:50)
[2017-03-14 07:25] VITALS: BP 116/60; PULSE 84; TEMP 36.6; O2SAT 98
[2017-03-14 07:27] VITALS: BP 100/68; PULSE 91; TEMP 36.5; O2SAT 96
[2017-03-14] MEDS ORDERED: PANTOprazole SOD 40 MG TAB PO SCH (08:00)
[2017-03-14] MEDS: TAMSULOSIN HCL 0.4 MG CAP PO SCH (08:19)
[2017-03-14] MEDS: METOPROLOL TARTRATE 25 MG TAB PO SCH (08:19)
[2017-03-14 08:30] VITALS: O2SAT 96
[2017-03-14 08:50] LABS: BASO % 0.1 %; BASO ABS # 0.01 K/uL (0-0.2); EOS % 2.6 %; HEMATOCRIT 24.4 % (42-52); IG% 0.9 %; LYMPH % 16.2 %; LYMPH ABS # 1.24 K/uL (1.2-3.4); MEAN CELL VOLUME 92.4 fL (80-100); MEAN CORPUSCULAR HEMOGLOBIN 31.4 pg (25-34); MEAN PLATELET VOLUME 10.1 fL (7.4-10.4); MONO % 9.9 %; NEUT % 70.3 %; PLATELET COUNT 123 K/uL (130-400); RED BLOOD COUNT 2.64 M/uL (4.7-6.1); WHITE BLOOD COUNT 7.64 K/uL (4.8-10.8)
[2017-03-14 09:16] LABS: COMPLETE YES; POIKILOCYTOSIS PRESENT
[2017-03-14 09:19] LABS: BUN/CREATININE RATIO 28.4 (10-20); CALCIUM 7.9 mg/dl (8.5-10.1); CREATININE 2.36 mg/dl (0.60-1.40); POTASSIUM 4.2 mmol/L (3.5-5.1)
[2017-03-14] MEDS ORDERED: POLYETHYLENE (MIRALAX) 17 GM PACK PO ONE (11:41)
[2017-03-14 12:00] LABS: HEMATOCRIT 22.8 % (42-52)
--- NOTE | 2017-03-14 12:44 | PROGRESS NOTE ---
DATE: 03/14/2017 SUBJECTIVE: The patient has had no obvious further bleeding. He has had no bowel movements and his hemoglobin has remained stable in the 8 range. Unfortunately, his gastric biopsy was not stained for H. pylori and only to contact pathology to do this stain. I tried to call him twice and have not been able to get through today. IMPRESSION: Duodenal ulcers with bleeding. The patient is stable. He has been advanced to oral Protonix at 40 b.i.d. today. Will get the stains for H. pylori from his gastric biopsies, once able to contact pathology.
[2017-03-14 12:47] VITALS: BP 100/68; PULSE 91; O2SAT 96
[2017-03-14] MEDS ORDERED: PRT40 PO (13:52)
--- NOTE | 2017-03-14 13:58 | Discharge Instructions ---
Discharge Instructions Date of Service Mar 14, 2017. Admission Reason for Admission: Fall, Gi Bleed Discharge Discharge Diagnosis / Problem: Duodenal Ulcers Discharge Goals Goal(s): Decrease discomfort, Improve function, Increase independence, Improve nutritional status, Learn about illness Activity Recommendations Activity Limitations: per Instructions/Follow-up section . Instructions / Follow-Up Instructions / Follow-Up You are being prescribed a new medication called Pantoprazole for your duodenal ulcers. This is most likely the reason your were found to have a low red blood cell count. Please take this medication as prescribed. We will be attaching information on duodenal ulcers and pantoprazole, please read this information carefully. We recommend that you stop taking your Lisinopril and Lasix medications on discharge because your blood pressure was low-normal while in the hospital. We also recommend stopping your Aspirin indefinitely. Aspirin can worsen duodenal ulcers and can cause bleeding. We recommend following up with your primary care provider at [facility] within the next week. Your Primary care Provider will be able to further manage your blood pressure and assess for signs of heart failure - in the event of these events your Lisinopril or Lasix may need to be restarted. Current Hospital Diet Patient's current hospital diet: Clear Liquid Diet Discharge Diet Recommended Diet: Regular Diet Procedures Procedures Performed: EGD Pending Studies Studies pending at discharge: no Medical Emergencies . Who to Call and When: Medical Emergencies: If at any time you feel your situation is an emergency, please call 911 immediately. . Non-Emergent Contact Non-Emergency issues call your: Primary Care Provider . . "Provider Documentation" section prepared by Jian Brown. . VTE Core Measure Inpt VTE Proph given/why not?: SCD's Resident Involvement: Resident Care Provided Care Provided: Adult Hospital Medicine
[2017-03-14 15:19] VITALS: BP 100/68; PULSE 91; TEMP 36.5; O2SAT 96
[2017-03-14 15:25] VITALS: BP 104/51; PULSE 68; TEMP 36.7
--- NOTE | 2017-03-14 15:45 | Discharge Summary ---
Discharge Summary Date of Service Mar 14, 2017. Discharge Summary Admission Date: Mar 10, 2017 at 21:01 Discharge Date: Mar 14, 2017 Discharge Disposition: [facility] facility Principal Diagnosis: Duodenal Ulcers Procedures: Procedure: Upper GI endoscopy Impression: - Z-line regular, 40 cm from the incisors. - 3 cm hiatus hernia. - Erythematous mucosa in the antrum. Biopsied. - Several duodenal ulcers with adherent clot. Injected. - The only blood noted was small clot on ulcer and minimal post biopsy bleeding of antrum. - The examination was otherwise normal. Recommendation: - Return patient to hospital barber for ongoing care. - Clear liquid diet. - Continue PPI. Sinus rhythm with Premature atrial complexes Left axis deviation Right bundle branch block Abnormal ECG When compared with ECG of 10-MAR-2017 19:20, (unconfirmed) No significant change Confirmed by DALE AARON ([id number]) on 03/11/2017 10:16:57 AM HEAD WITHOUT CONTRAST (CT) CLINICAL HISTORY: 86 years-old Male with fall, [facility]. Acute head injury status post fall TECHNIQUE: Multiple axial CT images of the head were obtained without contrast. A dose lowering technique was utilized adhering to the principles of ALARA. CT DOSE: 1405.13 mGy.cm COMPARISON: None. FINDINGS: No acute intracranial hemorrhage, midline shift, intracranial mass, hydrocephalus, territorial ischemia or abnormal extra-axial collection. Moderate atrophy with ex vacuo ventriculomegaly. Mild chronic microvascular ischemic changes. Vascular calcifications are seen at the level of the skull base, notably within the V4 segment left vertebral artery. The calvarium is intact. The paranasal sinuses, mastoid air cells, and middle ear cavities are clear. Hypoplasia of the frontal sinuses. No large scalp hematoma. IMPRESSION: No acute intracranial abnormality. No calvarial fracture. ABDOMEN AND PELVIS CT WITHOUT CONTRAST CT DOSE: 437.28 mGy.cm HISTORY: Acute generalized abdominal pain abd pain, GIB, CRI. Acute abdominal pain status post fall TECHNIQUE: Multiaxial CT images of the abdomen and pelvis were performed without contrast. A dose lowering technique was utilized adhering to the principles of ALARA. COMPARISON STUDY: CT abdomen 01/31/2017, CT lumbar spine of same day. FINDINGS: Mild dependent bibasilar atelectasis. The exam is mildly motion degraded. No pneumatosis or pneumoperitoneum. Imaged inferior cardiac chambers are mildly enlarged. Coronary arterial disease. Low attenuating lesions of the liver again seen suggesting hepatic cysts, largest of which measures 4.0 cm and left hepatic lobe. 1.6 cm lesion of the right hepatic lobe again noted. No intrahepatic biliary ductal dilation. There is suggestion of layering sludge in the gallbladder neck. Multiple scattered calcifications are seen throughout the spleen suggesting prior granulomatous disease. Moderate to severe diffuse pancreatic atrophy. Adrenal glands are within normal limits. Symmetric mild nonspecific bilateral perinephric stranding. 3 mm nonobstructing calculus is seen within the superior pole left kidney. No hydronephrosis. Ureters are within normal limits. Prostamegaly. Moderate distention of the urinary bladder. 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 Bilobed fusiform aneurysmal dilation of the infrarenal abdominal aorta is seen measuring up to 4.8 x 4.5 cm on image 259 series 3. Moderate atherosclerosis of the aorta and iliac vasculature. Small sliding-type hiatal hernia. Moderate wall thickening of the first and second portions of the duodenum is noted with mild surrounding inflammatory stranding. Layering high attenuating material is noted within the duodenum measuring up to 1.5 x 0.9 x 4.7 cm as seen on image 37 series 2 which is new from prior exam. Probable small bowel lipoma noted, 7 mm within the left lower abdomen on image 271 series 3. No bowel obstruction. Moderate colonic diverticulosis without diverticulitis. Appendix appears normal. Tiny fat filled periumbilical hernia. The bones appear moderately demineralized. No acute fracture identified. Multilevel degenerative changes of the spine. IMPRESSION: 1. Moderate wall thickening with surrounding inflammatory stranding is noted involving the first and second portions of the duodenum with layering hyperattenuating material seen dependently measuring up to 4.7 cm. In the setting of abdominal trauma, duodenal hematoma is a differential consideration. 2. Moderate colonic diverticulosis without diverticulitis. 3. Aneurysmal dilation of the descending thoracic aorta and abdominal aorta is noted, both of which measure up to 4.8 cm. 4. 3 mm nonobstructing left renal calculus. 5. Additional findings as above include small sliding-type hiatal hernia, prostamegaly and urinary bladder distention. Medication Reconciliation New Medications: Pantoprazole (Pantoprazole Sodium) 40 Mg Tab 40 MG PO BID for 30 Days, #30 TAB Continued Medications: Acetaminophen (Tylenol) 325 Mg Tab 650 MG PO Q4H PRN for Pain or Fever, TAB Furosemide (Lasix) 40 Mg Tab 40 MG PO Q2D, TAB Levothyroxine Sodium (Levothyroxine Sodium) 25 Mcg Tab 25 MCG PO QAM for 90 Days, #90 TAB 3 Refills Lisinopril (Lisinopril) 20 Mg Tab 20 MG PO QAM Magnesium Hydroxide (Milk of Magnesia) 30 Ml Susp 30 ML PO DAILY PRN for Constipation Metoprolol Tartrate (Lopressor) (Lopressor) 25 Mg Tab 12.5 MG PO BID, TAB Nystatin (Nystatin Cream) 90 Appln/30 Gm Cr 1 APPLN TD BID, #15 GM APPLY BETWEEN 4TH & 5TH TOES X 14 DAYS. ENDS 03/12/17 AM. Zinc Oxide (Topical) (Balmex) 11.3 % Cre 1 APPLN TD TID APPLY TO BUTTOCKS & COCCYX QSHIFT FOR 21 DAYS. ENDS ON 03/19/17 AM. Zinc Oxide (Topical) (Desitin) 40 % Oin 1 APPLN TD DIRECTED PRN for AFTER EACH BM APPLY TO BUTTOCKS & COCCYX FOR 21 DAYS. ENDS ON 03/18/17. [Med Pass Suppliment] () 120 ML PO TID 0900, 1200, 1900 Discontinued Medications: Aspirin (Aspirin Chewable) 81 Mg Chew 81 MG PO QAM, TAB Discharge Exam The patient was seen and examined at bedside. No acute overnight events. Patient continues to be on a clear liquid diet. Tele showed sinus rhythm in the 50s and 60s. Pt's mental status is at baseline. Pt is not complaining of abdominal pain but when asked specifically about his stomach he says it hurts. Patient is responding to questions appropriately but still doesn't know where he is or the current year. Plan of care was described to the patient and all questions were answered. Constitutional: No fever, No chills, No sweats ENT: No hearing loss Respiratory: No cough, No sputum, No wheezing, No shortness of breath Cardiovascular: No chest pain, No edema Abdomen: + pain, + constipation (has not had a BM yet), No vomiting, No diarrhea Musculoskeletal: No joint pain Male : No dysuria Psychiatric: No depression symptoms Physical Exam General Appearance: WD/WN, no apparent distress Eyes: PERRL, EOMI Neck: supple Respiratory/Chest: chest non-tender, lungs clear, normal breath sounds, no respiratory distress, no accessory muscle use Cardiovascular: no gallop, no JVD, no murmur, regular rate and rhythm. Abdomen: Less tender the LLQ and RLQ than previous day, no guarding, soft, no organo or hepatomegaly. Extremities: normal range of motion, non-tender, normal inspection, no pedal edema, no calf tenderness Neurologic/Psychiatric: no motor/sensory deficits, alert, normal mood/affect, + pertinent finding (Patient was oriented to person, but not month or place, patient didn't understand why he was in the hospital). Hospital Course 86M Hx CKD IV, HTN, AAA, COPD, diastolic dysfunction, moderate dementia - was admitted 02/12 with hypoxic resp failure and required intubation. The pt came from [facility]. He presents following a fall which and trauma to his lower back and possibly his head. No LOC was witnessed. He may have been slurring his speech directly after his fall per [facility] staff. He was c/o lower abdominal pain on arrival to the ER. He is unable to provide a comprehensive history due to his baseline off dementia. On admission he denied all additional symptoms or symptoms preceding his fall. CT Head was negative. A CT of the abdomen was obtained without contrast showing a markedly distended bladder in addition to a possible duodenal wall hematoma. Labs revealed acute anemia around 9.0 (baseline around 12) and a BUN significantly above baseline. Patient was put on IV protonix drip. He transfused two units of PRBC and monitored on telemetry. Upper endoscopy showed several large cratered duodenal ulcers one of which was injected with epinephrine. Biopsies for H. Pylori were negative. Patient was clinically stable and serial hemoglobins were tracked. Patient was discharged back to [facility] on 40mg BID of Pantoprazole to protect against further GI bleeding and was advised to stop taking his Aspirin. Because the patient was normotensive during his hospital stay while off Lasix and Lisinopril, we held these meds on discharge. They may be resumed at PCPs discretion. Total Time Spent: Greater than 30 minutes (44 min) This includes examination of the patient, discharge planning, medication reconciliation, and communication with other providers. Discharge Instructions Please refer to the electronic Patient Visit Report (Discharge Instructions) for additional information. Follow-Up PCP at [facility] within one week. Resident Involvement: Resident Care Provided Care Provided: Adult [facility] Medicine Reviewed: Pt Seen/Exam by Me Constitutional: denies: fever Respiratory: negative: short of breath Cardiovascular: denies chest pain General Appearance: no apparent distress Respiratory: lungs clear, no respiratory distress Cardiovascular: regular rate, rhythm Gastrointestinal: normal bowel sounds, non tender, soft Neurologic/Psychiatric: alert, other (oriented to place and person) Skin Characteristics: warm/dry Assessment/Plan Resident Physician Supervision Note: I independently interviewed and examined the patient and verified the arellano history and physical, reviewed labs and image studies, discussed the case with the resident Dr. Brown and agree with the findings and care plan.
[2017-03-15] MEDS ORDERED: POLYETHYLENE (MIRALAX) 17 GM PACK PO SCH (08:00)
== END 2017-03-14 16:50 | DRG 378 ==
LOC: EDBD 18:03 → C.EDA 18:06 → C.2T 21:01 → ENRESERV 21:25 → C.4E 03-13 17:50
PROVIDERS: ADMIT Internal Medicine; ATTEND Family Medicine
PROC: 0W3P8ZZ Control Bleeding in Gastrointestinal Tract, Via Natural or Artificial Opening Endoscopic (ICD-10-PCS; principal; 2017-03-12 13:15)
PROC: 0DB68ZX Excision of Stomach, Via Natural or Artificial Opening Endoscopic, Diagnostic (ICD-10-PCS; principal; 2017-03-12 13:15)
DX: K26.4 Chronic or unspecified duodenal ulcer with hemorrhage (principal); N18.4 Chronic kidney disease, stage 4 (severe); I13.0 Hypertensive heart and chronic kidney disease with heart failure and stage 1 through stage 4 chronic kidney disease, or unspecified chronic kidney disease; I50.30 Unspecified diastolic (congestive) heart failure; E87.1 Hypo-osmolality and hyponatremia; D62 Acute posthemorrhagic anemia; I71.4 Abdominal aortic aneurysm, without rupture; J44.9 Chronic obstructive pulmonary disease, unspecified; F03.90 Unspecified dementia, unspecified severity, without behavioral disturbance, psychotic disturbance, mood disturbance, and anxiety; R33.9 Retention of urine, unspecified; K21.9 Gastro-esophageal reflux disease without esophagitis; E03.9 Hypothyroidism, unspecified; K44.9 Diaphragmatic hernia without obstruction or gangrene; Z79.82 Long term (current) use of aspirin; Z79.899 Other long term (current) drug therapy; Z86.73 Personal history of transient ischemic attack (TIA), and cerebral infarction without residual deficits